=== PATIENT | female | born 1935 | race Caucasian/White ===

== ENCOUNTER 2018-01-29 16:00 | Emergency (ER) | payer OTHER ==
--- OUTSIDE RECORDS SUMMARY | 2018-01-29 16:02 | XMS REPORT | Clinical Summary ---
:1935 Author Organization [facility] Address [address] [place] [address] Phone Care Team Providers Name Role Phone Unavailable Primary Care Provider Unavailable Allergies Active Allergy Reactions Severity Noted Date Comments Ragweed 02/03/2017 Seasonal Allergies Current Medications Prescription Sig. Disp. Refills Start Date End Date Status LEVOTHYROXINE SODIUM Take 125 mcg by Active (LEVOTHYROXINE ORAL) mouth daily . losartan (COZAAR) 25 Take 25 mg by Active MG tablet mouth daily. LEVOCETIRIZINE Take 5 mg by mouth Active DIHYDROCHLORIDE daily. (LEVOCETIRIZINE ORAL) metoprolol Take 25 mg by Active (TOPROL-XL) 25 MG 24 mouth daily. hr tablet mirabegron Take by mouth. Active (MYRBETRIQ) 50 mg Tb24 gabapentin Take 300 mg by Active (NEURONTIN) 300 MG mouth 3 (three) capsule times daily. amLODIPine (NORVASC) Take 10 mg by Active 10 MG tablet mouth nightly. glucosamine-chondroit Take by mouth. Active -vit C-Mn (GLUCOSAMINE CHONDROITIN) 500-400 mg Cap coenzyme Q10 (CO Take 10 mg by Active Q-10) 10 mg capsule mouth daily. DOCOSAHEXANOIC Take by mouth. Active ACID/EPA (FISH OIL ORAL) VITS Take by mouth. Active A,C,E/LUTEIN/ZEAX/ZN/ PRABHJOT (EYE HEALTH FORMULA ORAL) phenazopyridine Take 1 tablet (100 30 tablet 0 02/12/2017 (PYRIDIUM) 100 MG mg total) by mouth 7 tablet 3 (three) times daily as needed for Pain for up to 10 days. sulfamethoxazole-trim Take 1 tablet (160 10 tablet 0 02/12/2017 ethoprim (BACTRIM DS) mg of trimethoprim 7 800-160 mg per tablet total) by mouth 2 (two) times daily for 5 days. Active Problems Problem Noted Date Stress incontinence 02/12/2017 Encounters Date Type Specialty Care Team Description 02/12/2017 Hospital Encounter Shon Swann MD 02/12/2017 Surgery Shon Swann CYSTOSCOPY,TANNER Dill MD TION OF DRUGS 02/03/2017 Hospital Encounter Pre-Admission Shon Swann MD 02/03/2017 Anesthesia Event ManoloutLinda MD after 01/28/2017 Social History Tobacco Use Types Packs/Day Years Used Date Never Smoker Sex Assigned at Date Recorded Not on file Last Filed Vital Signs Vital Sign Reading Time Taken Blood Pressure 164/71 02/12/2017 4:35 PM CDT Pulse 54 02/12/2017 4:35 PM CDT Temperature 36.6 C (97.8 F) 02/12/2017 4:35 PM CDT Respiratory Rate 16 02/12/2017 4:35 PM CDT Oxygen Saturation 99% 02/12/2017 4:35 PM CDT Inhaled Oxygen Concentration - - Weight 62.9 kg (138 lb 9.6 oz) 02/12/2017 8:19 AM CDT Height 154.9 cm (5' 1") 02/12/2017 8:19 AM CDT Body Mass Index 26.19 02/12/2017 8:19 AM CDT Plan of Treatment Not on file Implants Implanted Type Area Extracorporeal Circulation Specialist Device Expiration Model / Identifier Date Serial / Lot Ndl Inj Bulk Coaptite 1ml 890-300 - [id number] Cement/ N/A: LONOKE 2018 890-300 / Implanted: Qty: 1 on 02/12/2017 by Shon Swann MD Filler/ Urethra SCI:UROLOGY/POPCORN VENDOR / [employer] [id number] e Ndl Inj Bulk Coaptite 1ml 890-300 - [id number] Cement/ N/A: LONOKE 2018 890-300 / Implanted: Qty: 1 on 02/12/2017 by Shon Swann MD Filler/ Urethra SCI:UROLOGY/POPCORN VENDOR / [employer] [id number] e Ndl Inj Bulk Coaptite 1ml 890-300 - [id number] Cement/ N/A: LONOKE 2018 890-300 / Implanted: Qty: 1 on 02/12/2017 by Shon Swann MD Filler/ Urethra SCI:UROLOGY/POPCORN VENDOR / [employer] [id number] e Ndl Inj Bulk Coaptite 1ml 890-300 - [id number] Cement/ N/A: LONOKE 2018 890-300 / Implanted: Qty: 1 on 02/12/2017 by Shon Swann MD Filler/ Urethra SCI:UROLOGY/POPCORN VENDOR / [employer] [id number] e Procedures Procedure Name Priority Date/Time Associated Diagnosis Comments CYSTOSCOPY,INSTILLATION 02/12/2017 10:30 AM CDT Stress incontinence OF DRUGS Special Needs (COAPITE) after 01/28/2017 Results RHYTHM STRIP - SCAN (02/13/2017 10:55 AM)Hemoglobin and hematocrit (02/03/2017 10:46 AM) Component Value Ref Range Hemoglobin 13.5 12.0 - 15.0 GM/DL Hematocrit 39.6 36.0 - 45.0 % Specimen Performing Laboratory Blood [address] [address] Urinalysis w/ Microscopic (02/03/2017 10:46 AM) Component Value Ref Range Color, UA Yellow Clarity, UA Clear Specific [place], UA 1.014 1.001 - 1.035 pH, UA 5.5 5.0 - 8.0 Protein, UA Negative Negative Glucose, UA Negative Negative Ketones, UA Negative Negative Bilirubin, UA Negative Negative Blood, UA Small (A) Negative Nitrite, UA Negative Negative Leukocytes, UA Large (A) Negative Urobilinogen, UA 0.2 0.2 - 1.0 mg/dL RBC, UA 1 /HPF WBC, UA 12 /HPF Bacteria, UA Occasional Mucus Rare Squam Epithel, UA 4 /HPF Specimen Source Specimen Performing Laboratory Urine [address] [address] Urine culture (02/03/2017 10:46 AM) Component Value Ref Range Result See comment Specimen Performing Laboratory Urine - Urine, Unspecified Source [address] [address] Narrative >100,000 col/mL skin merry <10,000 col/mL Gram Negative Issa BUN and Creatinine (02/03/2017 10:45 AM) Component Value Ref Range BUN 24 (H) 7 - 21 mg/dL Creatinine 1.31 (H) 0.57 - 1.25 mg/dL EGFR 39Comment: ESTIMATED GFR IS NOT ACCURATE mL/min/1.73 sq m CREATININE CLEARANCE IN PREDICTING GLOMERULAR FILTRATION RATE. ESTIMATED GFR IS NOT APPLICABLE FOR DIALYSIS PATIENTS. Specimen Performing Laboratory Blood [address] [address] Glucose (02/03/2017 10:45 AM) Component Value Ref Range Glucose 97 70 - 105 mg/dL Specimen Performing Laboratory Blood [address] [address] Narrative Effective 09/06/2014: Reference Range Change-Adult only New: 70-105 Previous: 70-110 Electrolytes (02/03/2017 10:45 AM) Component Value Ref Range Sodium 139 136 - 145 meq/L Potassium 4.8 3.5 - 5.1 meq/L Chloride 105 98 - 107 meq/L CO2 21 (L) 22 - 29 meq/L Specimen Performing Laboratory Blood [address] [address] after 01/28/2017
--- OUTSIDE RECORDS SUMMARY | 2018-01-29 16:03 | XMS REPORT ---
:1935 Author Organization [facility] Address [address] [place] [address] Care Team Providers Name Role Phone NINI NICOLE Unavailable Unavailable Problems This patient has no known problems. Allergies, Adverse Reactions, Alerts This patient has no known allergies or adverse reactions. Medications This patient has no known medications. Results Test Description Test Time Test Comments Text Results Atomic Results Result Comments URINE CULTURE 2017-02-05 13:44:00 Test Item Value Reference Range Comments CULTURE (BEAKER) (test juit=3786) See comment >100,000 col/mL skin merry<10,000 col/mL Gram Negative [id number] 11:53:00 Test Item Value Reference Range Comments SODIUM (BEAKER) (test kgfd=934) 139 meq/L 136-145 POTASSIUM (BEAKER) (test uevg=951) 4.8 meq/L 3.5-5.1 CHLORIDE (BEAKER) (test xdwt=984) 105 meq/L 98-107 CO2 (BEAKER) (test lgdm=739) 21 meq/L 22-29 [id number] 11:53:00 Test Item Value Reference Range Comments GLUCOSE RANDOM (BEAKER) (test hhaz=649) 97 mg/dL 70-105 Effective 09/06/2014: Reference Range Change-Adult onlyNew: 70-105 Previous : 70-110BUN AND [id number] 11:53:00 Test Item Value Reference Range Comments BLOOD UREA NITROGEN 24 mg/dL 7-21 (BEAKER) (test zwdw=942) CREATININE (BEAKER) (test 1.31 mg/dL 0.57-1.25 vmtl=818) EGFR (BEAKER) (test 39 mL/min/1.73 sq m ESTIMATED GFR IS NOT wher=9303) ACCURATE CREATININE CLEARANCE IN PREDICTING GLOMERULAR FILTRATION RATE. ESTIMATED GFR IS NOT APPLICABLE FOR DIALYSIS PATIENTS. URINALYSIS W/ [id number] 11:34:00 Test Item Value Reference Range Comments COLOR (BEAKER) (test hylb=808) Yellow CLARITY (BEAKER) (test wjwd=920) Clear SPECIFIC GRAVITY UA (BEAKER) (test abzh=479) 1.014 1.001-1.035 PH UA (BEAKER) (test urwm=285) 5.5 5.0-8.0 PROTEIN UA (BEAKER) (test vkec=188) Negative Negative GLUCOSE UA (BEAKER) (test nrta=219) Negative Negative KETONES UA (BEAKER) (test yfmc=000) Negative Negative BILIRUBIN UA (BEAKER) (test yjkp=303) Negative Negative BLOOD UA (BEAKER) (test xkyb=543) Small Negative NITRITE UA (BEAKER) (test hauj=674) Negative Negative LEUKOCYTE ESTERASE UA (BEAKER) (test xdzd=525) Large Negative UROBILINOGEN UA (BEAKER) (test kxdj=624) 0.2 mg/dL 0.2-1.0 RBC UA (BEAKER) (test ortr=653) 1 /HPF WBC UA (BEAKER) (test zkpa=421) 12 /HPF BACTERIA (BEAKER) (test rznb=484) Occasional MUCUS (BEAKER) (test yqgt=2902) Rare SQUAMOUS EPITHELIAL (BEAKER) (test wijp=437) 4 /HPF SOURCE(BEAKER) (test cepq=8404) HEMOGLOBIN AND [id number] 11:30:00 Test Item Value Reference Range Comments HEMOGLOBIN (BEAKER) (test ttxw=768) 13.5 GM/DL 12.0-15.0 HEMATOCRIT (BEAKER) (test xmns=397) 39.6 % 36.0-45.0
[2018-01-29 17:26] LABS: Absolute Lymphocytes (CBC) 0.3 K/uL (0.7-4.9); Absolute Monocytes 0.2 K/uL (0.1-1.3); Basophils % 0.3 % (0-1.3); Eosinophils % 0.3 % (0-4.4); Hematocrit 34.5 % (36.0-45.0); Lymphocytes % 3.5 % (15.3-44.8); MCH 32.1 pg (27.0-35.0); MCV 96.5 fL (80-100); MPV 7.6 fL (7.6-11.3); Monocytes % 3.1 % (3.3-12.3); RBC Red Blood Cell Count 3.57 M/uL (3.86-4.86)
[2018-01-29] MEDS ORDERED: ONDANSETRON 4 MG/2 ML VIAL ONE (17:51)
[2018-01-29] MEDS ORDERED: CEFTRIAXONE/SWI 1gm 1 GM/10 ML SYR ONE (17:51)
[2018-01-29] MEDS ORDERED: NA CHLORIDE 0.9% 1,000 ML ONE (17:51)
[2018-01-29] MEDS ORDERED: CYANOCOBALAMIN 1000MCG/ML INJ IM ONE (18:00)
[2018-01-29 18:24] LABS: Potassium 4.2 mEq/L (3.6-5.0)
[2018-01-29 18:33] LABS: Blood Morphology Comment NOT SEEN (NOT SEEN); Platelet Estimate ADEQ; Urine White Blood Cell Casts OK
--- NOTE | 2018-01-29 18:36 | EDPHYS ---
Physician Documentation [facility] Name: Kathleen Lerner Age: 82 yrs Sex: Female : 1935 Arrival Date: 01/29/2018 Time: 16:03 Bed 7 Private MD: ED Physician Se Alcocer HPI: 01/29 17:09 This 82 yrs old Female presents to ER via Ambulatory with complaints of snw Vomiting. 17:09 The patient presents to the emergency department with nausea, vomiting, diarrhea. snw Onset: The symptoms/episode began/occurred suddenly, last night. Possible causes: antibiotics, penicillin, Augmentin. Associated signs and symptoms: The patient has no apparent associated signs or symptoms. Severity of symptoms: At their worst the symptoms were moderate severe. The patient has not experienced similar symptoms in the past. The patient has been recently seen by a physician: the patient's primary care provider, with similar presenting complaints, and apparently given a diagnosis of UTI, given Augmentin. Historical: - Allergies: 16:19 No Known Allergies; aj - Home Meds: 16:19 levothyroxine 88 mcg tab 1 tab once daily [Active]; gabapentin 300 mg oral cap nightly aj [Active]; furosemide 20 mg Oral tab 1 tab once daily [Active]; oxybutynin chloride 10 mg Oral tr24 1 tab once daily [Active]; amoxicillin-pot clavulanate 500-125 mg Oral tab 1 tab every 8 hours [Active]; metoprolol tartrate 25 mg Oral tab 1 tab once daily [Active]; losartan 50 mg oral tab 1 tab once daily [Active]; amlodipine 10 mg tab 1 tab once daily [Active]; Myrbetriq 50 mg oral Tb24 1 tab once daily [Active]; omeprazole 40 mg Oral cpDR 1 cap once daily [Active]; ferrous gluconate 324 mg (38 mg iron) Oral tab [Active]; - PMHx: 16:19 Hypertension; Diabetes - NIDDM; aj - PSHx: 16:19 carotid stents; open back surgery; cardiac stents; Hysterectomy; cataract surgery; aj - Immunization history:: Adult Immunizations up to date. - Social history:: Smoking status: Patient/guardian denies using tobacco. ROS: 17:08 Constitutional: Negative for fever, chills, and weight loss, Eyes: Negative for injury, snw pain, redness, and discharge, ENT: Negative for injury, pain, and discharge, Neck: Negative for injury, pain, and swelling, Cardiovascular: Negative for chest pain, palpitations, and edema, Respiratory: Negative for shortness of breath, cough, wheezing, and pleuritic chest pain, Back: Negative for injury and pain, : Negative for injury, bleeding, discharge, and swelling, MS/Extremity: Negative for injury and deformity, Skin: Negative for injury, rash, and discoloration, Neuro: Negative for headache, weakness, numbness, tingling, and seizure. 17:08 Abdomen/GI: Positive for nausea, vomiting, and diarrhea, unable to tolerate Augmentin. Exam: 17:07 Constitutional: This is a well developed, well nourished patient who is awake, alert, snw and in no acute distress. Head/Face: Normocephalic, atraumatic. Eyes: Pupils equal round and reactive to light, extra-ocular motions intact. Lids and lashes normal. Conjunctiva and sclera are non-icteric and not injected. Cornea within normal limits. Periorbital areas with no swelling, redness, or edema. ENT: Nares patent. No nasal discharge, no septal abnormalities noted. Tympanic membranes are normal and external auditory canals are clear. Oropharynx with no redness, swelling, or masses, exudates, or evidence of obstruction, uvula midline. Mucous membranes moist. Neck: Trachea midline, no thyromegaly or masses palpated, and no cervical lymphadenopathy. Supple, full range of motion without nuchal rigidity, or vertebral point tenderness. No Meningismus. Chest/axilla: Normal chest wall appearance and motion. Nontender with no deformity. No lesions are appreciated. Cardiovascular: Regular rate and rhythm with a normal S1 and S2. No gallops, murmurs, or rubs. Normal PMI, no JVD. No pulse deficits. Respiratory: Lungs have equal breath sounds bilaterally, clear to auscultation and percussion. No rales, rhonchi or wheezes noted. No increased work of breathing, no retractions or nasal flaring. Back: No spinal tenderness. No costovertebral tenderness. Full range of motion. Skin: Warm, dry with normal turgor. Normal color with no rashes, no lesions, and no evidence of cellulitis. MS/ Extremity: Pulses equal, no cyanosis. Neurovascular intact. Full, normal range of motion. Neuro: Awake and alert, GCS 15, oriented to person, place, time, and situation. Cranial nerves II-XII grossly intact. Motor strength 5/5 in all extremities. Sensory grossly intact. Cerebellar exam normal. Normal gait. 17:07 Abdomen/GI: Inspection: abdomen appears normal, Bowel sounds: normal, Palpation: abdomen is soft and non-tender. Vital Signs: 16:19 BP 165 / 65; Pulse 86; Resp 17; Temp 98.6; Pulse Ox 99% on R/A; Weight 63.5 kg; Height aj 5 ft. 1 in. (154.94 cm); Pain 0/10; 17:30 BP 159 / 72; Pulse 81; Resp 18; Pulse Ox 99% on R/A; ph 18:36 BP 154 / 53; Pulse 81; Resp 18; Pulse Ox 99% on R/A; ph 16:19 Body Mass Index 26.45 (63.50 kg, 154.94 cm) aj MDM: 16:23 Patient medically screened. snw 18:51 Data reviewed: vital signs, nurses notes. Data interpreted: Pulse oximetry: on room air snw is 99 %. Interpretation: normal. Counseling: I had a detailed discussion with the patient and/or guardian regarding: the historical points, exam findings, and any diagnostic results supporting the discharge/admit diagnosis, the presence of at least one elevated blood pressure reading (>120/80) during this emergency department visit, lab results, the need for outpatient follow up, to return to the emergency department if symptoms worsen or persist or if there are any questions or concerns that arise at home. Special discussion: Based on the patient's Hx, exam, and Dx evaluation, there is no indication for emergent surgery or inpatient Tx. It is understood by the patient/guardian that if the Sx's persist or worsen they need to return immediately for re-evaluation. I have referred the patient to see his PCP for further evaluation of high blood pressure. Based on the history and exam findings, there is no indication for further emergent testing or inpatient evaluation. I discussed with the patient/guardian the need to see the primary care provider for further evaluation of the symptoms. 01/29 16:56 Order name: CBC with Diff; Complete Time: 18:35 snw 01/29 16:56 Order name: Chem 7; Complete Time: 18:30 snw 01/29 16:56 Order name: Blood Culture* sn 01/29 18:33 Order name: CBC Smear Scan; Complete Time: 18:35 EDMS 01/29 16:24 Order name: FSBS; Complete Time: 18:20 snw Administered Medications: 17:44 Drug: Zofran 4 mg Route: PO; hb 18:46 Follow up: Response: No adverse reaction; Nausea is decreased hb 17:44 Drug: Rocephin 1 grams Route: IV; Rate: calculated rate; Site: right antecubital; hb 19:26 Follow up: Response: No adverse reaction; IV Status: Completed infusion ph 17:44 Drug: NS 0.9% 500 ml Route: IV; Rate: bolus; Site: right antecubital; hb 19:26 Follow up: Response: No adverse reaction; IV Status: Completed infusion ph 18:05 Drug: Cyanocobalamin 1000 mcg Route: IM; Site: right deltoid; hb 18:38 Follow up: Response: No adverse reaction ph 18:25 Drug: NS 0.9% 1000 ml Route: IV; Rate: 125 ml/hr; Site: right antecubital; hb 19:25 Follow up: Response: No adverse reaction; IV Status: Completed infusion ph Point of Care Testing: Blood Glucose: 17:23 Blood Glucose: 111 mg/dL; bm6 Ranges: Critical Glucose Levels:Adult <50 mg/dl or >400 mg/dl <40 mg/dl or >180 mg/dl Disposition: 01/30 15:36 Co-signature as Attending Physician, Se Alcocer MD I agree with the assessment and wa plan of care. Chart complete. Disposition: 01/29/18 18:36 Discharged to Home. Impression: Urinary tract infection, site not specified, Vomiting, unspecified, Diarrhea, unspecified. - Condition is Stable. - Discharge Instructions: Food Choices to Help Relieve Diarrhea, Adult, Diarrhea, Nausea and Vomiting, Urinary Tract Infection, Rehydration, Elderly. - Prescriptions for Zofran 4 mg Oral Tablet - take 1 tablet by ORAL route every 12 hours As needed; 6 tablet. Macrobid 100 mg Oral Capsule - take 1 capsule by ORAL route every 12 hours for 10 days; 20 capsule. - Medication Reconciliation Form, Thank You Letter, Antibiotic Education, Prescription Opioid Use form. - Follow up: Private Physician; When: 1 - 2 days; Reason: Recheck today's complaints, Continuance of care, Re-evaluation by your physician. Follow up: Emergency Department; When: As needed; Reason: Worsening of condition. Signatures: Dispatcher [employer] Mallory Romero RN RN aj Therrien, Shelly, FINANCIAL PLANNER-C FINANCIAL PLANNER-Margueritew Parul Shepherd RN RN ph Baxter, Heather, RN RN [facility] MD MD tx
--- NOTE | 2018-01-29 18:36 | ER ---
Nurse's Notes [facility] Name: Kathleen Lerner Age: 82 yrs Sex: Female : 1935 Arrival Date: 01/29/2018 Time: 16:03 Bed 7 Private MD: Diagnosis: Urinary tract infection, site not specified;Vomiting, unspecified;Diarrhea, unspecified Presentation: 01/29 16:14 Presenting complaint: Patient states: Vomiting that started last night after starting aj Augmentin for UTI. Transition of care: patient was not received from another setting of care. Onset of symptoms was January 28, 2018. Care prior to arrival: None. 16:14 Method Of Arrival: Ambulatory 16:14 Acuity: VERONICA 3 aj Triage Assessment: 16:19 General: Appears in no apparent distress. uncomfortable, Behavior is calm, cooperative, aj appropriate for age. Pain: Denies pain. Neuro: Level of Consciousness is awake, alert, obeys commands, Oriented to person, place, time, situation. Respiratory: Airway is patent Respiratory effort is even, unlabored, Respiratory pattern is regular, symmetrical. GI: Reports diarrhea, nausea, vomiting. Derm: Skin is intact, is healthy with good turgor, Skin is pink, warm \T\ dry. normal. Historical: - Allergies: 16:19 No Known Allergies; aj - Home Meds: 16:19 levothyroxine 88 mcg tab 1 tab once daily [Active]; gabapentin 300 mg oral cap nightly aj [Active]; furosemide 20 mg Oral tab 1 tab once daily [Active]; oxybutynin chloride 10 mg Oral tr24 1 tab once daily [Active]; amoxicillin-pot clavulanate 500-125 mg Oral tab 1 tab every 8 hours [Active]; metoprolol tartrate 25 mg Oral tab 1 tab once daily [Active]; losartan 50 mg oral tab 1 tab once daily [Active]; amlodipine 10 mg tab 1 tab once daily [Active]; Myrbetriq 50 mg oral Tb24 1 tab once daily [Active]; omeprazole 40 mg Oral cpDR 1 cap once daily [Active]; ferrous gluconate 324 mg (38 mg iron) Oral tab [Active]; - PMHx: 16:19 Hypertension; Diabetes - NIDDM; aj - PSHx: 16:19 carotid stents; open back surgery; cardiac stents; Hysterectomy; cataract surgery; aj - Immunization history:: Adult Immunizations up to date. - Social history:: Smoking status: Patient/guardian denies using tobacco. Screenin:20 Abuse screen: Denies threats or abuse. Denies injuries from another. Nutritional ph screening: No deficits noted. Tuberculosis screening: No symptoms or risk factors identified. Fall Risk None identified. Assessment: 16:30 General: Appears in no apparent distress. comfortable, well groomed, Behavior is calm, ph cooperative, appropriate for age. 16:30 Neuro: Level of Consciousness is awake, alert, obeys commands, Oriented to person, ph place, time, situation. Cardiovascular: Capillary refill < 3 seconds Patient's skin is warm and dry. Respiratory: Airway is patent Respiratory effort is even, unlabored. GI: Abdomen is round non-distended, Bowel sounds present X 4 quads. Reports diarrhea, nausea, vomiting. Derm: Skin is intact, Skin is pink, warm \T\ dry. Musculoskeletal: Circulation, motion, and sensation intact. Range of motion: intact in all extremities. 17:30 Pain: Denies pain. ph 17:30 Reassessment: Patient appears in no apparent distress at this time. Patient and/or ph family updated on plan of care and expected duration. Pain level reassessed. Patient is alert, oriented x 3, equal unlabored respirations, skin warm/dry/pink. 18:45 Reassessment: Patient appears in no apparent distress at this time. Patient and/or ph family updated on plan of care and expected duration. Pain level reassessed. Patient is alert, oriented x 3, equal unlabored respirations, skin warm/dry/pink. Pt reports that nausea has improved, awaiting discharge. Vital Signs: 16:19 BP 165 / 65; Pulse 86; Resp 17; Temp 98.6; Pulse Ox 99% on R/A; Weight 63.5 kg; Height aj 5 ft. 1 in. (154.94 cm); Pain 0/10; 17:30 BP 159 / 72; Pulse 81; Resp 18; Pulse Ox 99% on R/A; ph 18:36 BP 154 / 53; Pulse 81; Resp 18; Pulse Ox 99% on R/A; ph 16:19 Body Mass Index 26.45 (63.50 kg, 154.94 cm) ED Course: 16:03 Patient arrived in ED. as 16:16 Triage completed. aj 16:19 Arm band placed on right wrist. Patient placed in an exam room. aj 16:22 Reny Ramos FNP-C [facility]. snw 16:22 Se Alcocer MD is Attending Physician. snw 17:22 Inserted saline lock: 22 gauge in right antecubital area, using aseptic technique. bm6 Blood collected. 17:40 Parul Shepherd RN is Primary Nurse. ph 18:20 Patient has correct armband on for positive identification. Bed in low position. Call ph light in reach. Side rails up X 1. Pulse ox on. NIBP on. Warm blanket given. 19:24 No provider procedures requiring assistance completed. IV discontinued, intact, ph bleeding controlled, No redness/swelling at site. Pressure dressing applied. Administered Medications: 17:44 Drug: Zofran 4 mg Route: PO; hb 18:46 Follow up: Response: No adverse reaction; Nausea is decreased hb 17:44 Drug: Rocephin 1 grams Route: IV; Rate: calculated rate; Site: right antecubital; hb 19:26 Follow up: Response: No adverse reaction; IV Status: Completed infusion ph 17:44 Drug: NS 0.9% 500 ml Route: IV; Rate: bolus; Site: right antecubital; hb 19:26 Follow up: Response: No adverse reaction; IV Status: Completed infusion ph 18:05 Drug: Cyanocobalamin 1000 mcg Route: IM; Site: right deltoid; hb 18:38 Follow up: Response: No adverse reaction ph 18:25 Drug: NS 0.9% 1000 ml Route: IV; Rate: 125 ml/hr; Site: right antecubital; hb 19:25 Follow up: Response: No adverse reaction; IV Status: Completed infusion ph Point of Care Testing: Blood Glucose: 17:23 Blood Glucose: 111 mg/dL; bm6 Ranges: Outcome: 18:36 Discharge ordered by . snw 19:25 Discharged to home via wheelchair, with significant other. ph 19:25 Condition: good 19:25 Discharge instructions given to patient, significant other, Instructed on discharge instructions, follow up and referral plans. medication usage, Demonstrated understanding of instructions, follow-up care, medications, Prescriptions given X 2. 19:26 Patient left the ED. ph Signatures: Mallory Mcpherson RN RN aj Reny Ramos, [employer]CHO[employer] MATH TEACHER-C [employer] MATH TEACHER-[employer] Marcela Maldonado Patricia, RN RN Tamia Rubi RN RN Christopher Carrasco bm6 Corrections: (The following items were deleted from the chart) 18:06 17:44 NS 0.9% 1000 ml IV at 125 ml/hr in right antecubital hb hb 18:32 16:30 General: Appears in no apparent distress. ph ph 19:24 18:29 Pain: Denies pain. ph ph
== END 2018-01-29 19:26 | disposition home or self-care (01) ==
LOC: ER 16:00
DX: N39.0 Urinary tract infection, site not specified (principal); R19.7 Diarrhea, unspecified; I10 Essential (primary) hypertension; E11.9 Type 2 diabetes mellitus without complications; Z95.818 Presence of other cardiac implants and grafts
CPT/HCPCS: 36415; 80048; 82962; 85025; 87040 ×2; 87205; 96365; 96366; 96372; 99284; J0696; J2405; J3420; J7030

== ENCOUNTER 2022-12-07 15:24 | Inpatient (IN) | payer OTHER ==
--- OUTSIDE RECORDS SUMMARY | 2022-12-07 15:30 | XMS REPORT | Continuity of Care Document ---
:[address] [facility] t Address [address] [place] [address] Support Name Relationship Address Phone NONE, PER PT Relative [address] [place] [address] Pati Melendez Spouse [address] [place] [address] MD [facility] Emergency Provider [address] [place] [address] [place] [address] PHYSICIAN, NO Primary Care Physician Unavailable Unavailab estuardo PATI MELENDEZ Family Member [address] [place] [address] Kathleen Lerner Unavailable [phone] [address] [place] [address] Kathleen Lerner Unavailable [address] [place] [address] PATI MELENDEZ OT [address] [phone] [place] [phone] DONALDO CHEN CR [address] [phone] [place] [address] PATI MELENDEZ OT [address] [place] [address] DONALDO CHEN CR [address] [phone] [place] [address] Care Team Providers Name Role Phone Sharpless Primary Care Physician Lena Garcia Attending Clinician Unavailable YADIRA TAVAREZ Attending Clinician Unavailable SARAH BARRIENTOS Attending Clinician Unavailable Dank Garzon Attending Clinician Unavailable GABRIELLE MOISE Attending Clinician Unavailable ZEV, ANGELA Attending Clinician Unavailable EMBER Attending Clinician Unavailable JASE NICOLE Attending Clinician Unavailable Dank Garzon Admitting Clinician Unavailable GABRIELLE MOISE Admitting Clinician Unavailable EMBER Admitting Clinician Unavailable Payers Payer Name Policy Type Policy Number Effective Date Expiration Date Dustin oden AETNA MEDICARE [id number] 2020 PPO 00:00:00 AETNA MEDICARE 53 [id number] Common PPO Spirit - [facility] AETNA (MEDICARE [id number] 2014 REPLACEMENT PPO) 00:00:00 MEDICARE B-[place]: [id number] 1998 [employer] 00:00:00 Problems Condition Condition Condition Status Onset Resolution Last Treating Co mments Source Name Details Category Date Date Treatment Clinician Date Gait Gait Disease Active [facility] instabilit instabilit 10-22 He alth y y 00:00: 00 Hypertensi Hypertensi Problem Active M atagor ve ve 6-27 da disorder Disorder 00:00: Episco p 00 al Health Outreac h Program Stress Stress Disease Active [facility] incontin[facility] incontinen 4-26 Selena kes ce ce 00:00: Medical 00 Center Mixed Mixed Problem Active Common incontinen stress and Sp shira ce urge - [facility] [id number] Diabetic Problem Active 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 Medical [place] [id number] Encounter Problem Active Com mon for Spirit general - CHI adult [facility] examinatio Medica l n with Center abnormal findings [id number] Hypothyroi Problem Active Com mon dism, Spirit unspecifie - CHI d [facility] [id number] Seasonal Problem Active Comm on allergies Spirit - [facility] [id number] Essential Problem Active Comm on (primary) Spirit hypertensi - CHI on [facility] [id number] Kidney Problem Active Common disease [facility] [id number] CKD Problem Active Common (chronic Spirit kidney - CHI disease) stage 4, [facility] GFR 15-29 Medical ml/min [place] [id number] Closed Problem Active Common nondisplac [facility] ed [facility] [employer] [facility] intertroch anteric [facility] fracture Medical of left Center femur, initial encounter [id number] Pain of Problem Active Comm on left hip [facility] joint - [facility] [id number] Lumbar Problem Active Common pain [facility] Allergies, Adverse Reactions, Alerts Allergy Allergy Status Severity Reaction(s) Onset Inactive Treating Comm ents Source Name Type Date Date Clinician amoxicil DA Active U UNKNOWN 2021-10 [facility] sienna 2 Clear 00:00: Reyes 00 [facility] Ragweed Propensi Active Seasonal CHI S t ty to 4-[address] [facility] adverse 00:00: Medical reaction 00 Center s No Known DA Active U [facility] Allergie 07-07 Clear s 00:00: Reyes 00 [facility] Social History Social Habit Start Date Stop Date Quantity Comments Source History of Tobacco Common [facility] - Use [facility] Exposure to Not sure [facility] [facility] SARS-CoV-2 (event) Sex Assigned At [address] [facility] 00:00:00 00:00:00 Medical Center Smoking Status Start Date Stop Date Source Tobacco smoking consumption [facility] Never Smoker [facility] Medications Ordered Filled Start Stop Current Ordering Indication Dosage Frequency Signature Comments Components Source Medication Medication Date Date Medication? Clinician (SIG) Name Name gabapentin Yes 300mg [id number] Take [address] (NEURONTIN) 4-26 [id number] mg by L ukes 300 MG 17:45: 3D mouth 3 Medical capsule 58 (three) Center times daily. amLODIPine Yes 10mg QD Take [address] (NORVASC) 4-26 by mouth [facility]ukes 10 MG 17:45: nightly. Medical tablet 58 Center glucosamine Yes Take by [facility] -[place]- 4-26 mouth. [facility]ukes vit C-Mn 17:45: Medical (GLUCOSAMIN 58 Center E CHONDROITIN ) 500-400 mg Cap coenzyme 2017-0 Yes 10mg QD Take [address] Q10 (CO - by mouth Lukes Q-10) 10 mg 17:45: daily. [facility]inez capsule 58 Center DOCOSAHEXAN 2016-0 Yes Take by [facility] OIC 4-26 mouth. Lukes ACID/EPA 17:45: Medical (FISH OIL 58 Center ORAL) VITS 2017-0 Yes Take by [facility] A,C,E/LUTEI -26 mouth. Lukes N/ZEAX/ZN/C 17:45: Medica l OPP (EYE 58 Center HEALTH FORMULA ORAL) LEVOTHYROXI 2016-0 Yes 125ug QD Take [address] SODIUM 4-26 mcg by Lukes (LEVOTHYROX 17:45: mouth Medic al INE ORAL) 58 daily . Burns losartan 2017-0 Yes 25mg QD Take [address] (COZAAR) 25 4-26 by mouth Luke s MG tablet 17:45: daily. Medica l [address] [place] [address] LEVOCETIRIZ 2017-0 Yes 5mg QD Take [address] INE 4-26 by mouth Lukes DIHYDROCHLO 17:45: daily. [facility] RIDE [address] [place] [address] (LEVOCETIRI ZINE ORAL) metoprolol 2016-0 Yes 25mg QD Take [address] (TOPROL-XL) 4-26 by mouth Luke s 25 MG 24 hr 17:45: daily. [facility] tablet [address] [place] [address] mirabegron 2017- Yes Take by [facility] (MYRBETRIQ) 4-26 mouth. Lukes 50 mg Tb24 17:45: [address] mirabegron 2017-0 Yes Take by [facility] (MYRBETRIQ) 4-26 mouth. Lukes 50 mg Tb24 17:45: [address] gabapentin 2017-0 Yes 300mg Q.[id number] Take [address] (NEURONTIN) 4-26 [id number] mg by L ukes 300 MG 17:45: 3D mouth 3 Medical capsule 58 (three) Center times daily. amLODIPine 2017- Yes 10mg QD Take [address] (NORVASC) 4-26 by mouth Lukes 10 MG 17:45: nightly. Medical tablet Center glucosamine 20170 Yes Take by [facility] -[place]- 02-12 mouth. Lukes vit C-Mn 17:45: Medical (GLUCOSAMIN 58 Center E CHONDROITIN ) 500-400 mg Cap coenzyme Yes 10mg QD Take [address] Q10 (CO - by mouth Lukes Q-10) 10 mg 17:45: daily. [facility]inez capsule 58 Center DOCOSAHEXAN Yes Take by [facility] OIC - mouth. Lukes ACID/EPA 17:45: Medical (FISH OIL 58 Center ORAL) VITS Yes Take by [facility] A,C,E/LUTEI 02-12 mouth. Lukes N/ZEAX/ZN/C 17:45: Medica l OPP (EYE 58 Center HEALTH FORMULA ORAL) LEVOTHYROXI Yes 125ug QD Take [address] SODIUM - mcg by Lukes (LEVOTHYROX 17:45: mouth Medic al INE ORAL) 58 daily . Center losartan Yes 25mg QD Take [address] (COZAAR) 25 - by mouth Luke s MG tablet 17:45: daily. Medica l 58 Center LEVOCETIRIZ Yes 5mg QD Take [address] INE -26 by mouth Lukes DIHYDROCHLO 17:45: daily. [facility] RIDE 58 Center (LEVOCETIRI ZINE ORAL) metoprolol Yes 25mg QD Take [address] (TOPROL-XL) -26 by mouth Luke s 25 MG 24 hr 17:45: daily. [facility] tablet 58 Center Myrbetriq Myrbetriq Yes Lena 1 tablet Common [place] [facility] Glucosamine Glucosamine Yes Lena 1 capsule Common Chondr Chondr [place] with a Spirit Complex Complex meal - [facility] Losartan Losartan Yes Lena 1 tablet C ommon Potassium Potassium [place] Spir it - [facility] Xyzal Xyzal Yes Lena 1 tablet Common [place] in the Spirit evening [facility] Oxybutynin Oxybutynin Yes Lena as C ommon Chloride Chloride [place] directed Sp shira [facility] Multivitami Multivitami Yes Lena as Common n Women 50+ n Women 50+ [place] directed Spirit [facility] CoQ-10 CoQ-10 Yes Lena 1 capsule Comm on [place] with a Spirit meal [facility] Amlodipine Amlodipine Yes Lena 1 tablet Common Besylate Besylate [facility] Gabapentin Gabapentin Yes Lena 1 capsule Common [facility] Spirit [facility] Levothyroxi Levothyroxi Yes Lena 1 tablet Common ne Sodium ne Sodium [place] on an Spi rit empty - CHI stomach in [facility] Lasix Lasix Yes Lena 1 tablet Common [facility] Spirit [facility] Fish Oil Fish Oil Yes Lena 1 capsule Common [facility] CoQ-10 30 CoQ-10 30 No 1{capsu QD CoQ-10 30 MG MG le_with MG _a_meal } Fish Oil Fish Oil No 1{capsu QD Fish Oil 1000 MG 1000 MG le} 1000 MG CoQ-10 30 CoQ-10 30 No 1{capsu QD CoQ-10 30 MG MG le_with MG _a_meal } Levothyroxi Levothyroxi No QD Levothyrox ne Sodium ne Sodium ine Sodium 88 MCG 88 MCG 88 MCG Losartan Losartan No 1{table QD Losartan Potassium Potassium t} Potassium 50 MG 50 MG 50 MG amLODIPine amLODIPine No 1{table QD amLODIPine Besylate 10 Besylate 10 t} Besylate 10 Xyzal 5 MG Xyzal 5 MG No 1{table QD Xyzal 5 MG t_in_th e_eveni ng} Glucosamine Glucosamine No 1{capsu QD Glucosamin Chondr Chondr le_with e Chondr Complex Complex _a_meal Complex 500-400 MG 500-400 MG } 500-400 MG Lasix 20 MG Lasix 20 MG No 1{table QD Lasix 20 t} MG Multivitami Multivitami No Multivitam n Women 50+ n Women 50+ in Women - - 50+ - Oxybutynin Oxybutynin No Oxybutynin Chloride 10 Chloride 10 Chloride MG MG 10 MG Gabapentin Gabapentin No 1{capsu QD Gabapentin 300 MG 300 MG le} 300 MG Fish Oil Fish Oil No 1{capsu QD Fish Oil 1000 MG 1000 MG le} 1000 MG CoQ-10 30 CoQ-10 30 No 1{capsu QD CoQ-10 30 MG MG le_with MG _a_meal } Levothyroxi Levothyroxi No QD Levothyrox ne Sodium ne Sodium ine Sodium 88 MCG 88 MCG 88 MCG Losartan Losartan No 1{table QD Losartan Potassium Potassium t} Potassium 50 MG 50 MG 50 MG amLODIPine amLODIPine No 1{table QD amLODIPine Besylate 10 Besylate 10 t} Besylate 10 Xyzal 5 MG Xyzal 5 MG No 1{table QD Xyzal 5 MG t_in_th e_eveni ng} Glucosamine Glucosamine No 1{capsu QD Glucosamin Chondr Chondr le_with e Chondr Complex Complex _a_meal Complex 500-400 MG 500-400 MG } 500-400 MG Lasix 20 MG Lasix 20 MG No 1{table QD Lasix 20 t} MG Multivitami Multivitami No Multivitam n Women 50+ n Women 50+ in Women - - 50+ - Oxybutynin Oxybutynin No Oxybutynin Chloride 10 Chloride 10 Chloride MG MG 10 MG Gabapentin Gabapentin No 1{capsu QD Gabapentin 300 MG 300 MG le} 300 MG Fish Oil Fish Oil No 1{capsu QD Fish Oil 1000 MG 1000 MG le} 1000 MG CoQ-10 30 CoQ-10 30 No 1{capsu QD CoQ-10 30 MG MG le_with MG _a_meal } Levothyroxi Levothyroxi No QD Levothyrox ne Sodium ne Sodium ine Sodium 88 MCG 88 MCG 88 MCG Losartan Losartan No 1{table QD Losartan Potassium Potassium t} Potassium 50 MG 50 MG 50 MG amLODIPine amLODIPine No 1{table QD amLODIPine Besylate 10 Besylate 10 t} Besylate 10 Xyzal 5 MG Xyzal 5 MG No 1{table QD Xyzal 5 MG t_in_th e_eveni ng} Glucosamine Glucosamine No 1{capsu QD Glucosamin Chondr Chondr le_with e Chondr Complex Complex _a_meal Complex 500-400 MG 500-400 MG } 500-400 MG Lasix 20 MG Lasix 20 MG No 1{table QD Lasix 20 t} MG Multivitami Multivitami No Multivitam n Women 50+ n Women 50+ in Women - - 50+ - Oxybutynin Oxybutynin No Oxybutynin Chloride 10 Chloride 10 Chloride MG MG 10 MG Gabapentin Gabapentin No 1{capsu QD Gabapentin 300 MG 300 MG le} 300 MG Lasix 20 MG Lasix 20 MG No 1{table QD Lasix 20 t} MG Glucosamine Glucosamine No 1{capsu QD Glucosamin Chondr Chondr le_with e Chondr Complex Complex _a_meal Complex 500-400 MG 500-400 MG } 500-400 MG Toviaz Toviaz No Toviaz Tolterodine Tolterodine No Tolterodin Tartrate Tartrate e Tartrate amLODIPine amLODIPine No 1{table QD amLODIPine Besylate 10 Besylate 10 t} Besylate 10 CoQ-10 30 CoQ-10 30 No 1{capsu QD CoQ-10 30 MG MG le_with MG _a_meal } Gabapentin Gabapentin No 1{capsu QD Gabapentin 300 MG 300 MG le} 300 MG Tylenol Tylenol No Tylenol Levothyroxi Levothyroxi No QD Levothyrox ne Sodium ne Sodium ine Sodium 88 MCG 88 MCG 88 MCG Xyzal 5 MG Xyzal 5 MG No 1{table QD Xyzal 5 MG t_in_ e_eveni ng} Fish Oil Fish Oil No 1{capsu QD Fish Oil 1000 MG 1000 MG le} 1000 MG Losartan Losartan No 1{table QD Losartan Potassium Potassium t} Potassium 50 MG 50 MG 50 MG Multivitami Multivitami No Multivitam n Women 50+ n Women 50+ in Women - - 50+ - Montelukast Montelukast No Montelukas Sodium Sodium t Sodium Oxybutynin Oxybutynin No Oxybutynin Chloride 10 Chloride 10 Chloride MG MG 10 MG Losartan Losartan No 1{table QD Losartan Potassium Potassium t} Potassium 50 MG 50 MG 50 MG Toviaz Toviaz No Toaz Lasix 20 MG Lasix 20 MG No 1{table QD Lasix 20 t} MG Levothyroxi Levothyroxi No QD Levothyrox ne Sodium ne Sodium ine Sodium 88 MCG 88 MCG 88 MCG Montelukast Montelukast No Montelukas Sodium Sodium t Sodium amLODIPine amLODIPine No 1{table QD amLODIPine Besylate 10 Besylate 10 t} Besylate 10 Glucosamine Glucosamine No 1{capsu QD Glucosamin Chondr Chondr le_with e Chondr Complex Complex _a_meal Complex 500-400 MG 500-400 MG } 500-400 MG Oxybutynin Oxybutynin No Oxybutynin Chloride 10 Chloride 10 Chloride MG MG 10 MG Fish Oil Fish Oil No 1{capsu QD Fish Oil 1000 MG 1000 MG le} 1000 MG Multivitami Multivitami No Multivitam n Women 50+ n Women 50+ in Women - - 50+ - Xyzal 5 MG Xyzal 5 MG No 1{table QD Xyzal 5 MG t_in_th e_eveni ng} Gabapentin Gabapentin No 1{capsu QD Gabapentin 300 MG 300 MG le} 300 MG Tylenol Tylenol No Tylenol Tolterodine Tolterodine No Tolterodin Tartrate Tartrate e Tartrate albuterol albuterol No albuterol [place] HFA sulfate HFA sulfate da 90 90 HFA 90 [facility]isc[facility] mcg/actuati mcg/actuati mcg/actuat al on aerosol on aerosol ion Hea lth inhaler inhaler aerosol Outrea c inhaler h Program amlodipine amlodipine No amlodipine [place] 10 mg 10 mg 10 mg da tablet TK 1 tablet TK 1 tablet TK Episc[facility] T PO QD T PO QD 1 T PO QD al Health Outreac h Program furosemide furosemide No furosemide [place] 40 mg 40 mg 40 mg da tablet TK 1 tablet TK 1 tablet TK Episcop T PO QD PRF T PO QD PRF 1 T PO QD al SWELLING SWELLING PRF Health SWELLING Outreac h Program gabapentin gabapentin No gabapentin [place] 300 mg 300 mg 300 mg da capsule TK capsule TK capsule TK Episc[facility] ONE C PO D ONE C PO D ONE C PO D al Health Outreac h Program levothyroxi levothyroxi No levothyrox [place] ne 88 mcg ne 88 mcg ine 88 mcg da tablet TK 1 tablet TK 1 tablet TK Episc[facility] T PO QAM T PO QAM 1 T PO QAM a l Health Outreac h Program losartan 50 losartan 50 No losartan [place] mg tablet mg tablet 50 mg da TK 1 T PO TK 1 T PO tablet TK Episcop QD QD 1 T PO QD al Health Outreac h Program mupirocin 2 mupirocin 2 No mupirocin [place] % topical % topical 2 % da ointment ointment topical Epis gyroscope technician ointment al Health Outreac h Program Myrbetriq Myrbetriq No Myrbetriq [place] 50 mg 50 mg 50 mg da tablet,exte tablet,exte tablet,ext [facility]isc[facility] nded nded ended al release TK release TK release TK Health 1 T PO D 1 T PO D 1 T PO D Out reac h Program olopatadine olopatadine No olopatadin [place] 0.1 % eye 0.1 % eye e 0.1 % da drops INT 1 drops INT 1 eye drops Episc[facility] GTT IN OU GTT IN OU INT 1 GTT al BID PRF BID PRF IN OU BID Heal th ITCHING ITCHING PRF Outreac ITCHING h Program Restasis Restasis No Restasis [place] 0.05 % eye 0.05 % eye 0.05 % eye da drops in a drops in a drops in a [facility]isc[facility] dropperette dropperette dropperett al e Health Outreac h Program Shingrix Shingrix No Shingrix [place] (PF) 50 (PF) 50 (PF) 50 da mcg/0.5 mL mcg/0.5 mL mcg/0.5 mL Episc[facility] intramuscul intramuscul intramuscu al ar ar lar Health suspension, suspension, suspension Outreac kit ADM kit ADM , kit ADM h 0.5ML IM 0.5ML IM 0.5ML IM Pro gram UTD UTD UTD Toviaz 4 mg Toviaz 4 mg No Toviaz 4 [place] tablet,exte tablet,exte mg d a nded nded tablet,ext Episcop release TK release TK ended al 1 T PO D 1 T PO D release TK H ealth 1 T PO D Outreac h Program triamcinolo triamcinolo No triamcinol [place] ne ne one da acetonide acetonide acetonide Episc[facility] 0.1 % 0.1 % 0.1 % al topical topical topical Health cream cream cream Outreac h Program Immunizations Ordered Immunization Filled Immunization Date Status Commen ts Source Name Name zoster recombinant zoster recombinant 2019-08-30 Completed [facility] 00:00:00 [facility] influenza, influenza, 2019-07-01 Completed [facility] injectable, injectable, 00:00:00 [facility] quadrivalent quadrivalent Outreach P rogram Vital Signs Vital Name Observation Time Observation Value Comments Source height 2022-03-11 14:00:00 63 [in_i] Common S [facility]irit [facility] weight 2022-03-11 14:00:00 130 [lb_av] Common S pirit - [facility] bmi 2022-03-11 14:00:00 23.03 kg/m2 Common [facility] blood pressure 2022-03-11 14:00:00 138 mm[Hg] Common [facility] blood pressure 2022-03-11 14:00:00 82 mm[Hg] Common [facility] - [facility] diastolic [facility] BP Diastolic 2020-04-15 00:00:00 76 mm[Hg] [facility] Height 2020-04-15 00:00:00 61 [in_i] [place] [facility] BMI (Body Mass 2020-04-15 00:00:00 24.5 kg/m2 [facility] auto parker [facility] Index) Health Outreach Program BP Systolic 2020-04-15 00:00:00 180 mm[Hg] [facility] Body Weight 2020-04-15 00:00:00 2075.2 [oz_av] [facility] Procedures Procedure Date / Time Performing Clinician Source Performed Total Hysterectomy 1970-10-20 00:00:00 [place] [facility] Insertion of Stent into [facility] Encounters Start End Encounter Admission Attending Care Care Encounter Source Date/Time Date/Time Type Type Clinicians Facility Department ID 2022-08-09 Outpatient [facility] [place] [id number] [place] 02:59:42 [id number] [facility] 2022-08-08 Outpatient [facility] ER [id number] [place] 12:10:41 [id number] [facility] 2022-08-05 Outpatient [facility] ER [id number] [place] 15:59:29 [id number] [facility] 2022-03-12 Outpatient [facility] [id number] Common 08:30:00 [facility] 2022-03-11 Outpatient [facility] [id number] Common 14:32:06 [facility] 2022-03-01 Outpatient TAMIKO Garcia ST[facility] [id number] Common 08:45:01 Lena [facility] 2022-02-25 Outpatient Jose [facility] STLMLC [id number] Common 08:45:02 Lena [facility] 2022-02-20 Outpatient Jose, [facility] STLMLC [id number] Common 11:10:00 Lena [facility] 2021-12-10 Outpatient CORBY, [facility] ER [id number] [place] 01:03:49 [facility] 2021-11-14 Outpatient Mitchel, [facility]C STLMLC [id number] Common 10:59:23 Lena [address]253 [facility] 2021-10-15 Outpatient [facility] ER [id number] [place] 15:36:41 [facility] 2021-09-17 Outpatient BARRIENTOS, [facility] ER [id number] [place] 12:59:16 [facility] 2022-09-28 2022-10-18 Inpatient EM Ryann, [facility] MEDI.01 [id number] [facility] 19:05:00 17:39:[address] 2022-08-04 2022-08-15 Inpatient E ALEEVIPIN, [facility] MED [id number] [facility] 04:14:00 23:00:00 GABRIELLE 2022-08-05 2022-08-05 Outpatient ZEV, [facility] ER [id number] [place] 12:30:00 12:30:00 [facility] 2022-03-12 2022-03-12 (TEL) STLMLC STLMLC [id number] Co mmon 00:00:00 00:00:00 [facility] 2022-03-11 2022-03-11 OFFICE STLMLC STLMLC [id number] Co mmon 00:00:00 00:00:00 VISIT NEW Spir it PT LEVEL 3 - [facility] 2022-02-26 2022-02-26 (TEL) STLMLC STLMLC [id number] Co mmon 00:00:00 00:00:00 [facility] 2022-02-26 2022-02-26 (TEL) STLMLC STLMLC [id number] Co mmon 00:00:00 00:00:00 [facility] 2022-02-25 2022-02-25 (TEL) STLMLC STLC [id number] Co mmon 00:00:00 00:00:00 [facility] 2021-10-22 2021-10-22 Office NAIMA Barrientos [id number] [place] 13:30:00 14:18:39 Visit Sarah MCNEAL [id number] Health [id number] 2021-10-01 2021-10-01 Office NAIMA Barrientos [id number] [place] 12:45:00 12:54:18 Visit Sarah MCNEAL [id number] Health [id number] 2020-04-24 2020-04-24 Outpatient [facility] [id number] [place] 01:02:00 01:02:[place] [id number] [place] [facility] 2020-04-17 2020-04-17 Outpatient [facility] [id number] [place] 08:17:00 08:17:[place] [id number] [place] [facility] 2020-04-15 2020-04-15 Outpatient [facility] [id number] [place] 12:03:00 12:03:[place] [id number] [place] [facility] 2020-04-15 2020-04-15 Chika BERKOWITZ [place] - [id number] M at[place]or 00:00:00 00:00:00 Aiden Gunter da Zackery, [facility] SHIFT BOSS: 1700 [facility][note 3] [id number] Kg ulloa , Ph. 2019-10-28 2019-10-28 Outpatient Bryon Loaiza [id number] Common 13:20:00 13:20:00 t [facility] [address] [facility] 2019-08-16 2019-08-16 Outpatient Bryon Loaiza [id number] Common 11:01:00 11:01:[address] [facility] 2019-08-10 2019-08-10 [facility] [id number] Common 10:00:00 10:00:[address] [facility] 2019-08-02 2019-08-02 Out[facility] [id number] Common 09:50:00 09:50:[address] [facility] 2019-07-27 2019-07-27 Out[facility] [id number] Common 11:30:00 11:30:[address] [facility] 2019-07-19 2019-07-19 Outpatient [facility] [id number] Common 07:59:00 07:59:[address] [facility] 2019-06-23 2019-06-23 Outpatient [facility] [id number] Common 08:55:00 08:55:[address] [facility] 2019-05-28 2019-05-28 Outpatient [facility] [id number] Common 09:50:00 09:50:[address] [facility] 2019-01-25 2019-01-25 Outpatient [facility] [id number] Common 13:00:00 13:00:[address] [facility] 2019-01-20 2019-01-20 Outpatient [facility] [id number] Common 09:14:00 09:14:00 t Reyes Reyes [address] [facility] 2019-01-05 2019-01-05 [facility] [id number] Common 11:23:00 11:23:[address] [facility] 2018-11-26 2018-11-26 [facility] [id number] Common 10:03:00 10:03:[address] [facility] 2018-08-11 2018-08-11 Outpatient Broyn [facility] [id number] Common 14:59:00 14:59:00 [facility] [address] [facility] 2018-07-27 2018-07-27 Outpatient Bryon Slatert 15 [id number] Common 13:15:00 13:15:00 t [facility] [address] [facility] 2018-06-15 2018-06-15 Outpatient Bryon Slatert 15 [id number] Common 14:00:00 14:00:00 [facility] [address] [facility] Results Test Description Test Time Test Comments Results Result Comments Source BASIC METABOLIC PANEL 2022-10-10 08:01:00 Test Item Value Reference Range Interpretation Comme nts SODIUM (test code = NA) 133 mEq/L 134-147 L POTASSIUM (test code = K) 4.8 mEq/L 3.4-5.0 N CHLORIDE (test code = CL) 102 mEq/L 100-108 N CARBON DIOXIDE (test code = 23 mEq/l 21-33 N CO2) ANION GAP (test code = GAP) 13 0-20 N GLUCOSE (test code = GLU) 108 mg/dL 70-110 N BLOOD UREA NITROGEN (test code 30 mg/dL 7-18 H = BUN) GLOMERULAR FILTRATION RATE 43.3 70-80 L T he Glomerular Filtration Rate is (test code = GFR) a calculat ed parameterbased on serum Creatinin e, patient age and sex. GFR values less than 60 mL/min/1.73 squ are meters are indicative ofCh ronic Kidney Disease. Values less than 15 mL/min/1.73squa re meters indicate Kidney failure. The calculation forGFR is based on the CKD-EPI (2020) calculat ion. This formulais race indifferent and is the recommended formula for GFRby the National Ki dney Foundation for Adults.The GFR will not calculate if th e sex is unknown or if thepatien t's age is <18 years. CREATININE (test code = CREAT) 1.2 mg/dL 0.6-1.3 N CALCIUM (test code = CA) 11.2 mg/dL 8.0-10.5 H CBC W/AUTO [id number] 07:34:00 Test Item Value Reference Range Interpretation Comments WHITE BLOOD CELL (test code = 5.9 x10 3/uL 4.5-11.0 N WBC) RED BLOOD CELL (test code = 2.85 x10 6/uL 3.54-5.02 L RBC) HEMOGLOBIN (test code = HGB) 9.5 g/dL 11.0-15.0 L HEMATOCRIT (test code = HCT) 28.9 % 33.0-45.0 L MEAN CELL VOLUME (test code = 101.4 fL 81.0-99.0 H MCV) MEAN CELL HGB (test code = MCH) 33.3 pg 27.0-33.0 H MEAN CELL HGB CONCETRATION 32.9 g/dL 33.0-37.0 L (test code = MCHC) RED CELL DISTRIBUTION WIDTH CV 13.2 % 11.5-14.5 N (test code = RDW) RED CELL DISTRIBUTION WIDTH SD 49.9 fL 37.0-54.0 N (test code = RDW-SD) PLATELET COUNT (test code = 455 x10 3/uL 150-400 H PLT) MEAN PLATELET VOLUME (test code 9.5 fL 7.0-9.0 H = MPV) NEUTROPHIL % (test code = NT%) 47.0 % 56.0-77.0 L IMMATURE GRANULOCYTE % (test 0.3 % 0.0-2.0 N code = IG%) LYMPHOCYTE % (test code = LY%) 34.1 % 14.0-32.0 H MONOCYTE % (test code = MO%) 15.4 % 4.8-9.0 H EOSINOPHIL % (test code = EO%) 2.9 % 0.3-3.7 N BASOPHIL % (test code = BA%) 0.3 % 0.0-2.0 N NUCLEATED RBC % (test code = 0.0 % 0-0 N NRBC%) NEUTROPHIL # (test code = NT#) 2.78 x10 3/uL 2.0-7.6 N IMMATURE GRANULOCYTE # (test 0.02 x10 3/uL 0.00-0.03 N code = IG#) LYMPHOCYTE # (test code = LY#) 2.02 x10 3/uL 1.0-3.8 N MONOCYTE # (test code = MO#) 0.91 x10 3/uL 0.1-0.8 H EOSINOPHIL # (test code = EO#) 0.17 x10 3/uL 0.0-0.2 N BASOPHIL # (test code = BA#) 0.02 x10 3/uL 0.0-0.2 N NUCLEATED RBC # (test code = 0.00 x10 3/uL 0.0-0.1 N NRBC#) MANUAL DIFF REQUIRED (test code NO = MDIFF) BASIC METABOLIC [id number] 08:25:00 Test Item Value Reference Range Interpretation Comments SODIUM (test code = 135 mEq/L 134-147 N NA) POTASSIUM (test code 5.0 mEq/L 3.4-5.0 N = K) CHLORIDE (test code 103 mEq/L 100-108 N = CL) CARBON DIOXIDE (test 24 mEq/l 21-33 N code = CO2) ANION GAP (test code 13 0-20 N = GAP) GLUCOSE (test code = 108 mg/dL 70-110 N GLU) BLOOD UREA NITROGEN 27 mg/dL 7-18 H (test code = BUN) GLOMERULAR 39.3 70-80 L The Glomerular FILTRATION RATE Filtration R ate is a (test code = GFR) calculated parameterbased on serum Creatinine, pat ient age and sex. GFR va luesless than 60 mL/min/ 1.73 square meters a re indicative ofCh ronic Kidney Disease. Values less than 15 mL/min/1.73squa re meters indicate Kidney failure. The calculation for GFR is based on the CK D-EPI (2020) calculat ion. This formulais race indifferent and is the recommended for linda for GFRby the Located within [facility] on for Adults.The GFR will not calculate if th e sex is unknown or if thepatient's ag e is <18 years. CREATININE (test 1.3 mg/dL 0.6-1.3 N code = CREAT) CALCIUM (test code = 10.5 mg/dL 8.0-10.5 N CA) CBC W/AUTO [id number] 07:15:00 Test Item Value Reference Range Interpretation Comments WHITE BLOOD CELL (test code = 7.5 x10 3/uL 4.5-11.0 N WBC) RED BLOOD CELL (test code = 2.96 x10 6/uL 3.54-5.02 L RBC) HEMOGLOBIN (test code = HGB) 9.9 g/dL 11.0-15.0 L HEMATOCRIT (test code = HCT) 29.9 % 33.0-45.0 L MEAN CELL VOLUME (test code = 101.0 fL 81.0-99.0 H MCV) MEAN CELL HGB (test code = MCH) 33.4 pg 27.0-33.0 H MEAN CELL HGB CONCETRATION 33.1 g/dL 33.0-37.0 N (test code = MCHC) RED CELL DISTRIBUTION WIDTH CV 13.9 % 11.5-14.5 N (test code = RDW) RED CELL DISTRIBUTION WIDTH SD 51.1 fL 37.0-54.0 N (test code = RDW-SD) PLATELET COUNT (test code = 384 x10 3/uL 150-400 N PLT) MEAN PLATELET VOLUME (test code 10.0 fL 7.0-9.0 H = MPV) NEUTROPHIL % (test code = NT%) 59.1 % 56.0-77.0 N IMMATURE GRANULOCYTE % (test 0.3 % 0.0-2.0 N code = IG%) LYMPHOCYTE % (test code = LY%) 22.3 % 14.0-32.0 N MONOCYTE % (test code = MO%) 15.1 % 4.8-9.0 H EOSINOPHIL % (test code = EO%) 2.9 % 0.3-3.7 N BASOPHIL % (test code = BA%) 0.3 % 0.0-2.0 N NUCLEATED RBC % (test code = 0.0 % 0-0 N NRBC%) NEUTROPHIL # (test code = NT#) 4.43 x10 3/uL 2.0-7.6 N IMMATURE GRANULOCYTE # (test 0.02 x10 3/uL 0.00-0.03 N code = IG#) LYMPHOCYTE # (test code = LY#) 1.67 x10 3/uL 1.0-3.8 N MONOCYTE # (test code = MO#) 1.13 x10 3/uL 0.1-0.8 H EOSINOPHIL # (test code = EO#) 0.22 x10 3/uL 0.0-0.2 H BASOPHIL # (test code = BA#) 0.02 x10 3/uL 0.0-0.2 N NUCLEATED RBC # (test code = 0.00 x10 3/uL 0.0-0.1 N NRBC#) MANUAL DIFF REQUIRED (test code NO = MDIFF) BASIC METABOLIC [id number] 08:01:00 Test Item Value Reference Range Interpretation Comments SODIUM (test code = 137 mEq/L 134-147 N NA) POTASSIUM (test code 4.5 mEq/L 3.4-5.0 N = K) CHLORIDE (test code 103 mEq/L 100-108 N = CL) CARBON DIOXIDE (test 25 mEq/l 21-33 N code = CO2) ANION GAP (test code 14 0-20 N = GAP) GLUCOSE (test code = 99 mg/dL 70-110 N GLU) BLOOD UREA NITROGEN 26 mg/dL 7-18 H (test code = BUN) GLOMERULAR 39.3 70-80 L The Glomerular FILTRATION RATE Filtration R ate is a (test code = GFR) calculated parameterbased on serum Creatinine, pat ient age and sex. GFR va luesless than 60 mL/min/ 1.73 square meters a re indicative ofCh ronic Kidney Disease. Values less than 15 mL/min/1.73squa re meters indicate Kidney failure. The calculation for GFR is based on the CK D-EPI (2020) calculat ion. This formulais race indifferent and is the recommended for linda for GFRby the Located within [facility] on for Adults.The GFR will not calculate if th e sex is unknown or if thepatient's ag e is <18 years. CREATININE (test 1.3 mg/dL 0.6-1.3 N code = CREAT) CALCIUM (test code = 10.7 mg/dL 8.0-10.5 H CA) CBC W/AUTO [id number] 07:57:00 Test Item Value Reference Range Interpretation Comments WHITE BLOOD CELL (test code = 6.8 x10 3/uL 4.5-11.0 N WBC) RED BLOOD CELL (test code = 3.44 x10 6/uL 3.54-5.02 L RBC) HEMOGLOBIN (test code = HGB) 11.4 g/dL 11.0-15.0 N HEMATOCRIT (test code = HCT) 35.2 % 33.0-45.0 N MEAN CELL VOLUME (test code = 102.3 fL 81.0-99.0 H MCV) MEAN CELL HGB (test code = MCH) 33.1 pg 27.0-33.0 H MEAN CELL HGB CONCETRATION 32.4 g/dL 33.0-37.0 L (test code = MCHC) RED CELL DISTRIBUTION WIDTH CV 13.9 % 11.5-14.5 N (test code = RDW) RED CELL DISTRIBUTION WIDTH SD 52.5 fL 37.0-54.0 N (test code = RDW-SD) PLATELET COUNT (test code = 422 x10 3/uL 150-400 H PLT) MEAN PLATELET VOLUME (test code 10.1 fL 7.0-9.0 H = MPV) NEUTROPHIL % (test code = NT%) 51.4 % 56.0-77.0 L IMMATURE GRANULOCYTE % (test 0.1 % 0.0-2.0 N code = IG%) LYMPHOCYTE % (test code = LY%) 30.9 % 14.0-32.0 N MONOCYTE % (test code = MO%) 14.8 % 4.8-9.0 H EOSINOPHIL % (test code = EO%) 2.5 % 0.3-3.7 N BASOPHIL % (test code = BA%) 0.3 % 0.0-2.0 N NUCLEATED RBC % (test code = 0.0 % 0-0 N NRBC%) NEUTROPHIL # (test code = NT#) 3.50 x10 3/uL 2.0-7.6 N IMMATURE GRANULOCYTE # (test 0.01 x10 3/uL 0.00-0.03 N code = IG#) LYMPHOCYTE # (test code = LY#) 2.11 x10 3/uL 1.0-3.8 N MONOCYTE # (test code = MO#) 1.01 x10 3/uL 0.1-0.8 H EOSINOPHIL # (test code = EO#) 0.17 x10 3/uL 0.0-0.2 N BASOPHIL # (test code = BA#) 0.02 x10 3/uL 0.0-0.2 N NUCLEATED RBC # (test code = 0.00 x10 3/uL 0.0-0.1 N NRBC#) MANUAL DIFF REQUIRED (test code NO = MDIFF) BASIC METABOLIC [id number] 08:06:00 Test Item Value Reference Range Interpretation Comments SODIUM (test code = 137 mEq/L 134-147 N NA) POTASSIUM (test code 4.2 mEq/L 3.4-5.0 N = K) CHLORIDE (test code 103 mEq/L 100-108 N = CL) CARBON DIOXIDE (test 26 mEq/l 21-33 N code = CO2) ANION GAP (test code 12 0-20 N = GAP) GLUCOSE (test code = 107 mg/dL 70-110 N GLU) BLOOD UREA NITROGEN 21 mg/dL 7-18 H (test code = BUN) GLOMERULAR 48.0 70-80 L The Glomerular FILTRATION RATE Filtration R ate is a (test code = GFR) calculated parameterbased on serum Creatinine, pat ient age and sex. GFR va luesless than 60 mL/min/ 1.73 square meters a re indicative ofCh ronic Kidney Disease. Values less than 15 mL/min/1.73squa re meters indicate Kidney failure. The calculation for GFR is based on the CK D-EPI (2020) calculat ion. This formulais race indifferent and is the recommended for linda for GFRby the [facility] n[facility] on for Adults.The GFR will not calculate if th e sex is unknown or if thepatient's ag e is <18 years. CREATININE (test 1.1 mg/dL 0.6-1.3 N code = CREAT) CALCIUM (test code = 10.4 mg/dL 8.0-10.5 N CA) CBC W/AUTO [id number] 07:30:00 Test Item Value Reference Range Interpretation Comments WHITE BLOOD CELL (test code = 6.6 x10 3/uL 4.5-11.0 N WBC) RED BLOOD CELL (test code = 3.03 x10 6/uL 3.54-5.02 L RBC) HEMOGLOBIN (test code = HGB) 10.1 g/dL 11.0-15.0 L HEMATOCRIT (test code = HCT) 29.8 % 33.0-45.0 L MEAN CELL VOLUME (test code = 98.3 fL 81.0-99.0 N MCV) MEAN CELL HGB (test code = MCH) 33.3 pg 27.0-33.0 H MEAN CELL HGB CONCETRATION 33.9 g/dL 33.0-37.0 N (test code = MCHC) RED CELL DISTRIBUTION WIDTH CV 13.9 % 11.5-14.5 N (test code = RDW) RED CELL DISTRIBUTION WIDTH SD 50.4 fL 37.0-54.0 N (test code = RDW-SD) PLATELET COUNT (test code = 361 x10 3/uL 150-400 N PLT) MEAN PLATELET VOLUME (test code 9.9 fL 7.0-9.0 H = MPV) NEUTROPHIL % (test code = NT%) 53.5 % 56.0-77.0 L IMMATURE GRANULOCYTE % (test 0.2 % 0.0-2.0 N code = IG%) LYMPHOCYTE % (test code = LY%) 29.9 % 14.0-32.0 N MONOCYTE % (test code = MO%) 14.0 % 4.8-9.0 H EOSINOPHIL % (test code = EO%) 2.1 % 0.3-3.7 N BASOPHIL % (test code = BA%) 0.3 % 0.0-2.0 N NUCLEATED RBC % (test code = 0.0 % 0-0 N NRBC%) NEUTROPHIL # (test code = NT#) 3.54 x10 3/uL 2.0-7.6 N IMMATURE GRANULOCYTE # (test 0.01 x10 3/uL 0.00-0.03 N code = IG#) LYMPHOCYTE # (test code = LY#) 1.98 x10 3/uL 1.0-3.8 N MONOCYTE # (test code = MO#) 0.93 x10 3/uL 0.1-0.8 H EOSINOPHIL # (test code = EO#) 0.14 x10 3/uL 0.0-0.2 N BASOPHIL # (test code = BA#) 0.02 x10 3/uL 0.0-0.2 N NUCLEATED RBC # (test code = 0.00 x10 3/uL 0.0-0.1 N NRBC#) MANUAL DIFF REQUIRED (test code NO = MDIFF) [id number] 12:09:00 Test Item Value Reference Range Interpretation Comments PHENOBARBITAL (test code 7 ug/mL 15-40 A De tection Limit = = PHENO) 3Performed At: [facility] [address] [place], [place] [id number] ra Alicia DENNIS Ph:[phone] PRIMIDONE (test code = 7.1 ug/mL 5.0-12.0 Dete ction Limit = PRIM) 0.3 <0.3 indica kirsty None Detected [id number] 12:09:00 Test Item Value Reference Range Interpretation Comments PHENOBARBITAL (test code 7.0 ug/mL 15-40 L D etection Limit = = PHENOB) 3Performed At: [facility] [address] [id number] Kyle L MD Ph:[phone] CBC W/AUTO [id number] 08:01:00 Test Item Value Reference Range Interpretation Comments WHITE BLOOD CELL (test code = 7.1 x10 3/uL 4.5-11.0 N WBC) RED BLOOD CELL (test code = 3.18 x10 6/uL 3.54-5.02 L RBC) HEMOGLOBIN (test code = HGB) 10.5 g/dL 11.0-15.0 L HEMATOCRIT (test code = HCT) 30.9 % 33.0-45.0 L MEAN CELL VOLUME (test code = 97.2 fL 81.0-99.0 N MCV) MEAN CELL HGB (test code = MCH) 33.0 pg 27.0-33.0 N MEAN CELL HGB CONCETRATION 34.0 g/dL 33.0-37.0 N (test code = MCHC) RED CELL DISTRIBUTION WIDTH CV 13.6 % 11.5-14.5 N (test code = RDW) RED CELL DISTRIBUTION WIDTH SD 48.9 fL 37.0-54.0 N (test code = RDW-SD) PLATELET COUNT (test code = 369 x10 3/uL 150-400 N PLT) MEAN PLATELET VOLUME (test code 9.8 fL 7.0-9.0 H = MPV) NEUTROPHIL % (test code = NT%) 51.0 % 56.0-77.0 L IMMATURE GRANULOCYTE % (test 0.3 % 0.0-2.0 N code = IG%) LYMPHOCYTE % (test code = LY%) 30.8 % 14.0-32.0 N MONOCYTE % (test code = MO%) 15.1 % 4.8-9.0 H EOSINOPHIL % (test code = EO%) 2.4 % 0.3-3.7 N BASOPHIL % (test code = BA%) 0.4 % 0.0-2.0 N NUCLEATED RBC % (test code = 0.0 % 0-0 N NRBC%) NEUTROPHIL # (test code = NT#) 3.61 x10 3/uL 2.0-7.6 N IMMATURE GRANULOCYTE # (test 0.02 x10 3/uL 0.00-0.03 N code = IG#) LYMPHOCYTE # (test code = LY#) 2.18 x10 3/uL 1.0-3.8 N MONOCYTE # (test code = MO#) 1.07 x10 3/uL 0.1-0.8 H EOSINOPHIL # (test code = EO#) 0.17 x10 3/uL 0.0-0.2 N BASOPHIL # (test code = BA#) 0.03 x10 3/uL 0.0-0.2 N NUCLEATED RBC # (test code = 0.00 x10 3/uL 0.0-0.1 N NRBC#) MANUAL DIFF REQUIRED (test code NO = MDIFF) BASIC METABOLIC [id number] 07:54:00 Test Item Value Reference Range Interpretation Comments SODIUM (test code = 139 mEq/L 134-147 N NA) POTASSIUM (test code 4.2 mEq/L 3.4-5.0 = K) CHLORIDE (test code 106 mEq/L 100-108 N = CL) CARBON DIOXIDE (test 23 mEq/l 21-33 N code = CO2) ANION GAP (test code 14 0-20 N = GAP) GLUCOSE (test code = 96 mg/dL 70-110 N GLU) BLOOD UREA NITROGEN 14 mg/dL 7-18 N (test code = BUN) GLOMERULAR 43.3 70-80 L The Glomerular FILTRATION RATE Filtration R ate is a (test code = GFR) calculated parameterbased on serum Creatinine, pat ient age and sex. GFR va luesless than 60 mL/min/ 1.73 square meters a re indicative ofCh ronic Kidney Disease. Values less than 15 mL/min/1.73squa re meters indicate Kidney failure. The calculation forGFR is based on the CKD-EPI (2020) calculat ion. This formulais race indifferent and is the recommended for linda for GFRby the [facility] on for Adults.The GFR will not calculate if th e sex is unknown or if thepatient's ag e is <18 years. CREATININE (test 1.2 mg/dL 0.6-1.3 N code = CREAT) CALCIUM (test code = 9.9 mg/dL 8.0-10.5 N CA) CBC W/AUTO [id number] 07:29:00 Test Item Value Reference Range Interpretation Comments WHITE BLOOD CELL (test code = 7.1 x10 3/uL 4.5-11.0 N WBC) RED BLOOD CELL (test code = 3.28 x10 6/uL 3.54-5.02 L RBC) HEMOGLOBIN (test code = HGB) 10.8 g/dL 11.0-15.0 L HEMATOCRIT (test code = HCT) 32.5 % 33.0-45.0 L MEAN CELL VOLUME (test code = 99.1 fL 81.0-99.0 H MCV) MEAN CELL HGB (test code = MCH) 32.9 pg 27.0-33.0 N MEAN CELL HGB CONCETRATION 33.2 g/dL 33.0-37.0 N (test code = MCHC) RED CELL DISTRIBUTION WIDTH CV 14.0 % 11.5-14.5 N (test code = RDW) RED CELL DISTRIBUTION WIDTH SD 50.8 fL 37.0-54.0 N (test code = RDW-SD) PLATELET COUNT (test code = 340 x10 3/uL 150-400 N PLT) MEAN PLATELET VOLUME (test code 9.9 fL 7.0-9.0 H = MPV) NEUTROPHIL % (test code = NT%) 58.1 % 56.0-77.0 N IMMATURE GRANULOCYTE % (test 0.3 % 0.0-2.0 N code = IG%) LYMPHOCYTE % (test code = LY%) 24.6 % 14.0-32.0 N MONOCYTE % (test code = MO%) 14.7 % 4.8-9.0 H EOSINOPHIL % (test code = EO%) 2.0 % 0.3-3.7 N BASOPHIL % (test code = BA%) 0.3 % 0.0-2.0 N NUCLEATED RBC % (test code = 0.0 % 0-0 N NRBC%) NEUTROPHIL # (test code = NT#) 4.11 x10 3/uL 2.0-7.6 N IMMATURE GRANULOCYTE # (test 0.02 x10 3/uL 0.00-0.03 N code = IG#) LYMPHOCYTE # (test code = LY#) 1.74 x10 3/uL 1.0-3.8 N MONOCYTE # (test code = MO#) 1.04 x10 3/uL 0.1-0.8 H EOSINOPHIL # (test code = EO#) 0.14 x10 3/uL 0.0-0.2 N BASOPHIL # (test code = BA#) 0.02 x10 3/uL 0.0-0.2 N NUCLEATED RBC # (test code = 0.00 x10 3/uL 0.0-0.1 N NRBC#) MANUAL DIFF REQUIRED (test code NO = MDIFF) BASIC METABOLIC [id number] 07:28:00 Test Item Value Reference Range Interpretation Comments SODIUM (test code = 138 mEq/L 134-147 N NA) POTASSIUM (test code 3.2 mEq/L 3.4-5.0 L = K) CHLORIDE (test code 102 mEq/L 100-108 N = CL) CARBON DIOXIDE (test 26 mEq/l 21-33 N code = CO2) ANION GAP (test code 14 0-20 N = GAP) GLUCOSE (test code = 102 mg/dL 70-110 N GLU) BLOOD UREA NITROGEN 18 mg/dL 7-18 N (test code = BUN) GLOMERULAR 30.6 70-80 L The Glomerular FILTRATION RATE Filtration R ate is a (test code = GFR) calculated parameterbased on serum Creatinine, pat ient age and sex. GFR va luesless than 60 mL/min/ 1.73 square meters a re indicative ofCh ronic Kidney Disease. Values less than 15 mL/min/1.73squa re meters indicate Kidney failure. The calculation forGFR is based on the CKD-EPI (2020) calculat ion. This formulais race indifferent and is the recommended for linda for GFRby the Located within [facility] Found[facility] on for Adults.The GFR will not calculate if th e sex is unknown or if thepatient's ag e is <18 years. CREATININE (test 1.6 mg/dL 0.6-1.3 H code = CREAT) CALCIUM (test code = 9.7 mg/dL 8.0-10.5 N CA) CBC W/AUTO [id number] 11:48:00 Test Item Value Reference Range Interpretation Comments WHITE BLOOD CELL (test code = 7.0 x10 3/uL 4.5-11.0 N WBC) RED BLOOD CELL (test code = 3.13 x10 6/uL 3.54-5.02 L RBC) HEMOGLOBIN (test code = HGB) 11.2 g/dL 11.0-15.0 N HEMATOCRIT (test code = HCT) 33.7 % 33.0-45.0 N MEAN CELL VOLUME (test code = 107.7 fL 81.0-99.0 H MCV) MEAN CELL HGB (test code = MCH) 35.8 pg 27.0-33.0 H MEAN CELL HGB CONCETRATION 33.2 g/dL 33.0-37.0 N (test code = MCHC) RED CELL DISTRIBUTION WIDTH CV 22.1 % 11.5-14.5 H (test code = RDW) RED CELL DISTRIBUTION WIDTH SD 66.0 fL 37.0-54.0 H (test code = RDW-SD) PLATELET COUNT (test code = 526 x10 3/uL 150-400 H PLT) MEAN PLATELET VOLUME (test code 12.3 fL 7.0-9.0 H = MPV) NEUTROPHIL % (test code = NT%) 53.5 % 56.0-77.0 L IMMATURE GRANULOCYTE % (test 0.4 % 0.0-2.0 N code = IG%) LYMPHOCYTE % (test code = LY%) 29.9 % 14.0-32.0 N MONOCYTE % (test code = MO%) 14.9 % 4.8-9.0 H EOSINOPHIL % (test code = EO%) 1.0 % 0.3-3.7 N BASOPHIL % (test code = BA%) 0.3 % 0.0-2.0 N NUCLEATED RBC % (test code = 0.0 % 0-0 N NRBC%) NEUTROPHIL # (test code = NT#) 3.72 x10 3/uL 2.0-7.6 N IMMATURE GRANULOCYTE # (test 0.03 x10 3/uL 0.00-0.03 N code = IG#) LYMPHOCYTE # (test code = LY#) 2.08 x10 3/uL 1.0-3.8 N MONOCYTE # (test code = MO#) 1.04 x10 3/uL 0.1-0.8 H EOSINOPHIL # (test code = EO#) 0.07 x10 3/uL 0.0-0.2 N BASOPHIL # (test code = BA#) 0.02 x10 3/uL 0.0-0.2 N NUCLEATED RBC # (test code = 0.00 x10 3/uL 0.0-0.1 N NRBC#) MANUAL DIFF REQUIRED (test code NO = MDIFF) RBC [id number] 11:48:00 Test Item Value Reference Range Interpretation Comments ANISOCYTOSIS (test code = ANISO) 2+ MACROCYTOSIS (test code = MACR) 2+ BASIC METABOLIC [id number] 09:42:00 Test Item Value Reference Range Interpretation Comments SODIUM (test code = 138 mEq/L 134-147 N NA) POTASSIUM (test code 3.4 mEq/L 3.4-5.0 = K) CHLORIDE (test code 102 mEq/L 100-108 N = CL) CARBON DIOXIDE (test 25 mEq/l 21-33 N code = CO2) ANION GAP (test code 14 0-20 N = GAP) GLUCOSE (test code = 95 mg/dL 70-110 N GLU) BLOOD UREA NITROGEN 15 mg/dL 7-18 (test code = BUN) GLOMERULAR 39.3 70-80 L The Glomerular FILTRATION RATE Filtration R ate is a (test code = GFR) calculated parameterbased on serum Creatinine, pat ient age and sex. GFR va luesless than 60 mL/min/ 1.73 square meters a re indicative ofCh ronic Kidney Disease. Values less than 15 mL/min/1.73squa re meters indicate Kidney failure. The calculation for GFR is based on the CK D-EPI (2020) calculat ion. This formulais race indifferent and is the recommended for linda for GFRby the [facility] for Ad[facility].The GFR will not calculate if th e sex is unknown or if thepatient's ag e is <18 years. CREATININE (test 1.3 mg/dL 0.6-1.3 N code = CREAT) CALCIUM (test code = 10.0 mg/dL 8.0-10.5 N CA) [id number] 10:14:00 Test Item Value Reference Range Interpretation Comments HGBA1C% (test code = HGBA1C%) 4.7 %A1C 4.8-6.0 L VITAMIN [id number] 07:47:00 Test Item Value Reference Range Interpretation Comments VITAMIN B12 (test code = VITB12) 167 pg/mL 193-986 L Indication for Test: Malabsorption/MalnutritioFOLIC [id number] 07:47:00 Test Item Value Reference Range Interpretation Comments FOLIC ACID (test code = FOL) 17.7 ng/mL 3.1-17.5 H Indication for Test: Malabsorption/MalnutritioVITAMIN D [id number] 07:47:00 Test Item Value Reference Range Interpretation Comments VITAMIN D 25-HYDROXY 12.1 ng/mL 30-100 L SPECIME N SLIGHTLY (test code = VITD25) HEMOLYZ ED.Results known to be adversely affected by hem olysis are: Potassium Magnesium LDH Phosphorus Indication for Test: Malabsorption/MalnutritioHEPATIC FUNCTION [id number] 16:53:00 Test Item Value Reference Range Interpretation Comments TOTAL PROTEIN (test code = PROT) 7.3 g/dL 6.4-8.2 N ALBUMIN (test code = ALB) 3.70 g/dL 3.4-5.0 N BILIRUBIN TOTAL (test code = 0.40 mg/dL 0.0-1.0 N BILT) BILIRUBIN DIRECT (test code = 0.10 MG/DL 0.0-0.30 N BILD) BILIRUBIN INDIRECT (test code = 0.30 MG/DL BILIND) SGOT/AST (test code = AST) 26 IUnit/L 15-37 N SGPT/ALT (test code = ALT) 11 IUnit/L 30-65 L ALKALINE PHOSPHATASE TOTAL (test 101 IUnit/L 20-125 N code = ALKP) CREATINE KINASE (CK)2022-09-27 16:53:00 Test Item Value Reference Range Interpretation Comments CREATINE KINASE (CK) (test code = 28 Units/L 34-145 L CK) TSH REFLEX TO [id number] 16:53:00 Test Item Value Reference Range Interpretation Comments TSH REFLEX TO FT4 (test code = 1.00 IU/mL 0.42-5.47 N TSHREFLEX) TROP-I HIGH [id number] 16:53:00 Test Item Value Reference Range Interpretation Comments TROP-I HIGH 4 ng/L 0-34 N CAUTION: Units of the SENSITIVITY (test current te st methodology code = TROPIHS) (ng/L) diffe rfrom the prior test methodolog y (ng/mL) by a factor of 1000. 99th Percentile Upper Reference Limit (URL): Females: 34 ng/LMales: 54 n g/L In order to distinguish acute elevations of h igh sensitivitytrop onin from other clinical conditions, the FourthUnive rsal Definition of M yocardial Infarction stre ssesclinical assessment and the demonstration o f a rise and/orfall in s erial troponin result s above the URL. These resu lts were obtained using Siemens [employer] IM TnI Hreagent. Results from di fferent methodologies s hould not becompared to o ne another as quantitative results and URLs mayvary by method. BASIC METABOLIC [id number] 16:53:00 Test Item Value Reference Range Interpretation Comments SODIUM (test code = 135 mEq/L 134-147 N NA) POTASSIUM (test code 4.6 mEq/L 3.4-5.0 N = K) CHLORIDE (test code 100 mEq/L 100-108 N = CL) CARBON DIOXIDE (test 30 mEq/l 21-33 N code = CO2) ANION GAP (test code 10 0-20 N = GAP) GLUCOSE (test code = 107 mg/dL 70-110 N GLU) BLOOD UREA NITROGEN 10 mg/dL 7-18 N (test code = BUN) GLOMERULAR 48.0 70-80 L The Glomerular FILTRATION RATE Filtration R ate is a (test code = GFR) calculated parameterbased on serum Creatinine, pat ient age and sex. GFR va luesless than 60 mL/min/ 1.73 square meters a re indicative ofCh ronic Kidney Disease. Values less than 15 mL/min/1.73squa re meters indicate Kidney failure. The calculation for GFR is based on the CK D-EPI (2020) calculat ion. This formulais race indifferent and is the recommended for linda for GFRby the [facility] for Adults.The GFR will not calculate if th e sex is unknown or if thepatient's ag e is <18 years. CREATININE (test 1.1 mg/dL 0.6-1.3 N code = CREAT) CALCIUM (test code = 10.5 mg/dL 8.0-10.5 N CA) [id number] 16:34:00 Test Item Value Reference Range Interpretation Comments AMMONIA (test code = AMM) 26 umol/L 11-35 N LACTIC [id number] 16:28:00 Test Item Value Reference Range Interpretation Comments LACTIC ACID (test code = LACT) 0.9 mmol/L 0.4-1.9 N UA RFLX MICR CULT IF [id number] 16:16:00 Test Item Value Reference Range Interpretation Comments UA COLOR (test code = COLU) YELLOW YEL/STRAW UA APPEARANCE (test code = CLEAR CLEAR APPU) UA GLUCOSE DIPSTICK (test code NEGATIVE NEGATIVE = DGLUU) UA BILIRUBIN DIPSTICK (test NEGATIVE NEGATIVE code = BILU) UA KETONE DIPSTICK (test code NEGATIVE NEGATIVE = KETU) UA SPECIFIC GRAVITY (test code 1.005 1.005-1.030 N = SGU) UA BLOOD DIPSTICK (test code = NEGATIVE NEGATIVE KONG) UA PH DIPSTICK (test code = 7.0 5.0-7.0 N SHARRI) UA PROTEIN DIPSTICK (test code NEGATIVE NEGATIVE = PROU) UA UROBILINIOGEN DIPSTICK 0.2 mg/dL 0.2-1.0 (test code = URO) UA NITRITE DIPSTICK (test code POSITIVE NEGATIVE A = TC) UA LEUKOCYTE ESTERASE DIPSTICK TRACE NEGATIVE A (test code = LEUU) UA WBC (test code = WBCU) 21-50 WBC/HPF 0-3 A UA RBC (test code = RBCU) 0-3 RBC/HPF 0-3 UA WBC NO REFLEX (test code = 21-50 WBC/HPF 0-3 A WBCUCL) UA BACTERIA (test code = BACU) 1+ /HPF NONE SEEN A UA SQUAMOUS CELLS (test code = NONE SEEN /HPF NONE SEEN SQU) UA HYALINE CAST (test code = 3-5 /LPF NONE SEEN HYALU) UA MUCUS (test code = MUCU) TRACE /LPF NONE SEEN Indication for culture: RiskForSepsis-no oth srcSpecimen Description: CLEAN CATCHCBC W/AUTO [id number] 15:47:00 Test Item Value Reference Range Interpretation Comments WHITE BLOOD CELL (test code = 9.0 x10 3/uL 4.5-11.0 N WBC) RED BLOOD CELL (test code = 3.52 x10 6/uL 3.54-5.02 L RBC) HEMOGLOBIN (test code = HGB) 11.9 g/dL 11.0-15.0 N HEMATOCRIT (test code = HCT) 35.2 % 33.0-45.0 N MEAN CELL VOLUME (test code = 100.0 fL 81.0-99.0 H MCV) MEAN CELL HGB (test code = MCH) 33.8 pg 27.0-33.0 H MEAN CELL HGB CONCETRATION 33.8 g/dL 33.0-37.0 N (test code = MCHC) RED CELL DISTRIBUTION WIDTH CV 14.4 % 11.5-14.5 N (test code = RDW) RED CELL DISTRIBUTION WIDTH SD 51.6 fL 37.0-54.0 N (test code = RDW-SD) PLATELET COUNT (test code = 391 x10 3/uL 150-400 N PLT) MEAN PLATELET VOLUME (test code 10.0 fL 7.0-9.0 H = MPV) NEUTROPHIL % (test code = NT%) 66.2 % 56.0-77.0 N IMMATURE GRANULOCYTE % (test 0.2 % 0.0-2.0 N code = IG%) LYMPHOCYTE % (test code = LY%) 20.4 % 14.0-32.0 N MONOCYTE % (test code = MO%) 12.0 % 4.8-9.0 H EOSINOPHIL % (test code = EO%) 1.0 % 0.3-3.7 N BASOPHIL % (test code = BA%) 0.2 % 0.0-2.0 N NUCLEATED RBC % (test code = 0.0 % 0-0 N NRBC%) NEUTROPHIL # (test code = NT#) 5.98 x10 3/uL 2.0-7.6 N IMMATURE GRANULOCYTE # (test 0.02 x10 3/uL 0.00-0.03 N code = IG#) LYMPHOCYTE # (test code = LY#) 1.84 x10 3/uL 1.0-3.8 N MONOCYTE # (test code = MO#) 1.08 x10 3/uL 0.1-0.8 H EOSINOPHIL # (test code = EO#) 0.09 x10 3/uL 0.0-0.2 N BASOPHIL # (test code = BA#) 0.02 x10 3/uL 0.0-0.2 N NUCLEATED RBC # (test code = 0.00 x10 3/uL 0.0-0.1 N NRBC#) MANUAL DIFF REQUIRED (test code NO = MDIFF) - XR CHEST 1 [id number] 00:00:00 [facility] 1935 Sex: F FAX: Roger Wasserman Morton: St: REG Name: KATHLEEN LERNER [facility] : 1935 Age/S: 87/F [address] [place] [address] Blvd Unit #: [id number] Loc: [place] [address] Phys: Roger Zee MD Acct: [id number] Dis Date: Status: REG ER PHONE #: [phone] Exam Date: 09/27/2022 1612 FAX #: [phone] Reason:Altered Mental Status EXAMS: CPT CODE: [id number] XR CHEST 1 V 53959 PROCEDURE INFORMATION: Exam: XR Chest Exam date and time: 09/27/2022 4:01 PM Age: 87 years old Clinical indication: Other: Altered mental status TECHNIQUE: Imaging protocol: Radiologic exam of the chest. Views: 1 view. COMPARISON: No relevant prior studies available. FINDINGS: Lungs: No focal consolidation. Pleural spaces: Unremarkable. No pleural effusion. No pneumothorax. Heart/Mediastinum: Cardiomegaly. Vasculature: Atherosclerotic calcifications of the aorta. Bones/joints: No acute fracture. IMPRESSION: 1. Cardiomegaly. 2. No focal consolidation. at 9255 Reported and signed by: Vikas Hernandez M.D. CC: Roger Zee MD Technologist: RT Kemar(R) Trnscrd Date/Time/By: 09/27/2022 (1656) : By: [email or web address] Orig Print D/T: S: 09/27/2022 (1656) PAGE 1 Signed Report- CT HEAD/BRAIN W/O [id number] 00:00:00 [facility] : 1935 Sex: F Name:KATHLEEN LERNER [facility] : 1935 Age/S: 87 / F [address] [place] [address] Unit #: [id number] Loc: [place] [address] Phys: Roger Zee MD Acct: [id number] Dis Date: Status: REG ER PHONE #: [phone] Exam Date: 09/27/2022 1621 FAX #: [phone] Reason: Altered Mental Status EXAMS: CPT CODE: [id number] CT HEAD/BRAIN W/O CONT [id number] PROCEDURE INFORMATION: Exam: CT Head Without Contrast Exam date and time: 09/27/2022 4:18 PM Age: 87 years old Clinical indication: Altered mental status/memory loss TECHNIQUE: Imaging protocol: Computed tomography of the head without contrast. Radiation optimization: All CT scans at this facility use at least one of these dose optimization techniques: automated exposure control; mA and/or kV adjustment per patient size (includes targeted exams where dose is matched to clinical indication); or iterative reconstruction. COMPARISON: No relevant priorstudies available. FINDINGS: Brain: No acute intracranial hemorrhage or mass effect. The geller-white matter differentiation is preserved. 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 Cerebral ventricles: The ventricles and extra-axial spaces are prominent, suggesting diffuse parenchymal volume loss. Paranasal sinuses: Visualized sinuses are unremarkable. No fluid levels. Mastoid air cells: Visualized mastoid air cells are well aerated. Orbital cavities: Bilateral intraocular lens replacements. Bones/joints: Unremarkable. No acute fracture. Soft tissues: Unremarkable. Vasculature: Atherosclerotic calcification of the carotid siphons. IMPRESSION: 1. No acute intracranial abnormality. 2. Mild chronic microangiopathic changes. at 1755 Reported and signed by: Lalito Ramírez M.D. CC: Roger Zee MD Technologist:Gregoria Jones. RT(R)(CT) CTDI: DLP: Trnscb Date/Time: 09/27/2022 (1754) [email or web address] Orig Print D/T: S: 09/27/2022 (1754) PAGE 1 Signed Report- XR HIP ELYSIA W/PELVIS 2-3 [id number] 00:00:00 [facility] : 1935 Sex: F FAX: Roger Wasserman Morton: St: REG Name: KATHLEEN LERNER [facility] : 1935 Age/S: 87/F [address] [place] [address] Unit #: [id number] Loc: [place] [address] Phys: Roger Zee MD Acct: [id number] Date: Status: [facility] ER PHONE #: [phone] Exam Date: 09/27/2022 1645 FAX #: [phone] Reason: fall, prior hip fxs s/p ORIF EXAMS: CPT CODE: [id number] XR HIP ELYSIA W/PELVIS 2-3 VIEWS 25321 PROCEDURE INFORMATION: Exam: XR Bilateral Hips Exam date and time: 09/27/2022 5:22 PM Age: 87 years old Clinical indication: Fall, bilateral hip injury., prior hip fxs S/P orif TECHNIQUE: Imaging protocol: Radiologic exam of the bilateral hips. Views: 3 or 4 views of hips with pelvis when performed. COMPARISON: No relevant prior studies available. FINDINGS: Tubes, catheters and devices: Right bipolar hip prosthesis in good position without evidence of component fracture or loosening or prosthetic dislocation. Bones/joints: No acute fracture is seen involving either hip or pelvis. There is no periprostheticfracture. The pelvic ring is intact. Postoperative change involving the left hip. There is a dynamichip screw and short intramedullary ranjeet. The hardware appears to be in good position. Osteopenia. Postoperative change involving the lower lumbosacral spine at L4-L5. Soft tissues: Unremarkable. Notes:In elderly osteoporotic patients, fractures can be very subtle or occult and therefore if there is a clinical suspicion of a fracture, CT scanning is suggested. IMPRESSION: 1. No acute fracture seen involving the pelvis or either hip. 2. Right bipolar hip prosthesis in good position without evidence of component fracture or loosening or prosthetic dislocation. 3. Postoperative change involving the lefthip. There is a dynamic hip screw and short intramedullary ranjeet. The hardware appears to be in good position. 4. Osteopenia. 5. Postoperative change involving the lower lumbosacral spine at L4- L5. at 1815 Reported and signed by: Neto Benavidez M.D. PAGE 1 Signed Report (CONTINUED) FAX: Roger Zee Morton: St: REG---- Name: KATHLEEN LERNER [facility] : 1935 Age/S: 87/F [address] [place] [address] Unit #: [id number] Loc: [place] [address] Phys: Roger Zee MD Acct: [id number] Dis Date: Status: REG ER PHONE #: [phone] Exam Date: 09/27/2022 1645 FAX #: [phone] Reason: fall, prior hip fxs s/p ORIF EXAMS: CPT CODE: [id number] XR HIP ELYSIA W/PELVIS 2-3 VIEWS 21205 (Continued) CC: Roger Zee MD Technologist: LONA ReinosoR) Trnscrd Date/Time/By: 09/27/2022 (1814) : By: [email or web address] Orig Print D/T: S: 09/27/2022 (1815) PAGE 2 Signed ReportCENTRAST[facility] [id number] 13:44:00 Test Item Value Reference Range Interpretation Comments CULTURE (BEAKER) (test code = See comment 1095) >100,000 col/mL skin merry<10,000 col/mL Gram Negative RodELECTROLYTES 2017-02-03 11:53:00 Test Item Value Reference Range Interpretation Comments SODIUM (BEAKER) (test code = 381) 139 meq/L 136-145 POTASSIUM (BEAKER) (test code = 4.8 meq/L 3.5-5.1 379) CHLORIDE (BEAKER) (test code = 382) 105 meq/L 98-107 CO2 (BEAKER) (test code = 355) 21 meq/L 22-29 L [id number] 11:53:00 Test Item Value Reference Range Interpretation Comments GLUCOSE RANDOM (BEAKER) (test code = 97 mg/dL 70-105 652) Effective 09/06/2014: Reference Range Change-Adult onlyNew: 70-105 Previous: 70-110BUN AND [id number] 11:53:00 Test Item Value Reference Range Interpretation Comments BLOOD UREA NITROGEN 24 mg/dL 7-21 H (BEAKER) (test code = 354) CREATININE (BEAKER) 1.31 mg/dL 0.57-1.25 H (test code = 358) EGFR (BEAKER) (test 39 mL/min/1.73 ESTIMA LAUREN GFR IS code = 1092) sq m NOT ACCURATE CREATININE CLEARANCE IN PREDICTING GLOMERULAR FILTRATION RATE . ESTIMATED GFR I S NOT APPLICABLE FOR DIALYSIS PATIEN TS. URINALYSIS W/ [id number] 11:34:00 Test Item Value Reference Range Interpretation Comments COLOR (BEAKER) (test code = 470) Yellow CLARITY (BEAKER) (test code = 469) Clear SPECIFIC GRAVITY UA (BEAKER) (test 1.014 1.001-1.035 code = 468) PH UA (BEAKER) (test code = 467) 5.5 5.0-8.0 PROTEIN UA (BEAKER) (test code = Negative Negative 464) GLUCOSE UA (BEAKER) (test code = Negative Negative 365) KETONES UA (BEAKER) (test code = Negative Negative 371) BILIRUBIN UA (BEAKER) (test code = Negative Negative 462) BLOOD UA (BEAKER) (test code = Small Negative A 461) NITRITE UA (BEAKER) (test code = Negative Negative 465) LEUKOCYTE ESTERASE UA (BEAKER) Large Negative A (test code = 466) UROBILINOGEN UA (BEAKER) (test 0.2 mg/dL 0.2-1.0 code = 463) RBC UA (BEAKER) (test code = 519) 1 /HPF WBC UA (BEAKER) (test code = 520) 12 /HPF BACTERIA (BEAKER) (test code = Occasional 517) MUCUS (BEAKER) (test code = 1574) Rare SQUAMOUS EPITHELIAL (BEAKER) (test 4 /HPF code = 516) SOURCE(BEAKER) (test code = 2795) HEMOGLOBIN AND [id number] 11:30:00 Test Item Value Reference Range Interpretation Comments HEMOGLOBIN (BEAKER) (test code = 13.5 GM/DL 12.0-15.0 410) HEMATOCRIT (BEAKER) (test code = 39.6 % 36.0-45.0 411)
[2022-12-07 16:32] LABS: Urine Blood Negative (Negative); Urine Glucose Negative (Negative); Urine Protein Negative (Negative); Urine Specific Gravity 1.015 (1.005-1.030)
[2022-12-07 16:33] LABS: Absolute Lymphocytes (CBC) 1.5 K/uL (0.7-4.9); Hematocrit 30.6 % (36.0-45.0); Lymphocytes % 17.8 % (15.3-44.8); MCV 95.7 fL (80-100); MPV 7.8 fL (7.6-11.3)
[2022-12-07 16:57] LABS: Albumin 3.4 g/dL (3.4-5.0); Bilirubin Total 0.3 mg/dL (0.2-1.0); Protein, Total 7.5 g/dL (6.4-8.2)
[2022-12-07 16:58] LABS: Potassium 5.5 mmol/L (3.5-5.1)
[2022-12-07 17:05] LABS: SARS-COV-2 RT PCR NEGATIVE (NEGATIVE)
[2022-12-07] MEDS ORDERED: NA CHLORIDE 0.9% 500 ML ONE (17:45)
[2022-12-07] MEDS ORDERED: NA CHLORIDE 0.9% 50 ML ONE (17:45)
[2022-12-07] MEDS ORDERED: CEFTRIAXONE 1000 MG/VIAL ONE (17:45)
[2022-12-07 18:08] LABS: Urine Bacteria None Seen /HPF (<20); Urine RBC None Seen /HPF (None Seen); Urine WBC Clump Rare /HPF (None Seen)
--- NOTE | 2022-12-07 18:21 | EDPHYS ---
Physician Documentation [facility] Name: Kathleen Lerner Age: 87 yrs Sex: Female : 1935 Arrival Date: 12/07/2022 Time: 15:27 Bed 7 Private MD: Omari Tapia ED Physician Shawn Roldan HPI: 12/07 15:30 This 87 yrs old Female presents to ER via Wheelchair with complaints of Weakness, jmm Decreased Appetite. 15:30 The patient presents to the emergency department with weakness of the. Onset: The jmm symptoms/episode began/occurred gradually. This is an 87/f with a history of dm, htn, hypothyroidism, tremors that presents to the ED with complaints of generalized weakness, difficulty walking. Currently has increased frequency, urinary pain. Denies fever, abdominal pain, vomiting. . Historical: - Allergies: 15:37 No Known Allergies; aa5 - Home Meds: 15:38 valsartan 320mg daily [Active]; primidone 50mg take 2 tabs at bedtime [Active]; aa5 amlodipine besylate 10mg daily [Active]; gabapentin 300mg daily [Active]; Plavix Oral 75 mg daily [Active]; myrbetriq er 25mg daily [Active]; levothyroxine oral 125 mcg daily [Active]; furosemide 40mg daily [Active]; montelukast 10mg daily [Active]; propranolol 30mg twice a day [Active]; - PMHx: 15:37 Diabetes - NIDDM; Hypertension; aa5 15:38 Hypothyroidism; aa5 - PSHx: 15:37 carotid stent; back sx; hysterectomy; cataracts; cardiac stent; aa5 - Immunization history:: Client reports receiving the 2nd dose of the Covid vaccine. - Social history:: Smoking status: Patient denies any tobacco usage or history of. ROS: 15:30 Cardiovascular: Negative for chest pain, palpitations, and edema, Respiratory: Negative jmm for shortness of breath, cough, wheezing, and pleuritic chest pain. 15:30 Constitutional: Positive for fatigue. 15:30 : Positive for urinary symptoms. 15:30 All other systems are negative. Exam: 15:30 Constitutional: This is a well developed, well nourished patient who is awake, alert, jmm and in no acute distress. Head/Face: atraumatic. Eyes: EOMI, no conjunctival erythema appreciated ENT: Moist Mucus Membranes Neck: Trachea midline, Supple Chest/axilla: Normal chest wall appearance and motion. Cardiovascular: Regular rate and rhythm. No edema appreciated Respiratory: Normal respirations, no respiratory distress appreciated Abdomen/GI: Non distended Back: Normal ROM Skin: General appearance color normal MS/ Extremity: Moves all extremities, no obvious deformities appreciated, no edema noted to the lower extremities 15:30 Neuro: resting tremor noted. 15:30 Psych: Behavior/mood is pleasant, cooperative. Vital Signs: 15:27 BP 189 / 53; Pulse 62; Resp 16 S; Temp 97.8(TE); Pulse Ox 99% on R/A; aa5 16:17 BP 169 / 48; Pulse 57; Pulse Ox 100% on R/A; ll1 16:41 BP 147 / 49; Pulse 57; Resp 17; Pulse Ox 99% on R/A; ll1 18:31 BP 132 / 41; Pulse 58; Resp 18; Pulse Ox 100% on R/A; ll1 19:40 BP 132 / 44; Pulse 63; Resp 16; Pulse Ox 98% on R/A; Pain 0/10; mb9 21:40 BP 148 / 45; Pulse 68; Resp 16; Pulse Ox 97% on R/A; Pain 0/10; mb9 MDM: 15:30 Patient medically screened. [facility] 18:19 Data reviewed: vital signs, nurses notes, lab test result(s). Management of patient was [facility] discussed with the following: Hospitalist: Dr. Tapia. I considered the following discharge prescriptions or medication management in the emergency department Medications were administered in the Emergency Department. See MAR. Test considered but Not performed:. Counseling: I had a detailed discussion with the patient and/or guardian regarding: the historical points, exam findings, and any diagnostic results supporting the discharge/admit diagnosis, lab results, the need for further work-up and treatment in the hospital. 12/07 15:36 Order name: CBC with Diff [facility] 12/07 15:36 Order name: CMP [facility] 12/07 15:36 Order name: Lactate w/ 2H reflex if indic. [facility] 12/07 15:36 Order name: Blood Culture Adult (2) [facility] 12/07 15:36 Order name: Urine Culture [facility] 12/07 15:36 Order name: COVID-19/FLU A+B [facility] 12/07 16:32 Order name: Urine Dipstick-Ancillary; Complete Time: 16:34 EDIA 12/07 16:56 Order name: CBC with Automated Diff; Complete Time: 16:57 EDIA 12/07 16:58 Order name: Lactate w/ 2H reflex if indic.; Complete Time: 16:58 EDMS 12/07 16:58 Order name: Comprehensive Metabolic Panel; Complete Time: 17:07 EDIA 12/07 17:06 Order name: COVID-19/FLU A+B; Complete Time: 17:07 EDIA 12/07 17:54 Order name: Urine Microscopic Only [facility] 12/07 18:38 Order name: Urine Microscopic Only; Complete Time: 19:05 [facility] 12/07 15:36 Order name: Saline Lock; Complete Time: 15:50 [facility] 12/07 15:36 Order name: Urine Dipstick-Ancillary (obtain specimen); Complete Time: 16:23 [facility] Administered Medications: 17:57 Drug: NS 0.9% 500 ml Route: IV; Rate: bolus; Site: right hand; vg1 19:13 Follow up: Response: No adverse reaction; IV Status: Completed infusion; IV Intake: ll1 500ml 17:58 Drug: Rocephin (cefTRIAXone) 1 grams Route: IV; Rate: calculated rate; Site: right hand;vg1 19:13 Follow up: Response: No adverse reaction; IV Status: Completed infusion; IV Intake: [id number] Disposition: 18:40 Co-signature as Attending Physician, Shawn Roldan MD I reviewed the patient's care rt provided by the Advanced Practice Provider and agree with the diagnosis and treatment plan. Disposition Summary: 12/07/22 18:21 Hospitalization Ordered Hospitalization Status: Observation [facility] Provider: Omari Tapia Location: Telemetry/MedSurg (observation) jmm Condition: Stable jmm Problem: an acute exacerbation jmm Symptoms: are unchanged m Bed/Room Type: Standard [facility] Room Assignment: 232(12/07/22 21:20) Diagnosis - UTI/ Urinary tract infection, site not specified jmm - Dehydration jmm - Weakness jmm Forms: - Medication Reconciliation Form jmm - SBAR form jmm Signatures: Dispatcher [employer] Bao Vizcarra PA PA jmm Calderon, Audri, RN RN aa5 Adeline Zamudio RN RN Chrissy Pa RN RN vg1 Shanice Swan RN RN ll1 Shawn Roldan MD MD rt Corrections: (The following items were deleted from the chart) 21:20 18:21 patsy
--- NOTE | 2022-12-07 18:21 | ER ---
Nurse's Notes [facility] Name: Kathleen Lerner Age: 87 yrs Sex: Female : 1935 Arrival Date: 12/07/2022 Time: 15:27 Bed 7 Private MD: Omari Tapia Diagnosis: UTI/ Urinary tract infection, site not specified;Dehydration;Weakness Presentation: 12/07 15:27 Chief complaint: Pt's family states "she's been so weak and without energy". Pt reports aa5 recent UTI. 15:27 Coronavirus screen: fatigue. Ebola Screen: Patient denies travel to an Ebola-affected [facility] area in the 21 days before illness onset. Initial Sepsis Screen: Does the patient meet any 2 criteria? No. Patient's initial sepsis screen is negative. Does the patient have a suspected source of infection? No. Patient's initial sepsis screen is negative. Risk Assessment: Do you want to hurt yourself or someone else? Patient reports no desire to harm self or others. Onset of symptoms was 2022. 15:27 Acuity: VERONICA 3 aa5 15:27 Method Of Arrival: Wheelchair aa5 Historical: - Allergies: 15:37 No Known Allergies; aa5 - Home Meds: 15:38 valsartan 320mg daily [Active]; primidone 50mg take 2 tabs at bedtime [Active]; aa5 amlodipine besylate 10mg daily [Active]; gabapentin 300mg daily [Active]; Plavix Oral 75 mg daily [Active]; myrbetriq er 25mg daily [Active]; levothyroxine oral 125 mcg daily [Active]; furosemide 40mg daily [Active]; montelukast 10mg daily [Active]; propranolol 30mg twice a day [Active]; - PMHx: 15:37 Diabetes - NIDDM; Hypertension; aa5 15:38 Hypothyroidism; aa5 - PSHx: 15:37 carotid stent; back sx; hysterectomy; cataracts; cardiac stent; aa5 - Immunization history:: Client reports receiving the 2nd dose of the Covid vaccine. - Social history:: Smoking status: Patient denies any tobacco usage or history of. Screenin:41 [facility] ED Fall Risk Assessment (Adult) History of falling in the last 3 months, ll1 including since admission Yes- physiologic fall (2 pts) Confusion or Disorientation Yes (5 pts) Impaired Gait Yes (1 pt) Mobility Assist Device Used Yes (1 pt) Score/Fall Risk Level 3 or more points = High Risk Oriented to surroundings, Maintained a safe environment, Educated pt \\T\\ family on fall prevention, incl call for assistance when getting out of bed, Hourly rounding (assess needs \\T\\ fall precautionary measures) done, Apply high fall risk patient identification: yellow non skid footwear/ fall signage, Offered frequent toileting (1:1 observation), Utilized family, sitter, or virtual shipping lead as indicated. Abuse screen: Denies threats or abuse. Nutritional screening: No deficits noted. Tuberculosis screening: No symptoms or risk factors identified. Assessment: 16:05 General: Appears ill, Behavior is calm, cooperative, appropriate for age. Pain: Denies ll1 pain. Neuro: Reports weakness. : Parent/caregiver report the patient having possible UTI. Musculoskeletal: Reports weakness in generalized. 16:18 Reassessment: No changes from previously documented assessment. Patient and/or family ll1 updated on plan of care and expected duration. Pain level reassessed. Patient is alert, oriented x 3, equal unlabored respirations, skin warm/dry/pink. 16:30 Reassessment: No changes from previously documented assessment. Patient and/or family ll1 updated on plan of care and expected duration. Pain level reassessed. Patient is alert, oriented x 3, equal unlabored respirations, skin warm/dry/pink. 17:30 Reassessment: No changes from previously documented assessment. Patient and/or family ll1 updated on plan of care and expected duration. Pain level reassessed. Patient is alert, oriented x 3, equal unlabored respirations, skin warm/dry/pink. 18:31 Reassessment: No changes from previously documented assessment. Patient and/or family ll1 updated on plan of care and expected duration. Pain level reassessed. Patient is alert, oriented x 3, equal unlabored respirations, skin warm/dry/pink. 19:00 Reassessment: received report from MATILDA garrett. mb9 19:38 General: Appears ill, Behavior is calm, cooperative, appropriate for age. Pain: Denies mb9 pain. Neuro: Level of Consciousness is awake, alert, obeys commands, Reports weakness. Cardiovascular: Capillary refill < 3 seconds is brisk Patient's skin is warm and dry. Respiratory: Airway is patent Respiratory effort is even, unlabored, Respiratory pattern is regular, symmetrical. : Denies burning with urination, vaginal itching. Derm: Skin is pink, warm \\T\\ dry. Musculoskeletal: Reports weakness in right arm, left arm, right leg and left leg. 20:45 Reassessment: No changes from previously documented assessment. Patient and/or family mb9 updated on plan of care and expected duration. Pain level reassessed. Patient is alert, oriented x 3, equal unlabored respirations, skin warm/dry/pink. 21:39 Reassessment: Attempted to call report to admitting nurse. mb9 Vital Signs: 15:27 BP 189 / 53; Pulse 62; Resp 16 S; Temp 97.8(TE); Pulse Ox 99% on R/A; aa5 16:17 BP 169 / 48; Pulse 57; Pulse Ox 100% on R/A; ll1 16:41 BP 147 / 49; Pulse 57; Resp 17; Pulse Ox 99% on R/A; ll1 18:31 BP 132 / 41; Pulse 58; Resp 18; Pulse Ox 100% on R/A; ll1 19:40 BP 132 / 44; Pulse 63; Resp 16; Pulse Ox 98% on R/A; Pain 0/10; mb9 21:40 BP 148 / 45; Pulse 68; Resp 16; Pulse Ox 97% on R/A; Pain 0/10; mb9 ED Course: 15:27 Patient arrived in ED. as 15:27 Omari Tapia MD is Private Physician. as 15:28 [facility]reiber [facility] 15:28 Shawn Roldan MD is Attending Physician. [facility] 15:34 Shanice Swan, MATILDA is Primary Nurse. ll1 15:34 Arm band placed on Patient placed in an exam room, on a stretcher. ll1 15:37 Triage completed. aa5 16:10 Inserted saline lock: 22 gauge in right hand, using aseptic technique. Blood collected. ll1 16:17 COVID-19/FLU A+B Sent. ll1 16:43 Patient has correct armband on for positive identification. Bed in low position. Call ll1 light in reach. Side rails up X2. Client placed on continuous cardiac and pulse oximetry monitoring. NIBP monitoring applied. 18:20 Omari Tapia MD is Hospitalizing Provider. patsy 18:28 Urine Microscopic Only Sent. ll1 21:40 No provider procedures requiring assistance completed. Patient admitted, IV remains in mb9 place. Administered Medications: 17:57 Drug: NS 0.9% 500 ml Route: IV; Rate: bolus; Site: right hand; vg1 19:13 Follow up: Response: No adverse reaction; IV Status: Completed infusion; IV Intake: ll1 500ml 17:58 Drug: Rocephin (cefTRIAXone) 1 grams Route: IV; Rate: calculated rate; Site: right hand;vg1 19:13 Follow up: Response: No adverse reaction; IV Status: Completed infusion; IV Intake: [id number] Medication: 16:42 VIS not applicable for this client. ll1 Intake: 19:13 IV: 500ml; Total: 500ml. ll1 19:13 IV: 50ml; Total: 550ml. ll1 Outcome: 18:21 Decision to Hospitalize by Provider. patsy 22:11 Admitted to Med/surg accompanied by tech, via stretcher, room 232, with chart, Report mb9 called to MATILDA Sheldon 22:11 Condition: stable 22:11 Instructed on the need for admit. 22:14 Patient left the ED. 9 Signatures: Bao Schreiber PA PA jmm Martinez, Amelia as Calderon, Audri, RN RN aa5 Chrissy Zamudio RN RN vg1 Shanice Swan RN RN ll1 Irma Varner, RN RN mb9
[2022-12-07] MEDS ORDERED: ONDANSETRON 4 MG/2 ML VIAL IV PRN (19:21)
[2022-12-07] MEDS ORDERED: SUCRALFATE 1 GM TABLET PO PRN (20:04)
--- NOTE | 2022-12-07 20:16 | P.HP ---
Certification for Inpatient Patient admitted to: Inpatient With expected LOS: >2 Midnights Patient will require the following post-hospital care: Home Health Services Practitioner: I am a practitioner with admitting privileges, knowledge of patient current condition, hospital course, and medical plan of care. Services: Services provided to patient in accordance with Admission requirements found in Title 42 Section 412.3 of the Code of Federal Regulations Patient History Date of Service: 12/07/22 Primary Care Provider: Regina Reason for admission: acute renal failure, uti. History of Present Illness: Patient of mine who has been struggling with essential tremors for the past few months. She has been having difficulty sleeping. Has been affecting her quality of life greatly. The patient has been to Dr. Hu. had a negative mri of the brain. She has been having more difficulty. This morning she was not able to get out of bed. As stated she has been declining. She came to the ER Was found to have a uti and some elevated creatine. She will be admitted for these reasons. Allergies No Known Drug Allergies Allergy (Verified 07/11/15 14:28) Unknown No Known Allergies Allergy (Uncoded 01/29/18 19:31) Unknown Home Medications: Amlodipine Besylate [Norvasc] 10 mg PO DAILY AFTER SUPPER 07/11/15 Diphenhydramine [Benadryl Tab/Cap] 25 mg PO Q6HP PRN 07/11/15 Fluticasone/Salmeterol [Advair 100/50 Diskus*] 1 puff IH BID 07/11/15 Furosemide [Lasix] 20 mg PO DAILY 07/11/15 Levothyroxine [Synthroid] 100 mcg PO [id number] 07/11/15 Losartan Potassium [Cozaar] 100 mg PO DAILY 07/11/15 Metoprolol Succinate [Toprol Xl] 25 mg PO DAILY WITH BREAKFAST 07/11/15 Sucralfate [Carafate -Tab] 1 gm PO QIDP PRN 07/11/15 Tiotropium [place] [Spiriva] 1 spray IH DAILY 07/11/15 Review of Systems 10-point ROS is otherwise unremarkable General: Weakness Neurological: Other (tremors of the head and hands) Physical Examination - Physical Exam General: Alert, In no apparent distress HEENT: Atraumatic, PERRLA, Mucous membr. moist/pink, EOMI, Sclerae nonicteric Neck: Supple, 2+ carotid pulse no bruit, No LAD, Without JVD or thyroid abnormality Respiratory: Clear to auscultation bilaterally, Normal air movement Cardiovascular: Regular rate/rhythm, Normal S1 S2 Gastrointestinal: Normal bowel sounds, No tenderness Musculoskeletal: No tenderness Integumentary: No rashes Neurological: Other (Patient was sleeping comfortable. When awoken the tremors started ), Abnormal speech Lymphatics: No axilla or inguinal lymphadenopathy - Studies Laboratory Data (last 24 hrs) 12/07/22 16:10: Sodium 131 L, Potassium 5.5 H, BUN 38 H, Creatinine 1.52 H, Glucose 99, Total Bilirubin 0.3, AST 20, ALT 15, Alkaline Phosphatase 150 H 12/07/22 16:10: WBC 8.50, Hgb 10.5 L, Hct 30.6 L, Plt Count 481 H Assessment and Plan - Problems (Diagnosis) (1) Essential tremor Current Visit: Yes Status: Chronic Plan: will increase the primidone She was on 100mg qam and 150 qpm. Will increase to 350qpm just once a day. Will consult Dr. Hu who she sees as an outpatient (2) HTN (hypertension) Current Visit: Yes Status: Chronic Plan: Will hold the amlodipine for now. revaluate in the morning Qualifiers: Hypertension type: primary hypertension Qualified Code(s): I10 - Essential (primary) hypertension (3) UTI (urinary tract infection) Current Visit: Yes Status: Acute Plan: continue ceftriaxone Qualifiers: Urinary tract infection type: acute cystitis (4) Acute renal failure Current Visit: Yes Status: Acute Plan: Baseline creatine is 1.1. Will give gentle hydration for 12 hours and recheck the creatine in the morning Qualifiers: Acute renal failure type: unspecified Qualified Code(s): N17.9 - Acute kidney failure, unspecified Discharge Plan: Home Plan to discharge in: 24 Hours - Advance Directives Does patient have a Living Will: No Does patient have a Durable POA for Healthcare: No - Code Status/Comfort Care Code Status Assessed: No Critical Care: No Time Spent Managing Pts Care (In Minutes): 45
[2022-12-07] MEDS: DISK DISK IH SCH (21:00)
[2022-12-07] MEDS: FLUTICASONE IH SCH (21:00)
[2022-12-07] MEDS: SALMETEROL IH SCH (21:00)
[2022-12-07] MEDS: PRIMIDONE 250 MG TAB PO SCH (21:00)
[2022-12-07] MEDS: NA CHLORIDE 0.9% 1,000 ML IV SCH (23:00)
[2022-12-07] MEDS: clonazePAM 1 MG TAB PO PRN (23:57)
[2022-12-08] MEDS: ACETAMINOPHEN 500 MG TAB PO PRN ×2 (05:07→20:45)
[2022-12-08 05:43] LABS: Absolute Lymphocytes (CBC) 1.7 K/uL (0.7-4.9); Hematocrit 25.7 % (36.0-45.0); Lymphocytes % 29.5 % (15.3-44.8); MCV 96.6 fL (80-100); MPV 7.8 fL (7.6-11.3); RBC Red Blood Cell Count 2.66 M/uL (3.86-4.86)
[2022-12-08 05:49] LABS: Potassium 4.3 mmol/L (3.5-5.1)
[2022-12-08] MEDS: SALMETEROL IH SCH ×2 (09:00→21:00)
[2022-12-08] MEDS: FLUTICASONE IH SCH ×2 (09:00→21:00)
[2022-12-08] MEDS: TIOTROPIUM BROMIDE 18 MCG IH SCH (09:00)
[2022-12-08] MEDS: DISK DISK IH SCH ×2 (09:00→21:00)
[2022-12-08] MEDS: PRIMIDONE 250 MG TAB PO SCH ×2 (10:16→21:37)
[2022-12-08] MEDS: CEFTRIAXONE 1,000 MG in NA CHLORIDE 0.9% 50 ML IVPB SCH ×2 (10:19→20:44)
--- NOTE | 2022-12-08 13:12 | P.PN ---
Subjective Date of Service: 12/08/22 Primary Care Provider: Regina Chief Complaint: acute renal failure, uti. Subjective: Improving Review of Systems 10-point ROS is otherwise unremarkable General: Weakness Neurological: Other (essential tremors) Physical Examination - Vital Signs Temperature: 97.3 F Blood Pressure: 112/52 Pulse: 52 Respirations: 14 Pulse Ox (%): 95 - Physical Exam General: Alert, In no apparent distress HEENT: Atraumatic, PERRLA, EOMI Neck: Supple, JVD not distended Respiratory: Clear to auscultation bilaterally, Normal air movement Cardiovascular: Regular rate/rhythm, Normal S1 S2 Gastrointestinal: Normal bowel sounds, No tenderness Musculoskeletal: No tenderness Integumentary: No rashes Neurological: Normal speech, Normal tone, Normal affect Lymphatics: No axilla or inguinal lymphadenopathy - Studies Laboratory Data (last 24 hrs) 12/07/22 16:10: Sodium 131 L, Potassium 5.5 H, BUN 38 H, Creatinine 1.52 H, Glucose 99, Total Bilirubin 0.3, AST 20, ALT 15, Alkaline Phosphatase 150 H 12/07/22 16:10: WBC 8.50, Hgb 10.5 L, Hct 30.6 L, Plt Count 481 H Assessment And Plan - Current Problems (Diagnosis) (1) Essential tremor Current Visit: Yes Status: Chronic Plan: will increase the primidone She was on 100mg qam and 150 qpm. Will increase to 350qpm just once a day. Will consult Dr. Hu who she sees as an outpatient 12/08 will increase her to 300mg po bid (2) HTN (hypertension) Current Visit: Yes Status: Chronic Plan: Will hold the amlodipine for now. revaluate in the morning 12/08 Will hold the amlodipine today she is doing well. Qualifiers: Hypertension type: primary hypertension Qualified Code(s): I10 - Essential (primary) hypertension (3) UTI (urinary tract infection) Current Visit: Yes Status: Acute Plan: continue ceftriaxone Qualifiers: Urinary tract infection type: acute cystitis (4) Acute renal failure Current Visit: Yes Status: Acute Plan: Baseline creatine is 1.1. Will give gentle hydration for 12 hours and recheck the creatine in the morning Qualifiers: Acute renal failure type: unspecified Qualified Code(s): N17.9 - Acute kidney failure, unspecified (5) Severe protein-energy malnutrition Current Visit: Yes Status: Acute Plan: discussed with spouse. she has been getting weaker much than when she was last seen in the office. Only able to take a few steps. Needs assistance to get out of chair. Sometime even requiring an assist belt per her . This is most likely due to essential tremors. Will work on this with Dr. Hu. Discharge Plan: Home Plan to discharge in: 48 Hours - Code Status/Comfort Care Code Status Assessed: No Critical Care: No Time Spent Managing PTS Care (In Minutes): 30
[2022-12-08] MEDS: NA CHLORIDE 0.9% 1,000 ML IV SCH ×2 (13:15→21:40)
[2022-12-08] MEDS: ENOXAPARIN 30 MG/0.3 ML SQ SCH (16:42)
[2022-12-08] MEDS: clonazePAM 1 MG TAB PO PRN (20:46)
[2022-12-08] MEDS ORDERED: PRIMIDONE 250 MG TAB PO SCH (21:00)
[2022-12-08] MEDS: PRIMIDONE 50 MG TAB PO SCH (21:38)
[2022-12-09 03:03] VITALS: BMI 24.7
--- NOTE | 2022-12-09 07:59 | P.PN ---
Subjective Date of Service: 12/09/22 Primary Care Provider: Regina Chief Complaint: acute renal failure, uti. Subjective: No new changes Review of Systems 10-point ROS is otherwise unremarkable Neurological: Other (tremors) Physical Examination - Vital Signs Temperature: 97.4 F Blood Pressure: 183/59 Pulse: 67 Respirations: 18 Pulse Ox (%): 96 - Physical Exam General: Alert, In no apparent distress HEENT: Atraumatic, PERRLA, EOMI Neck: Supple, JVD not distended Respiratory: Clear to auscultation bilaterally, Normal air movement Cardiovascular: Regular rate/rhythm, Normal S1 S2 Gastrointestinal: Normal bowel sounds, No tenderness Musculoskeletal: No tenderness Integumentary: No rashes Neurological: Normal speech, Normal tone, Normal affect Lymphatics: No axilla or inguinal lymphadenopathy - Studies Microbiology Data (last 24 hrs): 12/07/22 16:15 Clean Catch Urine [place] Count - Final >100,000 CFU/ML. 12/07/22 16:15 Clean Catch Urine - Final Escherichia Coli Gram Neg Issa Assessment And Plan - Current Problems (Diagnosis) (1) Essential tremor Current Visit: Yes Status: Chronic Plan: will increase the primidone She was on 100mg qam and 150 qpm. Will increase to 350qpm just once a day. Will consult Dr. Hu who she sees as an outpatient 12/08 will increase her to 300mg po bid (2) HTN (hypertension) Current Visit: Yes Status: Chronic Plan: Will hold the amlodipine for now. revaluate in the morning 12/08 Will hold the amlodipine today she is doing well. Qualifiers: Hypertension type: primary hypertension Qualified Code(s): I10 - Essential (primary) hypertension (3) UTI (urinary tract infection) Current Visit: Yes Status: Acute Plan: continue ceftriaxone 12/09 MDS e. Coli in the urine culture. Can continue ceftriaxone. Dc on macrobid Qualifiers: Urinary tract infection type: acute cystitis (4) Acute renal failure Current Visit: Yes Status: Acute Plan: Baseline creatine is 1.1. Will give gentle hydration for 12 hours and recheck the creatine in the morning Qualifiers: Acute renal failure type: unspecified Qualified Code(s): N17.9 - Acute kidney failure, unspecified (5) Severe protein-energy malnutrition Current Visit: Yes Status: Acute Plan: discussed with spouse. she has been getting weaker much than when she was last seen in the office. Only able to take a few steps. Needs assistance to get out of chair. Sometime even requiring an assist belt per her . This is most likely due to essential tremors. Will work on this with Dr. Hu. Discharge Plan: Home Plan to discharge in: 24 Hours - Code Status/Comfort Care Code Status Assessed: No Physician Review: Patient Assessed, Agree with Above Assessment and Plan Critical Care: No Time Spent Managing PTS Care (In Minutes): 20
[2022-12-09] MEDS: PRIMIDONE 50 MG TAB PO SCH ×2 (08:48→21:35)
[2022-12-09] MEDS: PRIMIDONE 250 MG TAB PO SCH ×2 (08:48→21:34)
[2022-12-09] MEDS: AMLODIPINE 10 MG TAB PO SCH (08:49)
[2022-12-09] MEDS: CEFTRIAXONE 1,000 MG in NA CHLORIDE 0.9% 50 ML IVPB SCH ×2 (08:53→21:33)
[2022-12-09] MEDS: SALMETEROL IH SCH ×2 (08:54→21:00)
[2022-12-09] MEDS: FLUTICASONE IH SCH ×2 (08:54→21:00)
[2022-12-09] MEDS: TIOTROPIUM BROMIDE 18 MCG IH SCH (08:54)
[2022-12-09] MEDS: DISK DISK IH SCH ×2 (08:54→21:00)
[2022-12-09] MEDS: HYDRALAZINE HCL 20 MG/ML VIAL IV PRN (12:49)
[2022-12-09] MEDS ORDERED: LOPERAMIDE HCL 2 MG CAPSULE PO PRN (15:34)
[2022-12-09] MEDS: ENOXAPARIN 30 MG/0.3 ML SQ SCH (18:40)
[2022-12-09] MEDS: clonazePAM 1 MG TAB PO PRN (21:41)
--- NOTE | 2022-12-10 08:06 | P.PN ---
Subjective Date of Service: 12/10/22 Primary Care Provider: Regina Chief Complaint: acute renal failure, uti. Subjective: New changes (patient complaints that these people have her locked up.) Review of Systems is unable to be obtained Physical Examination - Vital Signs Temperature: 97.7 F Blood Pressure: 164/88 Pulse: 82 Respirations: 18 Pulse Ox (%): 96 - Physical Exam General: Delirious HEENT: Atraumatic, PERRLA, EOMI Neck: Supple, JVD not distended Respiratory: Clear to auscultation bilaterally, Normal air movement Cardiovascular: Regular rate/rhythm, Normal S1 S2 Gastrointestinal: Normal bowel sounds, No tenderness Musculoskeletal: No tenderness Integumentary: No rashes Neurological: Normal speech, Normal tone, Normal affect Lymphatics: No axilla or inguinal lymphadenopathy - Studies Microbiology Data (last 24 hrs): 12/07/22 16:15 Clean Catch Urine [place] Count - Final >100,000 CFU/ML. 12/07/22 16:15 Clean Catch Urine - Final Escherichia Coli Gram Neg Issa Assessment And Plan - Current Problems (Diagnosis) (1) Essential tremor Current Visit: Yes Status: Chronic Plan: will increase the primidone She was on 100mg qam and 150 qpm. Will increase to 350qpm just once a day. Will consult Dr. Hu who she sees as an outpatient 12/08 will increase her to 300mg po bid (2) HTN (hypertension) Current Visit: Yes Status: Chronic Plan: Will hold the amlodipine for now. revaluate in the morning 12/08 Will hold the amlodipine today she is doing well. Qualifiers: Hypertension type: primary hypertension Qualified Code(s): I10 - Essential (primary) hypertension (3) UTI (urinary tract infection) Current Visit: Yes Status: Acute Plan: continue ceftriaxone 12/09 MDS e. Coli in the urine culture. Can continue ceftriaxone. Dc on macrobid Qualifiers: Urinary tract infection type: acute cystitis (4) Acute renal failure Current Visit: Yes Status: Acute Plan: Baseline creatine is 1.1. Will give gentle hydration for 12 hours and recheck the creatine in the morning Qualifiers: Acute renal failure type: unspecified Qualified Code(s): N17.9 - Acute kidney failure, unspecified (5) Severe protein-energy malnutrition Current Visit: Yes Status: Acute Plan: discussed with spouse. she has been getting weaker much than when she was last seen in the office. Only able to take a few steps. Needs assistance to get out of chair. Sometime even requiring an assist belt per her . This is most likely due to essential tremors. Will work on this with Dr. Hu. (6) Delirium Current Visit: Yes Status: Acute Plan: stop clonazepam. Start geodan on the patient. Will discuss with her Discharge Plan: Home Plan to discharge in: Greater than 2 days - Code Status/Comfort Care Code Status Assessed: No Physician Review: Patient Assessed, Agree with Above Assessment and Plan Critical Care: No Time Spent Managing PTS Care (In Minutes): 20
[2022-12-10] MEDS: CEFTRIAXONE 1,000 MG in NA CHLORIDE 0.9% 50 ML IVPB SCH ×2 (08:23→21:10)
[2022-12-10] MEDS: DISK DISK IH SCH ×2 (08:24→21:00)
[2022-12-10] MEDS: PRIMIDONE 50 MG TAB PO SCH ×2 (08:24→21:11)
[2022-12-10] MEDS: PRIMIDONE 250 MG TAB PO SCH ×2 (08:24→21:11)
[2022-12-10] MEDS: FLUTICASONE IH SCH ×2 (08:24→21:00)
[2022-12-10] MEDS: ZIPRASIDONE 20 MG CAP PO SCH ×2 (08:24→21:11)
[2022-12-10] MEDS: SALMETEROL IH SCH ×2 (08:24→21:00)
[2022-12-10] MEDS: TIOTROPIUM BROMIDE 18 MCG IH SCH (08:24)
[2022-12-10] MEDS: AMLODIPINE 10 MG TAB PO SCH (08:24)
[2022-12-10] MEDS: HYDRALAZINE HCL 20 MG/ML VIAL IV PRN (08:25)
[2022-12-10] MEDS ORDERED: MORPHINE 2 MG/ML SYR IV ONE (09:15)
[2022-12-10] MEDS: MORPHINE 4 MG/ML SYR IV PRN (13:07)
--- NOTE | 2022-12-10 16:17 | EKG ---
Test Date: 2022-12-10 Test Time: 12:46:20 Content Publisher: CHARANJIT MEASUREMENT RESULTS: Intervals: Rate: 94 NC: 226 QRSD: 86 QT: 352 QTc: 440 [place]: P: 71 NC: 226 QRS: 35 T: 116 INTERPRETIVE STATEMENTS: Sinus rhythm with 1st degree AV block ST & T wave abnormality, consider lateral ischemia Abnormal ECG Compared to ECG 07/11/2015 14:49:37 First degree AV block now present ST (T wave) deviation now present Possible ischemia now present Electronically Signed On 12-10-22 16:16:28 [employer] by Brett Youngblood
[2022-12-10] MEDS: ENOXAPARIN 30 MG/0.3 ML SQ SCH (17:31)
--- NOTE | 2022-12-10 18:53 | CON ---
Reason For Consultation: Consultation called because of essential tremor. History Of Present Illness: Ms. Lerner is an 87-year-old right-handed patient with benign e ssential tremor, not seen in clinic, who was started on primidone with doses recently increased by Dr Alem Tapia, her primary care physician, who comes to [facility] with acute renal failure and ur inary tract infection. She has not been able to ambulate and get out of bed and is straightly declin ing with significant debility after being more immobilized. At [facility], her imaging stud y which was recently done actually did not show any acute ischemic or hemorrhagic changes and that di d include a brain MRI which was done for workup of a possible stroke. She had also had, back in 2018 , an MRI of her cervical spine, which was ordered by Dr. Hsieh and that study did show significant c ervical spinal stenosis at the C3-C4 and C4-C5 level with the canal narrowed down to 7 mm at both are as. She has not had the decompression surgery. It is not clear what her followup was with Dr. Ferdinand Hsieh, the neurosurgeon, with this study. While at [facility], she was found to have hyponatremia. Sodium down to 131 with elevated p otassium of 5.5 and elevated creatinine 1.52 and hypercalcemia at 10.4 with elevated alkaline phospha tase. She did receive hydration and has had improvement in her sodium and potassium, and slight impr ovement of her creatinine to 1.30. However, she does remain diffusely weak. Her tremors have subsid ed slightly with the increased dosage of primidone which is now 300 mg twice daily. Past Medical History: Wgx-yqnbitt-jcinxioxa diabetes mellitus, hypertension, hypothyroidism, carotid stenosis status post stent. Past Surgical History: Hysterectomy, cataract surgery, cardiac stents and carotid stents. Allergies: NO KNOWN DRUG ALLERGIES. Medications: At home, valsartan 320 mg daily, primidone 100 mg at bedtime, gabapentin 300 mg daily, Plavix 75 mg daily, Myrbetriq 25 mg daily, levothyroxine 125 mcg daily, furosemide 40 mg daily, monte lukast 10 mg daily, propranolol 30 mg twice daily. Review of Systems: Diffuse weakness, some mild confusion, slow speech, and slow interaction. Physical Examination: Vital Signs: Blood pressure 118/58, pulse 76, respiratory rate is 16 to 18, temperature 98.4, oxygen saturation 98-100%. General: Ms. Lerner is resting comfortably. She is in no significant distress. HEENT: Normocephali c, atraumatic. Sclerae anicteric. Oropharynx pink and moist. Neck: Supple. Chest: Clear. Heart: Regular. Extremities: Show no significant edema or cyanosis. Neurological: She has some intention tremor over the lower jaw and arms more than legs. Cranial ner ves show no focal deficits. She has mild diffuse weakness upper and lower extremities around 4/5 pro ximally and distally. Coordination: There is a flexion-extension tremor with arm extension and wors ened also when coming close to the face. Otherwise, symmetric reflexes. In terms of gait, she actua lly did refuse to try to work with physical therapy and reporting that she felt some discomfort in he r chest, and she needed to burp, and attempt will be made to ambulate her again when the therapist se es her later in the morning. Laboratory Studies: Complete blood count with differential shows a hemoglobin that is low at 8.5, wh ite blood cell count normal at 5.7, platelets 387. Sodium 134, creatinine 1.3, calcium 9.6. Electro cardiogram shows sinus rhythm, first-degree block, ST and T-wave abnormality, consider lateral ischem ia. Abnormal ECG. Assessment: Ms. Lerner is an 87-year-old patient with benign essential tremor, dehydration, diffuse w eakness, electrolyte abnormalities, anemia, in addition to urinary tract infection for which she has received Rocephin, hypertension. Plan: 1.Continue primidone now 300 mg twice daily. 2.Continue with treatment of urine tract infection. 3.Continue electrolyte replacement. 4.She will benefit from physical therapy along with Speech therapy perhaps at alf as she is not likely to withstand 3.5 hours of inpatient physical therapy at this point. She may follow up after discharge at Dr. Hu's clinic and Dr. Tapia's schedule. ISIAH/BRIANA Voice ID: [id number] Report ID: [id number]
[2022-12-11] MEDS: HYDRALAZINE HCL 20 MG/ML VIAL IV PRN (06:53)
[2022-12-11] MEDS: TIOTROPIUM BROMIDE 18 MCG IH SCH (09:00)
[2022-12-11] MEDS: FLUTICASONE IH SCH ×2 (09:00→21:00)
[2022-12-11] MEDS: SALMETEROL IH SCH ×2 (09:00→21:00)
[2022-12-11] MEDS: DISK DISK IH SCH ×2 (09:00→21:00)
[2022-12-11] MEDS: CEFTRIAXONE 1,000 MG in NA CHLORIDE 0.9% 50 ML IVPB SCH ×2 (09:53→21:30)
[2022-12-11] MEDS: AMLODIPINE 10 MG TAB PO SCH (09:54)
[2022-12-11] MEDS: PRIMIDONE 250 MG TAB PO SCH ×2 (09:54→21:00)
[2022-12-11] MEDS: PRIMIDONE 50 MG TAB PO SCH ×2 (09:54→21:30)
[2022-12-11] MEDS: ZIPRASIDONE 20 MG CAP PO SCH ×2 (09:54→21:30)
--- NOTE | 2022-12-11 11:17 | P.PN ---
Subjective Date of Service: 12/11/22 Primary Care Provider: Regina Chief Complaint: acute renal failure, uti. Subjective: No new changes Review of Systems is unable to be obtained Physical Examination - Vital Signs Temperature: 98.1 F Blood Pressure: 154/69 Pulse: 98 Respirations: 18 Pulse Ox (%): 96 - Physical Exam General: Alert, In no apparent distress HEENT: Atraumatic, PERRLA, EOMI Neck: Supple, JVD not distended Respiratory: Clear to auscultation bilaterally, Normal air movement Cardiovascular: Regular rate/rhythm, Normal S1 S2 Gastrointestinal: Normal bowel sounds, No tenderness Musculoskeletal: No tenderness Integumentary: No rashes Neurological: Normal speech, Normal tone, Normal affect Lymphatics: No axilla or inguinal lymphadenopathy Assessment And Plan - Current Problems (Diagnosis) (1) Essential tremor Current Visit: Yes Status: Chronic Plan: will increase the primidone She was on 100mg qam and 150 qpm. Will increase to 350qpm just once a day. Will consult Dr. Hu who she sees as an outpatient 12/08 will increase her to 300mg po bid (2) HTN (hypertension) Current Visit: Yes Status: Chronic Plan: Will hold the amlodipine for now. revaluate in the morning 12/08 Will hold the amlodipine today she is doing well. Qualifiers: Hypertension type: primary hypertension Qualified Code(s): I10 - Essential (primary) hypertension (3) UTI (urinary tract infection) Current Visit: Yes Status: Acute Plan: continue ceftriaxone 12/09 MDS e. Coli in the urine culture. Can continue ceftriaxone. Dc on macrobid Qualifiers: Urinary tract infection type: acute cystitis (4) Acute renal failure Current Visit: Yes Status: Acute Plan: Baseline creatine is 1.1. Will give gentle hydration for 12 hours and recheck the creatine in the morning Qualifiers: Acute renal failure type: unspecified Qualified Code(s): N17.9 - Acute kidney failure, unspecified (5) Severe protein-energy malnutrition Current Visit: Yes Status: Acute Plan: discussed with spouse. she has been getting weaker much than when she was last seen in the office. Only able to take a few steps. Needs assistance to get out of chair. Sometime even requiring an assist belt per her . This is most likely due to essential tremors. Will work on this with Dr. Hu. (6) Delirium Current Visit: Yes Status: Acute Plan: stop clonazepam. Start geodan on the patient. Will discuss with her (7) Chest pain Current Visit: Yes Status: Acute Plan: Patient is having chest pain yesterday. Troponins are trending up. EKG changes. Will start her on heparin and aspirin. Will discuss with Dr. Youngblood Qualifiers: Ischemic chest pain type: unstable angina pectoris Discharge Plan: Home Plan to discharge in: 24 Hours - Code Status/Comfort Care Code Status Assessed: No Physician Review: Patient Assessed, Agree with Above Assessment and Plan Critical Care: No Time Spent Managing PTS Care (In Minutes): 30
[2022-12-11] MEDS: MORPHINE 4 MG/ML SYR IV PRN ×2 (11:53→21:38)
[2022-12-11] MEDS ORDERED: HEPARIN 10,000 UNIT/10 ML VIAL IV SCH (12:00)
[2022-12-11] MEDS ORDERED: HEPARIN/D5W 25,000 UNIT/500 ML BAG IV PRN (13:00)
[2022-12-11] MEDS: ACETAMINOPHEN 500 MG TAB PO PRN (15:03)
--- NOTE | 2022-12-11 22:14 | CON ---
Date of Consultation: 12/11/2022 Reason For Consultation: Elevated troponin. History Of Present Illness: This is an elderly female, who has a past medical history of dementia, h ypertension, hypothyroidism, presented with altered mental status and apparently she complained of patterson ving some chest pain. However, she is very confused. Cardiac enzymes are borderline elevated, and s o I was consulted. Past Medical History: As outlined above. Medications: Refer to reconciliation sheet for detailed list. Allergies: NO KNOWN DRUG ALLERGIES. Family History: No premature coronary artery disease or cancer. Social History: She does not smoke or drink. Does not use any drugs. Review of Systems: All systems were reviewed. They were negative except as mentioned in HPI. Physical Examination: Vital Signs: Reviewed. Head and Neck: Pupils are equal, reactive to light. Intact eye movements. No JVD. No cervical lym phadenopathy. Neck is supple. Thyroid is not enlarged. Lungs: Clear to auscultation bilaterally. No rhonchi, wheezing, or crackles. No accessory muscle u se. Heart: Regular rate and rhythm. No extra sounds. Abdomen: Soft and nontender. Bowel sounds positive. No organomegaly. No masses or hernia. No rig idity or rebound. Extremities: No edema, clubbing, or cyanosis. Intact pulses. Skin: No rash. Neurologic: Alert, awake, however, she is confused. No focal deficits appreciated. Lymph Nodes: No cervical or axillary lymphadenopathy. Investigations: Troponin peaked at 111, BUN 35, creatinine is 1.30, hemoglobin is 8.5. Assessment And Recommendations: 1.Elevated troponin. Patient is very poor historian and I was not sure if she does have any chest p ain, as she will say yes to pretty much everything. This is probably demand. However, trend further sets of troponin until it trends down. Obtain an echo and Lexiscan nuclear stress test tomorrow and based on that, we will finalize the recommendations. Baby aspirin daily and we will start heparin i f there is a substantial increase in the troponin. 2.Hypertension. Blood pressure is controlled. SR/MODL Voice ID: [id number] Report ID: [id number]
[2022-12-12] MEDS: HYDRALAZINE HCL 20 MG/ML VIAL IV PRN (00:49)
[2022-12-12] MEDS: MORPHINE 4 MG/ML SYR IV PRN ×2 (01:47→14:47)
--- NOTE | 2022-12-12 07:51 | P.PN ---
Subjective Date of Service: 12/12/22 Primary Care Provider: Regina Chief Complaint: acute renal failure, uti. Subjective: No new changes Review of Systems is unable to be obtained Physical Examination - Vital Signs Temperature: 98.1 F Blood Pressure: 103/60 Pulse: 90 Respirations: 16 Pulse Ox (%): 95 - Physical Exam General: Delirious HEENT: Atraumatic, PERRLA, EOMI Neck: Supple, JVD not distended Respiratory: Clear to auscultation bilaterally, Normal air movement Cardiovascular: Regular rate/rhythm, Normal S1 S2 Gastrointestinal: Normal bowel sounds, No tenderness Musculoskeletal: No tenderness Integumentary: No rashes Neurological: Normal speech, Normal tone, Normal affect Lymphatics: No axilla or inguinal lymphadenopathy Assessment And Plan - Current Problems (Diagnosis) (1) Chest pain Current Visit: Yes Status: Acute Plan: d/c heparin. Her troponins are trending down. The patient was not worrisome to Dr. Youngblood. Regi for a stress test this morning. Qualifiers: Ischemic chest pain type: unstable angina pectoris (2) Essential tremor Current Visit: Yes Status: Chronic Plan: will increase the primidone She was on 100mg qam and 150 qpm. Will increase to 350qpm just once a day. Will consult Dr. Hu who she sees as an outpatient 12/08 will increase her to 300mg po bid (3) HTN (hypertension) Current Visit: Yes Status: Chronic Plan: Will hold the amlodipine for now. revaluate in the morning 12/08 Will hold the amlodipine today she is doing well. Qualifiers: Hypertension type: primary hypertension Qualified Code(s): I10 - Essential (primary) hypertension (4) UTI (urinary tract infection) Current Visit: Yes Status: Acute Plan: continue ceftriaxone 12/09 MDS e. Coli in the urine culture. Can continue ceftriaxone. Dc on macrobid Qualifiers: Urinary tract infection type: acute cystitis (5) Acute renal failure Current Visit: Yes Status: Acute Plan: Baseline creatine is 1.1. Will give gentle hydration for 12 hours and recheck the creatine in the morning Qualifiers: Acute renal failure type: unspecified Qualified Code(s): N17.9 - Acute kidney failure, unspecified (6) Severe protein-energy malnutrition Current Visit: Yes Status: Acute Plan: discussed with spouse. she has been getting weaker much than when she was last seen in the office. Only able to take a few steps. Needs assistance to get out of chair. Sometime even requiring an assist belt per her . This is most likely due to essential tremors. Will work on this with Dr. Hu. (7) Delirium Current Visit: Yes Status: Acute Plan: stop clonazepam. Start geodan on the patient. Will discuss with her Discharge Plan: Other - Code Status/Comfort Care Code Status Assessed: No Physician Review: Patient Assessed, Agree with Above Assessment and Plan Critical Care: No Time Spent Managing PTS Care (In Minutes): 20
[2022-12-12] MEDS: TIOTROPIUM BROMIDE 18 MCG IH SCH (08:26)
[2022-12-12] MEDS: SALMETEROL IH SCH ×2 (08:26→21:00)
[2022-12-12] MEDS: FLUTICASONE IH SCH ×2 (08:26→21:00)
[2022-12-12] MEDS: DISK DISK IH SCH ×2 (08:26→21:00)
[2022-12-12] MEDS ORDERED: REGADENOSON 0.4 MG/5 ML SYR IV ONE (08:31)
[2022-12-12] MEDS ORDERED: THIAMINE 200 MG/2 ML INJ IVP ONE (09:30)
[2022-12-12] MEDS: PRIMIDONE 50 MG TAB PO SCH ×3 (10:53→22:06)
[2022-12-12] MEDS: AMLODIPINE 10 MG TAB PO SCH (10:53)
[2022-12-12] MEDS: CEFTRIAXONE 1,000 MG in NA CHLORIDE 0.9% 50 ML IVPB SCH ×2 (10:53→22:05)
[2022-12-12] MEDS: PRIMIDONE 250 MG TAB PO SCH ×3 (10:53→22:06)
[2022-12-12] MEDS: ZIPRASIDONE 20 MG CAP PO SCH ×2 (10:53→21:00)
--- NOTE | 2022-12-12 12:44 | RAD REPORT ---
EXAM DESCRIPTION: NM - Rest Stress Cardiac Imaging - 12/12/2022 11:46 am CLINICAL HISTORY: ELEVATED TROPONIN COMPARISON: None. TECHNIQUE: The patient was administered 10.6 mCi of Tc 99m Sestamibi prior to resting SPECT imaging of the heart. The patient was then administered 20.5 MCi of Tc 99m Sestamibi following exercise or ph armacologic stress. Multiplanar SPECT images were reviewed. FINDINGS: There is uniformity of radiotracer uptake involving the entire left ventricular myocardiu m on rest and stress images. The left ventricular ejection fraction equals 73% IMPRESSION: Negative for a myocardial perfusion defect
[2022-12-12] MEDS: ACETAMINOPHEN 500 MG TAB PO PRN (14:40)
--- NOTE | 2022-12-12 19:46 | PN ---
Date of Progress Note: 12/12/2022 Subjective: Seen by bedside. No new complaints. Still confused. Review of Systems: No chest pain, shortness of breath, orthopnea, cough, nausea, vomiting, diarrhea. All other systems reviewed and they are negative. Physical Examination: Vital Signs: Reviewed. Head and Neck: Pupils are equal, reactive to light. Intact eye movements. No JVD. No cervical lym phadenopathy. Neck is supple. Thyroid is not enlarged. Lungs: Clear to auscultation bilaterally. No rhonchi, wheezing, or crackles. No accessory muscle u se. Heart: Regular rate and rhythm. No extra sounds. Abdomen: Soft, nontender. Bowel sounds positive. No organomegaly. No masses or hernia. No rigidi ty or rebound. Extremities: No edema, clubbing, or cyanosis. Intact pulses. Skin: No rash. Neurologic: Alert, awake, oriented x3. No acute focal deficits appreciated. Investigations: Stress test was negative for ischemia and troponin trended down to 78. Assessment/recommendation: 1.Elevated troponin. The patient is a very poor historian with advanced dementia. Stress test was negative. No further cardiac workup is recommended at the present time. 2.Acute renal failure due to dehydration. This is improved. Cardiology will sign off on the case. SR/MODL Voice ID: [id number] Report ID: [id number]
[2022-12-13] MEDS: HYDRALAZINE HCL 20 MG/ML VIAL IV PRN (06:49)
[2022-12-13] MEDS: DISK DISK IH SCH ×2 (07:30→21:00)
[2022-12-13] MEDS: SALMETEROL IH SCH ×2 (07:30→21:00)
[2022-12-13] MEDS: FLUTICASONE IH SCH ×2 (07:30→21:00)
[2022-12-13] MEDS: TIOTROPIUM BROMIDE 18 MCG IH SCH (07:31)
--- NOTE | 2022-12-13 07:44 | P.PN ---
Subjective Date of Service: 12/13/22 Primary Care Provider: Regina Chief Complaint: acute renal failure, uti. Subjective: Worsening Review of Systems is unable to be obtained Physical Examination - Vital Signs Temperature: 98.6 F Blood Pressure: 231/105 Pulse: 104 Respirations: 17 Pulse Ox (%): 94 - Physical Exam General: Delirious HEENT: Atraumatic, PERRLA, EOMI Neck: Supple, JVD not distended Respiratory: Clear to auscultation bilaterally, Normal air movement Cardiovascular: Regular rate/rhythm, Normal S1 S2 Gastrointestinal: Normal bowel sounds, No tenderness Musculoskeletal: No tenderness Integumentary: No rashes Neurological: Normal speech, Normal tone, Normal affect Lymphatics: No axilla or inguinal lymphadenopathy - Studies Microbiology Data (last 24 hrs): 12/07/22 16:25 Blood - Blood Aerobic Blood Culture - Final No growth in 5 days. 12/07/22 16:25 Blood - Blood Anaerobic Blood Culture - Final No growth in 5 days. 12/07/22 16:10 Blood - Blood Aerobic Blood Culture - Final No growth in 5 days. 12/07/22 16:10 Blood - Blood Anaerobic Blood Culture - Final No growth in 5 days. Assessment And Plan - Current Problems (Diagnosis) (1) Delirium Current Visit: Yes Status: Acute Plan: stop clonazepam. Start geodan on the patient. Will discuss with her 2.24 Patient daughter states she drinks. Her SO Kuldip states she only has one drink 2-3 times a week. Left a message with the daughter. Will need to see if there is any truth to this. Will order librim and ativan for the patient. She is very agitated this morning. Kuldip states in the morning she is usually not verbal or communicative for the past few months (2) Essential tremor Current Visit: Yes Status: Chronic Plan: will increase the primidone She was on 100mg qam and 150 qpm. Will increase to 350qpm just once a day. Will consult Dr. Hu who she sees as an outpatient 12/08 will increase her to 300mg po bid (3) HTN (hypertension) Current Visit: Yes Status: Chronic Plan: Will hold the amlodipine for now. revaluate in the morning 12/08 Will hold the amlodipine today she is doing well. Qualifiers: Hypertension type: primary hypertension Qualified Code(s): I10 - Essential (primary) hypertension (4) UTI (urinary tract infection) Current Visit: Yes Status: Acute Plan: continue ceftriaxone 12/09 MDS e. Coli in the urine culture. Can continue ceftriaxone. Dc on macrobid Qualifiers: Urinary tract infection type: acute cystitis (5) Acute renal failure Current Visit: Yes Status: Acute Plan: Baseline creatine is 1.1. Will give gentle hydration for 12 hours and recheck the creatine in the morning Qualifiers: Acute renal failure type: unspecified Qualified Code(s): N17.9 - Acute kidney failure, unspecified (6) Severe protein-energy malnutrition Current Visit: Yes Status: Acute Plan: discussed with spouse. she has been getting weaker much than when she was last seen in the office. Only able to take a few steps. Needs assistance to get out of chair. Sometime even requiring an assist belt per her . This is most likely due to essential tremors. Will work on this with Dr. Hu. (7) Chest pain Current Visit: Yes Status: Acute Plan: d/c heparin. Her troponins are trending down. The patient was not worrisome to Dr. Youngblood. Plane for a stress test this morning. 2.24 negative stress test. Qualifiers: Ischemic chest pain type: unstable angina pectoris Discharge Plan: LTAC Plan to discharge in: Greater than 2 days - Code Status/Comfort Care Code Status Assessed: No Physician Review: Patient Assessed, Agree with Above Assessment and Plan Critical Care: No Time Spent Managing PTS Care (In Minutes): 30
[2022-12-13] MEDS: CEFTRIAXONE 1,000 MG in NA CHLORIDE 0.9% 50 ML IVPB SCH ×2 (07:50→21:31)
[2022-12-13] MEDS: PRIMIDONE 50 MG TAB PO SCH ×2 (07:51→21:36)
[2022-12-13] MEDS: ZIPRASIDONE 20 MG CAP PO SCH ×2 (07:51→21:35)
[2022-12-13] MEDS: AMLODIPINE 10 MG TAB PO SCH (07:51)
[2022-12-13] MEDS: chlordiazePOXIDE HCl 25 MG CAP PO SCH ×2 (07:51→21:35)
[2022-12-13] MEDS: PRIMIDONE 250 MG TAB PO SCH ×2 (07:51→21:36)
[2022-12-13] MEDS: LORazepam 2 MG/ML VIAL IV PRN (07:52)
[2022-12-13] MEDS: MULTIVITAMIN TAB PO SCH (08:09)
[2022-12-13] MEDS: THIAMINE HCL 100 MG TABLET PO SCH (08:10)
--- NOTE | 2022-12-13 09:06 | TREADPHA ---
DX: ELEVATED TROPONIN Date of Study: 12/12/2022 Ht: 5' 1 " Wt: 131 lb 0 oz Consulting Physician: CHARI MEDICATIONS: TYLENOL, NORVASC, APRESOLINE, IMODIUM, MORPHINE, ZOFRAN, MYSOLINE, CARAFATE, GEODON HISTORY: 87 YEAR OLD FEMALE, COMPLIANTS OF CHEST PAIN. NO KNOWN HISTORY, NON-SMOKER, HEAVY DRINKER PHYSICIAL EXAMINATION: RESTING B.P.: 125/77 RESTING H.R.: 94 RESTING EKG: NORMAL SINUS RHYTHM PROTOCOL: PHARMACOLOGIC EXERCISE TIME: 3:30 B.P. AT PEAK STRESS: 136/38 IMPRESSION: LEXISCAN INJECED, FOLLOWED BY CARDIOLITE PER PROTOCOL. SEE NUCLEAR MEDICINE REPORT. NO SUPRAVENTRICULAR TACHYCARDIA, VENTRICULAR TACHYCARDIA, PREMATURE ATRIAL COMPLEXES. PATIENT HAS OCCASIONAL PREMATURE VENTRICULAR COMPLEXES THROUGHOUT PROCEDURE. PATIENT UNSTABLE TO COMMUNICATE. PATIENT SHOWING NO SIGNS OR SYMPTOMS OF DISTRESS. ST DEPRESSION IN INFERIOR LEADS WITH LEXISCAN, SUGGESTIVE OF ISCHEMIA.
--- NOTE | 2022-12-13 12:32 | P.PN ---
Date of Service: 12/13/22 spoken with the daughter Dotty Soto and the niece Lauryn Gardiner ([phone]) Patient is a termite renewal inspector alcohol. Has been worsened since her snf. The patient had no symptoms in my office. However according to the family she has been alcoholic for quite some time
[2022-12-13] MEDS: ENSURE ENLIVE 237 ML CAN PO SCH (21:00)
[2022-12-14 06:50] LABS: Absolute Lymphocytes (CBC) 1.5 K/uL (0.7-4.9); Hematocrit 27.8 % (36.0-45.0); Lymphocytes % 19.6 % (15.3-44.8); MCV 97.6 fL (80-100); RBC Red Blood Cell Count 2.85 M/uL (3.86-4.86)
[2022-12-14 06:57] LABS: Albumin 2.7 g/dL (3.4-5.0); Bilirubin Total 0.3 mg/dL (0.2-1.0); Potassium 4.1 mmol/L (3.5-5.1); Protein, Total 6.4 g/dL (6.4-8.2)
[2022-12-14] MEDS: ENSURE ENLIVE 237 ML CAN PO SCH ×3 (09:00→21:00)
[2022-12-14] MEDS: AMLODIPINE 10 MG TAB PO SCH ×2 (09:00→09:48)
[2022-12-14] MEDS: PRIMIDONE 50 MG TAB PO SCH ×3 (09:00→21:00)
[2022-12-14] MEDS: MULTIVITAMIN TAB PO SCH ×2 (09:00→09:50)
[2022-12-14] MEDS: SALMETEROL IH SCH ×2 (09:00→21:00)
[2022-12-14] MEDS: THIAMINE HCL 100 MG TABLET PO SCH ×2 (09:00→09:49)
[2022-12-14] MEDS: TIOTROPIUM BROMIDE 18 MCG IH SCH (09:00)
[2022-12-14] MEDS: chlordiazePOXIDE HCl 25 MG CAP PO SCH ×2 (09:00→09:48)
[2022-12-14] MEDS: FLUTICASONE IH SCH ×2 (09:00→21:00)
[2022-12-14] MEDS: ZIPRASIDONE 20 MG CAP PO SCH ×3 (09:00→21:00)
[2022-12-14] MEDS: DISK DISK IH SCH ×2 (09:00→21:00)
[2022-12-14] MEDS: PRIMIDONE 250 MG TAB PO SCH ×3 (09:00→21:00)
[2022-12-14] MEDS: CEFTRIAXONE 1,000 MG in NA CHLORIDE 0.9% 50 ML IVPB SCH (09:49)
--- NOTE | 2022-12-14 10:34 | P.PN ---
Subjective Date of Service: 12/14/22 Primary Care Provider: Regina Chief Complaint: acute renal failure, uti. Subjective: No new changes, Worsening Review of Systems is unable to be obtained Physical Examination - Vital Signs Temperature: 99.0 F Blood Pressure: 199/82 Pulse: 85 Respirations: 20 Pulse Ox (%): 95 - Physical Exam General: Unresponsive HEENT: Atraumatic, PERRLA, EOMI Neck: Supple, JVD not distended Respiratory: Clear to auscultation bilaterally, Normal air movement Cardiovascular: Regular rate/rhythm, Normal S1 S2 Gastrointestinal: Normal bowel sounds, No tenderness Musculoskeletal: No tenderness Integumentary: No rashes Neurological: Normal speech, Normal tone, Normal affect Lymphatics: No axilla or inguinal lymphadenopathy Assessment And Plan - Current Problems (Diagnosis) (1) Essential tremor Current Visit: Yes Status: Chronic Plan: will increase the primidone She was on 100mg qam and 150 qpm. Will increase to 350qpm just once a day. Will consult Dr. Hu who she sees as an outpatient 12/08 will increase her to 300mg po bid (2) HTN (hypertension) Current Visit: Yes Status: Chronic Plan: Will hold the amlodipine for now. revaluate in the morning 12/08 Will hold the amlodipine today she is doing well. Qualifiers: Hypertension type: primary hypertension Qualified Code(s): I10 - Essential (primary) hypertension (3) UTI (urinary tract infection) Current Visit: Yes Status: Acute Plan: continue ceftriaxone 12/09 MDS e. Coli in the urine culture. Can continue ceftriaxone. Dc on macrobid Qualifiers: Urinary tract infection type: acute cystitis (4) Acute renal failure Current Visit: Yes Status: Acute Plan: Baseline creatine is 1.1. Will give gentle hydration for 12 hours and recheck the creatine in the morning Qualifiers: Acute renal failure type: unspecified Qualified Code(s): N17.9 - Acute kidney failure, unspecified (5) Chest pain Current Visit: Yes Status: Acute Plan: d/c heparin. Her troponins are trending down. The patient was not worrisome to Dr. Youngblood. Regi for a stress test this morning. 2.24 negative stress test. Qualifiers: Ischemic chest pain type: unstable angina pectoris (6) Delirium tremens Current Visit: Yes Status: Acute Plan: Her daughter, niece and Mrs Kuldip Rakel's daughter all confirmed that the patient is an alcoholic. she is non responsive on chloradipaxode. will give her thiamine and d5 1/2 N saline. Will keep on seizure precautions. Will consider a nutrition consult Discharge Plan: LTAC Plan to discharge in: Greater than 2 days - Code Status/Comfort Care Code Status Assessed: No Physician Review: Patient Assessed, Agree with Above Assessment and Plan Critical Care: No Time Spent Managing PTS Care (In Minutes): 25
[2022-12-14] MEDS: HYDRALAZINE HCL 20 MG/ML VIAL IV PRN ×2 (11:51→18:31)
[2022-12-14] MEDS: D5 0.45 NS 1,000 ML IV SCH ×2 (11:54→21:44)
[2022-12-15 07:04] LABS: Absolute Lymphocytes (CBC) 1.4 K/uL (0.7-4.9); Hematocrit 27.2 % (36.0-45.0); Lymphocytes % 20.3 % (15.3-44.8); MCV 97.5 fL (80-100); MPV 8.3 fL (7.6-11.3); RBC Red Blood Cell Count 2.79 M/uL (3.86-4.86)
[2022-12-15] MEDS: D5 0.45 NS 1,000 ML IV SCH ×2 (07:11→17:01)
[2022-12-15 07:19] LABS: Albumin 2.5 g/dL (3.4-5.0); Bilirubin Total 0.2 mg/dL (0.2-1.0); Potassium 3.8 mmol/L (3.5-5.1); Protein, Total 6.2 g/dL (6.4-8.2)
[2022-12-15] MEDS: ENSURE ENLIVE 237 ML CAN PO SCH ×2 (07:39→21:00)
[2022-12-15] MEDS: MULTIVITAMIN TAB PO SCH (07:39)
[2022-12-15] MEDS: DISK DISK IH SCH ×2 (07:40→21:00)
[2022-12-15] MEDS: SALMETEROL IH SCH ×2 (07:40→21:00)
[2022-12-15] MEDS: FLUTICASONE IH SCH ×2 (07:40→21:00)
[2022-12-15] MEDS: PRIMIDONE 50 MG TAB PO SCH ×2 (07:40→21:00)
[2022-12-15] MEDS: ZIPRASIDONE 20 MG CAP PO SCH (07:40)
[2022-12-15] MEDS: PRIMIDONE 250 MG TAB PO SCH ×2 (07:41→21:00)
[2022-12-15] MEDS: AMLODIPINE 10 MG TAB PO SCH (07:41)
[2022-12-15] MEDS: TIOTROPIUM BROMIDE 18 MCG IH SCH (07:41)
[2022-12-15] MEDS: THIAMINE 200 MG/2 ML INJ IVP SCH (08:20)
[2022-12-15] MEDS: HYDRALAZINE HCL 20 MG/ML VIAL IV PRN (08:20)
[2022-12-15] MEDS ORDERED: ZIPRASIDONE MESYLA 20 MG/VIAL IM PRN (09:09)
[2022-12-15] MEDS ORDERED: WATER FOR INJ,STERILE 10 ML IM PRN (09:09)
[2022-12-15] MEDS ORDERED: HYDRALAZINE HCL 20 MG/ML VIAL IV PRN (09:10)
[2022-12-15] MEDS ORDERED: chlordiazePOXIDE HCl 5 MG CAP PO PRN (09:11)
--- NOTE | 2022-12-15 09:15 | P.PN ---
Subjective Date of Service: 12/15/22 Primary Care Provider: Regina Chief Complaint: acute renal failure, uti. Subjective: Worsening (agitated this morning) Review of Systems is unable to be obtained Physical Examination - Vital Signs Temperature: 98.5 F Blood Pressure: 190/62 Pulse: 83 Respirations: 18 Pulse Ox (%): 97 - Physical Exam General: Alert, In no apparent distress HEENT: Atraumatic, PERRLA, EOMI Neck: Supple, JVD not distended Respiratory: Clear to auscultation bilaterally, Normal air movement Cardiovascular: Regular rate/rhythm, Normal S1 S2 Gastrointestinal: Normal bowel sounds, No tenderness Musculoskeletal: No tenderness Integumentary: No rashes Neurological: Normal speech, Normal tone, Normal affect Lymphatics: No axilla or inguinal lymphadenopathy Assessment And Plan - Current Problems (Diagnosis) (1) Delirium tremens Current Visit: Yes Status: Acute Plan: Her daughter, niece and Mrs Kuldip Ellington's daughter all confirmed that the patient is an alcoholic. she is non responsive on chloradipaxode. will give her thiamine and d5 1/2 N saline. Will keep on seizure precautions. Will consider a nutrition consult 12/15 Switch to iv/IM meds. This is not her baseline. Will continue treating for DT's Place a jenkins. We may need to place a ng tube to feed her will consult [facility]. (2) Essential tremor Current Visit: Yes Status: Chronic Plan: will increase the primidone She was on 100mg qam and 150 qpm. Will increase to 350qpm just once a day. Will consult Dr. Hu who she sees as an outpatient 12/08 will increase her to 300mg po bid (3) HTN (hypertension) Current Visit: Yes Status: Chronic Plan: Will hold the amlodipine for now. revaluate in the morning 12/08 Will hold the amlodipine today she is doing well. Qualifiers: Hypertension type: primary hypertension Qualified Code(s): I10 - Essential (primary) hypertension (4) UTI (urinary tract infection) Current Visit: Yes Status: Acute Plan: continue ceftriaxone 12/09 MDS e. Coli in the urine culture. Can continue ceftriaxone. Dc on macrobid Qualifiers: Urinary tract infection type: acute cystitis (5) Acute renal failure Current Visit: Yes Status: Acute Plan: Baseline creatine is 1.1. Will give gentle hydration for 12 hours and recheck the creatine in the morning Qualifiers: Acute renal failure type: unspecified Qualified Code(s): N17.9 - Acute kidney failure, unspecified (6) Chest pain Current Visit: Yes Status: Acute Plan: d/c heparin. Her troponins are trending down. The patient was not worrisome to Dr. Youngblood. Regi for a stress test this morning. 2.24 negative stress test. Qualifiers: Ischemic chest pain type: unstable angina pectoris Discharge Plan: Home Plan to discharge in: 24 Hours - Code Status/Comfort Care Code Status Assessed: No Physician Review: Patient Assessed, Agree with Above Assessment and Plan Critical Care: No Time Spent Managing PTS Care (In Minutes): 30
[2022-12-15] MEDS: LORazepam 2 MG/ML VIAL IV PRN (09:42)
[2022-12-15 10:18] LABS: Specific Gravity 1.016 (1.005-1.030); Urine Bacteria <20 /HPF (<20); Urine Bilirubin NEGATIVE (Negative); Urine Blood Negative (Negative); Urine Clarity Clear (Clear); Urine Color Yellow (Yellow); Urine Glucose NEGATIVE (Negative); Urine Mucus Slight /HPF (None Seen); Urine Protein 1+ (Negative); Urine RBC <5 /HPF (None Seen); Urine Urobilinogen Normal (Normal); Urine pH 5.5 (5.0-7.0)
[2022-12-15] MEDS: chlordiazePOXIDE HCl 25 MG CAP PO SCH (21:00)
[2022-12-16] MEDS: D5 0.45 NS 1,000 ML IV SCH ×2 (03:45→13:45)
[2022-12-16 06:36] LABS: Absolute Lymphocytes (CBC) 1.7 K/uL (0.7-4.9); Hematocrit 28.1 % (36.0-45.0); Lymphocytes % 19.7 % (15.3-44.8); MCV 97.2 fL (80-100); MPV 8.4 fL (7.6-11.3); RBC Red Blood Cell Count 2.89 M/uL (3.86-4.86)
[2022-12-16 06:52] LABS: Albumin 2.5 g/dL (3.4-5.0); Bilirubin Total 0.2 mg/dL (0.2-1.0); Potassium 3.6 mmol/L (3.5-5.1); Protein, Total 6.1 g/dL (6.4-8.2)
--- NOTE | 2022-12-16 07:55 | P.PN ---
Subjective Date of Service: 12/16/22 Primary Care Provider: Regina Chief Complaint: acute renal failure, uti. Subjective: No new changes Review of Systems is unable to be obtained Physical Examination - Vital Signs Temperature: 98.0 F Blood Pressure: 158/60 Pulse: 86 Respirations: 18 Pulse Ox (%): 98 - Physical Exam General: Delirious Assessment And Plan - Current Problems (Diagnosis) (1) Delirium tremens Current Visit: Yes Status: Acute Plan: Her daughter, niece and Mrs Kuldip Ellington's daughter all confirmed that the patient is an alcoholic. she is non responsive on chloradipaxode. will give her thiamine and d5 1/2 N saline. Will keep on seizure precautions. Will consider a nutrition consult 12/16 Patient is still delirious. Continue regular ativan and geodon. Will get a head CT. Will need to place an NG tube and start feeding her based on nutrition consult recommendation. Patient is not moving and is getting edematous. Nursing is repositioning her q4hrs. (2) Essential tremor Current Visit: Yes Status: Chronic Plan: will increase the primidone She was on 100mg qam and 150 qpm. Will increase to 350qpm just once a day. Will consult Dr. Hu who she sees as an outpatient 12/08 will increase her to 300mg po bid (3) HTN (hypertension) Current Visit: Yes Status: Chronic Plan: Will hold the amlodipine for now. revaluate in the morning 12/08 Will hold the amlodipine today she is doing well. Qualifiers: Hypertension type: primary hypertension Qualified Code(s): I10 - Essential (primary) hypertension (4) UTI (urinary tract infection) Current Visit: Yes Status: Acute Plan: continue ceftriaxone 12/09 MDS e. Coli in the urine culture. Can continue ceftriaxone. Dc on macrobid Qualifiers: Urinary tract infection type: acute cystitis (5) Acute renal failure Current Visit: Yes Status: Acute Plan: Baseline creatine is 1.1. Will give gentle hydration for 12 hours and recheck the creatine in the morning Qualifiers: Acute renal failure type: unspecified Qualified Code(s): N17.9 - Acute kidney failure, unspecified (6) Chest pain Current Visit: Yes Status: Acute Plan: d/c heparin. Her troponins are trending down. The patient was not worrisome to Dr. Youngblood. Plane for a stress test this morning. 2.24 negative stress test. Qualifiers: Ischemic chest pain type: unstable angina pectoris Discharge Plan: Home Plan to discharge in: Greater than 2 days - Code Status/Comfort Care Code Status Assessed: No Physician Review: Patient Assessed, Agree with Above Assessment and Plan Critical Care: No Time Spent Managing PTS Care (In Minutes): 30
[2022-12-16] MEDS: LORazepam 2 MG/ML VIAL IV PRN ×2 (08:50→13:49)
[2022-12-16] MEDS: DISK DISK IH SCH ×2 (09:00→21:00)
[2022-12-16] MEDS: THIAMINE 200 MG/2 ML INJ IVP SCH (09:00)
[2022-12-16] MEDS: PRIMIDONE 250 MG TAB PO SCH ×2 (09:00→21:36)
[2022-12-16] MEDS: PRIMIDONE 50 MG TAB PO SCH ×2 (09:00→21:36)
[2022-12-16] MEDS: MULTIVITAMIN TAB PO SCH (09:00)
[2022-12-16] MEDS: AMLODIPINE 10 MG TAB PO SCH (09:00)
[2022-12-16] MEDS: FLUTICASONE IH SCH ×2 (09:00→21:00)
[2022-12-16] MEDS: ENSURE ENLIVE 237 ML CAN PO SCH (09:00)
[2022-12-16] MEDS: TIOTROPIUM BROMIDE 18 MCG IH SCH (09:00)
[2022-12-16] MEDS: SALMETEROL IH SCH ×2 (09:00→21:00)
--- NOTE | 2022-12-16 11:04 | RAD REPORT ---
EXAM DESCRIPTION: CT - Head Brain Wo Cont - 12/16/2022 10:42 am CLINICAL HISTORY: delirium COMPARISON: HEAD BRAIN W O CONTRAST dated 09/23/2011; HEAD BRAIN W O CONTRAST dated 04/05/2008 TECHNIQUE: All CT scans are performed using dose optimization technique as appropriate and may inclu de automated exposure control or mA/KV adjustment according to patient size. FINDINGS: No intracranial hemorrhage, hydrocephalus or extra-axial fluid collection.No areas of brai n edema or evidence of midline shift. Cerebral atrophy. Mild chronic small vessel ischemic changes. The paranasal sinuses and mastoids are clear. The calvarium is intact. IMPRESSION: No acute intracranial abnormality.
--- NOTE | 2022-12-16 15:12 | P.PN ---
Date of Service: 12/16/22 Family meeting at 14:45. However patient is more awake. Nursing was not able to pass the NG tube. However the patient woke up at that time. Has taken a few bites of food. She communicated by squeezing the hands of Mr Ellington and her grandson The daughter wished to know the diagnosis and the treatment plan. (She is obviously very frustrated, from years of the disease) We are treating her for delirium tremens and alcoholism Will try to feed her and PT. transfer to a therapy center when she is stronger Family worried that she may leave before she is ready and start drinking again. This is always the difficulty with alcoholics. Will offer her treatment with antidepressants, naltroxone and referals to councillors and AA. However the patient has to want to treat her own addiction.
[2022-12-17] MEDS: D5 0.45 NS 1,000 ML IV SCH ×3 (00:19→19:54)
[2022-12-17] MEDS: ENSURE ENLIVE 237 ML CAN PO SCH ×3 (00:21→20:11)
[2022-12-17] MEDS ORDERED: ACETAMINOPHEN 500 MG TAB PO PRN (08:06)
[2022-12-17] MEDS ORDERED: LOPERAMIDE HCL 2 MG CAPSULE PO PRN (08:07)
[2022-12-17] MEDS ORDERED: ONDANSETRON 4 MG/2 ML VIAL IV PRN (08:07)
[2022-12-17] MEDS ORDERED: SUCRALFATE 1 GM TABLET PO PRN (08:07)
[2022-12-17] MEDS ORDERED: ZIPRASIDONE MESYLA 20 MG/VIAL IM PRN (08:09)
[2022-12-17] MEDS ORDERED: WATER FOR INJ,STERILE 10 ML IM PRN (08:09)
[2022-12-17] MEDS ORDERED: chlordiazePOXIDE HCl 5 MG CAP PO PRN (08:10)
[2022-12-17 08:24] LABS: Albumin 2.4 g/dL (3.4-5.0); Bilirubin Total 0.2 mg/dL (0.2-1.0); Potassium 3.7 mmol/L (3.5-5.1)
[2022-12-17] MEDS: SALMETEROL IH SCH ×2 (09:00→20:11)
[2022-12-17] MEDS ORDERED: THIAMINE 200 MG/2 ML INJ IVP SCH (09:00)
[2022-12-17] MEDS: DISK DISK IH SCH ×2 (09:00→20:11)
[2022-12-17] MEDS: TIOTROPIUM BROMIDE 18 MCG IH SCH (09:00)
[2022-12-17] MEDS: FLUTICASONE IH SCH ×2 (09:00→20:11)
[2022-12-17] MEDS: MULTIVITAMIN TAB PO SCH (09:21)
[2022-12-17] MEDS: PRIMIDONE 50 MG TAB PO SCH ×2 (09:23→20:10)
[2022-12-17] MEDS: PRIMIDONE 250 MG TAB PO SCH ×2 (09:23→20:10)
[2022-12-17] MEDS: AMLODIPINE 10 MG TAB PO SCH (09:23)
[2022-12-17] MEDS: LORazepam 2 MG/ML VIAL IV PRN (10:10)
--- NOTE | 2022-12-17 14:18 | P.PN ---
Subjective Date of Service: 12/17/22 Primary Care Provider: Regina Chief Complaint: acute renal failure, uti. Subjective: Improving (has been more responsive with nursing and family. Eaten a bit more today) Review of Systems is unable to be obtained Physical Examination - Vital Signs Temperature: 97.6 F Blood Pressure: 126/87 Pulse: 96 Respirations: 18 Pulse Ox (%): 96 - Physical Exam General: Alert, In no apparent distress HEENT: Atraumatic, PERRLA, EOMI Neck: Supple, JVD not distended Respiratory: Clear to auscultation bilaterally, Normal air movement Cardiovascular: Regular rate/rhythm, Normal S1 S2 Gastrointestinal: Normal bowel sounds, No tenderness Musculoskeletal: No tenderness Integumentary: No rashes Neurological: Normal speech, Normal tone, Normal affect Lymphatics: No axilla or inguinal lymphadenopathy Assessment And Plan - Current Problems (Diagnosis) (1) Delirium tremens Current Visit: Yes Status: Acute Plan: Her daughter, niece and Mrs Kuldip Ellington's daughter all confirmed that the patient is an alcoholic. she is non responsive on chloradipaxode. will give her thiamine and d5 1/2 N saline. Will keep on seizure precautions. Will consider a nutrition consult 12/17 Patient seems to be improving. Especially in her interactions with family. H ave spent 20min answering the families questions. (2) Essential tremor Current Visit: Yes Status: Chronic Plan: will increase the primidone She was on 100mg qam and 150 qpm. Will increase to 350qpm just once a day. Will consult Dr. Hu who she sees as an outpatient 12/08 will increase her to 300mg po bid (3) HTN (hypertension) Current Visit: Yes Status: Chronic Plan: Will hold the amlodipine for now. revaluate in the morning 12/08 Will hold the amlodipine today she is doing well. Qualifiers: Hypertension type: primary hypertension Qualified Code(s): I10 - Essential (primary) hypertension (4) UTI (urinary tract infection) Current Visit: Yes Status: Acute Plan: continue ceftriaxone 12/09 MDS e. Coli in the urine culture. Can continue ceftriaxone. Dc on macrobid Qualifiers: Urinary tract infection type: acute cystitis (5) Acute renal failure Current Visit: Yes Status: Acute Plan: Baseline creatine is 1.1. Will give gentle hydration for 12 hours and recheck the creatine in the morning Qualifiers: Acute renal failure type: unspecified Qualified Code(s): N17.9 - Acute kidney failure, unspecified (6) Chest pain Current Visit: Yes Status: Acute Plan: d/c heparin. Her troponins are trending down. The patient was not worrisome to Dr. Youngblood. Regi for a stress test this morning. 2.24 negative stress test. Qualifiers: Ischemic chest pain type: unstable angina pectoris Discharge Plan: Home Plan to discharge in: 24 Hours - Code Status/Comfort Care Code Status Assessed: No Physician Review: Patient Assessed, Agree with Above Assessment and Plan Critical Care: No Time Spent Managing PTS Care (In Minutes): 30
[2022-12-17] MEDS: HYDRALAZINE HCL 20 MG/ML VIAL IV PRN (20:10)
[2022-12-18] MEDS: D5 0.45 NS 1,000 ML IV SCH (05:02)
--- NOTE | 2022-12-18 08:00 | P.PN ---
Subjective Date of Service: 12/18/22 Primary Care Provider: Regina Chief Complaint: acute renal failure, uti. Subjective: Improving (patient is more responsive and eating with nursing and more so with family) Review of Systems is unable to be obtained Physical Examination - Vital Signs Temperature: 98.7 F Blood Pressure: 123/60 Pulse: 92 Respirations: 18 Pulse Ox (%): 95 - Physical Exam General: Alert, In no apparent distress HEENT: Atraumatic, PERRLA, EOMI Neck: Supple, JVD not distended Respiratory: Clear to auscultation bilaterally, Normal air movement Cardiovascular: Regular rate/rhythm, Normal S1 S2 Gastrointestinal: Normal bowel sounds, No tenderness Musculoskeletal: No tenderness Integumentary: No rashes Neurological: Normal speech, Normal tone, Normal affect Lymphatics: No axilla or inguinal lymphadenopathy Assessment And Plan - Current Problems (Diagnosis) (1) Delirium tremens Current Visit: Yes Status: Resolved Plan: Her daughter, niece and Mrs Kuldip Ellington's daughter all confirmed that the patient is an alcoholic. she is non responsive on chloradipaxode. will give her thiamine and d5 1/2 N saline. Will keep on seizure precautions. Will consider a nutrition consult 12/18 Patient is slowly improving. Will work towards snf placement (2) Essential tremor Current Visit: Yes Status: Chronic Plan: will increase the primidone She was on 100mg qam and 150 qpm. Will increase to 350qpm just once a day. Will consult Dr. Hu who she sees as an outpatient 12/08 will increase her to 300mg po bid (3) HTN (hypertension) Current Visit: Yes Status: Chronic Plan: Will hold the amlodipine for now. revaluate in the morning 12/08 Will hold the amlodipine today she is doing well. Qualifiers: Hypertension type: primary hypertension Qualified Code(s): I10 - Essential (primary) hypertension (4) UTI (urinary tract infection) Current Visit: Yes Status: Acute Plan: continue ceftriaxone 12/09 MDS e. Coli in the urine culture. Can continue ceftriaxone. Dc on macrobid Qualifiers: Urinary tract infection type: acute cystitis (5) Acute renal failure Current Visit: Yes Status: Acute Plan: Baseline creatine is 1.1. Will give gentle hydration for 12 hours and recheck the creatine in the morning Qualifiers: Acute renal failure type: unspecified Qualified Code(s): N17.9 - Acute kidney failure, unspecified (6) Chest pain Current Visit: Yes Status: Acute Plan: d/c heparin. Her troponins are trending down. The patient was not worrisome to Dr. Youngblood. Regi for a stress test this morning. 2.24 negative stress test. Qualifiers: Ischemic chest pain type: unstable angina pectoris Discharge Plan: Home Plan to discharge in: 24 Hours - Code Status/Comfort Care Code Status Assessed: No Physician Review: Patient Assessed, Agree with Above Assessment and Plan Critical Care: No Time Spent Managing PTS Care (In Minutes): 25
[2022-12-18] MEDS: SALMETEROL IH SCH ×2 (09:00→20:49)
[2022-12-18] MEDS: DISK DISK IH SCH ×2 (09:00→20:49)
[2022-12-18] MEDS: FLUTICASONE IH SCH ×2 (09:00→20:49)
[2022-12-18] MEDS: TIOTROPIUM BROMIDE 18 MCG IH SCH (09:00)
[2022-12-18] MEDS: AMLODIPINE 10 MG TAB PO SCH (10:00)
[2022-12-18] MEDS: ENSURE ENLIVE 237 ML CAN PO SCH ×2 (10:01→20:49)
[2022-12-18] MEDS: MULTIVITAMIN TAB PO SCH (10:01)
[2022-12-18] MEDS: PRIMIDONE 50 MG TAB PO SCH ×2 (10:02→20:48)
[2022-12-18] MEDS: PRIMIDONE 250 MG TAB PO SCH ×2 (10:02→20:49)
[2022-12-18] MEDS: HYDRALAZINE HCL 20 MG/ML VIAL IV PRN (12:07)
[2022-12-18] MEDS: MORPHINE 4 MG/ML SYR IV PRN ×2 (14:00→15:34)
[2022-12-19] MEDS: AMLODIPINE 10 MG TAB PO SCH (08:39)
[2022-12-19] MEDS: MULTIVITAMIN TAB PO SCH (08:39)
[2022-12-19] MEDS: PRIMIDONE 250 MG TAB PO SCH ×2 (08:40→21:00)
[2022-12-19] MEDS: PRIMIDONE 50 MG TAB PO SCH ×2 (08:40→21:14)
[2022-12-19] MEDS: TIOTROPIUM BROMIDE 18 MCG IH SCH (08:41)
[2022-12-19] MEDS: DISK DISK IH SCH ×2 (08:41→21:00)
[2022-12-19] MEDS: SALMETEROL IH SCH ×2 (08:41→21:00)
[2022-12-19] MEDS: FLUTICASONE IH SCH ×2 (08:41→21:00)
[2022-12-19] MEDS: ENSURE ENLIVE 237 ML CAN PO SCH ×2 (08:42→21:15)
[2022-12-19] MEDS: MORPHINE 4 MG/ML SYR IV PRN (12:14)
--- NOTE | 2022-12-19 12:53 | P.PN ---
Subjective Date of Service: 12/19/22 Primary Care Provider: eRgina Chief Complaint: acute renal failure, uti. Subjective: No new changes Review of Systems 10-point ROS is otherwise unremarkable Physical Examination - Vital Signs Temperature: 98.6 F Blood Pressure: 138/56 Pulse: 74 Respirations: 18 Pulse Ox (%): 97 - Physical Exam General: Alert, In no apparent distress HEENT: Atraumatic, PERRLA, EOMI Neck: Supple, JVD not distended Respiratory: Clear to auscultation bilaterally, Normal air movement Cardiovascular: Regular rate/rhythm, Normal S1 S2 Gastrointestinal: Normal bowel sounds, No tenderness Musculoskeletal: No tenderness Integumentary: No rashes Neurological: Normal speech, Normal tone, Normal affect Lymphatics: No axilla or inguinal lymphadenopathy Assessment And Plan - Current Problems (Diagnosis) (1) Delirium tremens Current Visit: Yes Status: Resolved Plan: Her daughter, niece and Mrs Kuldip Ellington's daughter all confirmed that the patient is an alcoholic. she is non responsive on chloradipaxode. will give her thiamine and d5 1/2 N saline. Will keep on seizure precautions. Will consider a nutrition consult 12/18 Patient is slowly improving. Will work towards snf placement (2) Essential tremor Current Visit: Yes Status: Chronic Plan: will increase the primidone She was on 100mg qam and 150 qpm. Will increase to 350qpm just once a day. Will consult Dr. Hu who she sees as an outpatient 12/08 will increase her to 300mg po bid (3) HTN (hypertension) Current Visit: Yes Status: Chronic Plan: Will hold the amlodipine for now. revaluate in the morning 12/08 Will hold the amlodipine today she is doing well. Qualifiers: Hypertension type: primary hypertension Qualified Code(s): I10 - Essential (primary) hypertension (4) Acute renal failure Current Visit: Yes Status: Acute Plan: Baseline creatine is 1.1. Will give gentle hydration for 12 hours and recheck the creatine in the morning Qualifiers: Acute renal failure type: unspecified Qualified Code(s): N17.9 - Acute kidney failure, unspecified (5) Chest pain Current Visit: Yes Status: Acute Plan: d/c heparin. Her troponins are trending down. The patient was not worrisome to Dr. Youngblood. Plane for a stress test this morning. 2.24 negative stress test. Qualifiers: Ischemic chest pain type: unstable angina pectoris Discharge Plan: Home Plan to discharge in: 24 Hours Physician Review: Patient Assessed, Agree with Above Assessment and Plan Critical Care: No Time Spent Managing PTS Care (In Minutes): 20
[2022-12-19] MEDS: ACETAMINOPHEN 160 MG/5 ML UCUP PO SCH (17:32)
[2022-12-20] MEDS: ACETAMINOPHEN 160 MG/5 ML UCUP PO SCH ×5 (00:21→23:48)
[2022-12-20] MEDS: HYDRALAZINE HCL 20 MG/ML VIAL IV PRN ×2 (00:22→21:46)
[2022-12-20] MEDS: LORazepam 2 MG/ML VIAL IV PRN (02:27)
[2022-12-20] MEDS: FLUTICASONE IH SCH ×2 (07:40→21:00)
[2022-12-20] MEDS: SALMETEROL IH SCH ×2 (07:40→21:00)
[2022-12-20] MEDS: DISK DISK IH SCH ×2 (07:40→21:00)
[2022-12-20] MEDS: TIOTROPIUM BROMIDE 18 MCG IH SCH (07:41)
[2022-12-20] MEDS: AMLODIPINE 10 MG TAB PO SCH (08:28)
[2022-12-20] MEDS: MULTIVITAMIN TAB PO SCH (08:28)
[2022-12-20] MEDS: PRIMIDONE 50 MG TAB PO SCH ×2 (08:29→21:43)
[2022-12-20] MEDS: PRIMIDONE 250 MG TAB PO SCH ×2 (08:29→21:43)
[2022-12-20] MEDS: ENSURE ENLIVE 237 ML CAN PO SCH ×2 (08:30→21:43)
--- NOTE | 2022-12-20 13:19 | P.PN ---
Subjective Date of Service: 12/20/22 Primary Care Provider: Regina Chief Complaint: acute renal failure, uti. Subjective: No new changes Review of Systems 10-point ROS is otherwise unremarkable Physical Examination - Vital Signs Temperature: 98.3 F Blood Pressure: 168/77 Pulse: 84 Respirations: 17 Pulse Ox (%): 93 - Physical Exam General: Alert, In no apparent distress HEENT: Atraumatic, PERRLA, EOMI Neck: Supple, JVD not distended Respiratory: Clear to auscultation bilaterally, Normal air movement Cardiovascular: Regular rate/rhythm, Normal S1 S2 Gastrointestinal: Normal bowel sounds, No tenderness Musculoskeletal: No tenderness Integumentary: No rashes Neurological: Normal speech, Normal tone, Normal affect Lymphatics: No axilla or inguinal lymphadenopathy Assessment And Plan - Current Problems (Diagnosis) (1) Delirium tremens Current Visit: Yes Status: Resolved Plan: Her daughter, niece and Mrs Kuldip Ellington's daughter all confirmed that the patient is an alcoholic. she is non responsive on chloradipaxode. will give her thiamine and d5 1/2 N saline. Will keep on seizure precautions. Will consider a nutrition consult 12/18 Patient is slowly improving. Will work towards snf placement (2) Essential tremor Current Visit: Yes Status: Chronic Plan: will increase the primidone She was on 100mg qam and 150 qpm. Will increase to 350qpm just once a day. Will consult Dr. Hu who she sees as an outpatient 12/08 will increase her to 300mg po bid (3) HTN (hypertension) Current Visit: Yes Status: Chronic Plan: Will hold the amlodipine for now. revaluate in the morning 12/08 Will hold the amlodipine today she is doing well. Qualifiers: Hypertension type: primary hypertension Qualified Code(s): I10 - Essential (primary) hypertension (4) Acute renal failure Current Visit: Yes Status: Acute Plan: Baseline creatine is 1.1. Will give gentle hydration for 12 hours and recheck the creatine in the morning Qualifiers: Acute renal failure type: unspecified Qualified Code(s): N17.9 - Acute kidney failure, unspecified (5) Chest pain Current Visit: Yes Status: Acute Plan: d/c heparin. Her troponins are trending down. The patient was not worrisome to Dr. Youngblood. Plane for a stress test this morning. 2.24 negative stress test. Qualifiers: Ischemic chest pain type: unstable angina pectoris Discharge Plan: Home Plan to discharge in: 24 Hours - Code Status/Comfort Care Code Status Assessed: No Code Status: Full Code Physician Review: Patient Assessed, Agree with Above Assessment and Plan Critical Care: No Time Spent Managing PTS Care (In Minutes): 20
[2022-12-21] MEDS: ACETAMINOPHEN 160 MG/5 ML UCUP PO SCH ×4 (05:08→23:55)
[2022-12-21] MEDS: FLUTICASONE IH SCH ×2 (09:00→21:00)
[2022-12-21] MEDS: TIOTROPIUM BROMIDE 18 MCG IH SCH (09:00)
[2022-12-21] MEDS: ENSURE ENLIVE 237 ML CAN PO SCH ×2 (09:00→21:00)
[2022-12-21] MEDS: SALMETEROL IH SCH ×2 (09:00→21:00)
[2022-12-21] MEDS: DISK DISK IH SCH ×2 (09:00→21:00)
[2022-12-21] MEDS: PRIMIDONE 250 MG TAB PO SCH ×2 (09:00→21:55)
[2022-12-21] MEDS: AMLODIPINE 10 MG TAB PO SCH (09:13)
[2022-12-21] MEDS: PRIMIDONE 50 MG TAB PO SCH ×2 (09:14→21:54)
[2022-12-21] MEDS: MULTIVITAMIN TAB PO SCH (09:14)
--- NOTE | 2022-12-21 15:48 | P.PN ---
Subjective Date of Service: 12/21/22 Primary Care Provider: Regina Chief Complaint: acute renal failure, uti. Subjective: No new changes Review of Systems is unable to be obtained Physical Examination - Vital Signs Temperature: 97.9 F Blood Pressure: 164/62 Pulse: 79 Respirations: 18 Pulse Ox (%): 97 - Physical Exam General: Alert, In no apparent distress HEENT: Atraumatic, PERRLA, EOMI Neck: Supple, JVD not distended Respiratory: Clear to auscultation bilaterally, Normal air movement Cardiovascular: Regular rate/rhythm, Normal S1 S2 Gastrointestinal: Normal bowel sounds, No tenderness Musculoskeletal: No tenderness Integumentary: No rashes Neurological: Normal speech, Normal tone, Normal affect Lymphatics: No axilla or inguinal lymphadenopathy Assessment And Plan - Current Problems (Diagnosis) (1) Delirium tremens Current Visit: Yes Status: Resolved Plan: Her daughter, niece and Mrs Kuldip Ellington's daughter all confirmed that the patient is an alcoholic. she is non responsive on chloradipaxode. will give her thiamine and d5 1/2 N saline. Will keep on seizure precautions. Will consider a nutrition consult 12/18 Patient is slowly improving. Will work towards snf placement (2) Essential tremor Current Visit: Yes Status: Chronic Plan: will increase the primidone She was on 100mg qam and 150 qpm. Will increase to 350qpm just once a day. Will consult Dr. Hu who she sees as an outpatient 12/08 will increase her to 300mg po bid (3) HTN (hypertension) Current Visit: Yes Status: Chronic Plan: Will hold the amlodipine for now. revaluate in the morning 12/08 Will hold the amlodipine today she is doing well. Qualifiers: Hypertension type: primary hypertension Qualified Code(s): I10 - Essential (primary) hypertension (4) Acute renal failure Current Visit: Yes Status: Acute Plan: Baseline creatine is 1.1. Will give gentle hydration for 12 hours and recheck the creatine in the morning Qualifiers: Acute renal failure type: unspecified Qualified Code(s): N17.9 - Acute kidney failure, unspecified (5) Chest pain Current Visit: Yes Status: Acute Plan: d/c heparin. Her troponins are trending down. The patient was not worrisome to Dr. Youngblood. Plane for a stress test this morning. 2.24 negative stress test. Qualifiers: Ischemic chest pain type: unstable angina pectoris Discharge Plan: Home Plan to discharge in: 24 Hours - Code Status/Comfort Care Code Status Assessed: No Physician Review: Patient Assessed, Agree with Above Assessment and Plan Critical Care: No Time Spent Managing PTS Care (In Minutes): 20
[2022-12-21] MEDS: MORPHINE 2 MG/ML SYR IV PRN (16:30)
[2022-12-21] MEDS: LORazepam 2 MG/ML VIAL IV PRN (18:22)
[2022-12-21] MEDS: HYDRALAZINE HCL 20 MG/ML VIAL IV PRN (23:52)
[2022-12-22] MEDS: MORPHINE 2 MG/ML SYR IV PRN ×2 (00:09→09:30)
[2022-12-22] MEDS: LORazepam 2 MG/ML VIAL IV PRN ×2 (01:53→14:35)
[2022-12-22] MEDS: ACETAMINOPHEN 160 MG/5 ML UCUP PO SCH ×3 (06:00→17:02)
[2022-12-22] MEDS: ENSURE ENLIVE 237 ML CAN PO SCH ×2 (09:00→20:41)
[2022-12-22] MEDS: SALMETEROL IH SCH ×2 (09:00→20:41)
[2022-12-22] MEDS: FLUTICASONE IH SCH ×2 (09:00→20:41)
[2022-12-22] MEDS: TIOTROPIUM BROMIDE 18 MCG IH SCH (09:00)
[2022-12-22] MEDS: DISK DISK IH SCH ×2 (09:00→20:41)
[2022-12-22] MEDS: PRIMIDONE 250 MG TAB PO SCH ×3 (09:00→21:00)
[2022-12-22] MEDS: PRIMIDONE 50 MG TAB PO SCH ×3 (09:31→21:00)
[2022-12-22] MEDS: MULTIVITAMIN TAB PO SCH (09:31)
[2022-12-22] MEDS: AMLODIPINE 10 MG TAB PO SCH (09:31)
--- NOTE | 2022-12-22 14:22 | P.PN ---
Subjective Date of Service: 12/22/22 Primary Care Provider: Regina Chief Complaint: acute renal failure, uti. Subjective: No new changes Review of Systems is unable to be obtained Physical Examination - Vital Signs Temperature: 97.5 F Blood Pressure: 194/79 Pulse: 82 Respirations: 14 Pulse Ox (%): 97 - Physical Exam General: Delirious HEENT: Atraumatic, PERRLA, EOMI Neck: Supple, JVD not distended Respiratory: Clear to auscultation bilaterally, Normal air movement Cardiovascular: Regular rate/rhythm, Normal S1 S2 Gastrointestinal: Normal bowel sounds, No tenderness Musculoskeletal: No tenderness Integumentary: No rashes Neurological: Normal speech, Normal tone, Normal affect Lymphatics: No axilla or inguinal lymphadenopathy Assessment And Plan - Current Problems (Diagnosis) (1) Delirium tremens Current Visit: Yes Status: Resolved Plan: Her daughter, niece and Mrs Kuldip Ellington's daughter all confirmed that the patient is an alcoholic. she is non responsive on chloradipaxode. will give her thiamine and d5 1/2 N saline. Will keep on seizure precautions. Will cons ider a nutrition consult 12/22 Patient waxes and wanes. Is only eating a few bites. Will start her on remeron to improve appetite (2) Essential tremor Current Visit: Yes Status: Chronic Plan: will increase the primidone She was on 100mg qam and 150 qpm. Will increase to 350qpm just once a day. Will consult Dr. Hu who she sees as an outpatient 12/08 will increase her to 300mg po bid (3) HTN (hypertension) Current Visit: Yes Status: Chronic Plan: Will hold the amlodipine for now. revaluate in the morning 12/08 Will hold the amlodipine today she is doing well. Qualifiers: Hypertension type: primary hypertension Qualified Code(s): I10 - Essential (primary) hypertension (4) Acute renal failure Current Visit: Yes Status: Acute Plan: Baseline creatine is 1.1. Will give gentle hydration for 12 hours and recheck the creatine in the morning Qualifiers: Acute renal failure type: unspecified Qualified Code(s): N17.9 - Acute kidney failure, unspecified (5) Chest pain Current Visit: Yes Status: Acute Plan: d/c heparin. Her troponins are trending down. The patient was not worrisome to Dr. Raslan. Deluna for a stress test this morning. 2.24 negative stress test. Qualifiers: Ischemic chest pain type: unstable angina pectoris Discharge Plan: [facility] Plan to discharge in: 24 Hours - Code Status/Comfort Care Code Status Assessed: No Physician Review: Patient Assessed, Agree with Above Assessment and Plan Critical Care: No
[2022-12-22] MEDS: HYDRALAZINE HCL 20 MG/ML VIAL IV PRN ×2 (14:35→20:42)
[2022-12-22] MEDS: MIRTAZAPINE 15 MG TAB PO SCH ×2 (20:43→21:00)
[2022-12-23] MEDS: ACETAMINOPHEN 160 MG/5 ML UCUP PO SCH ×4 (06:00→18:00)
--- NOTE | 2022-12-23 08:05 | P.PN ---
Subjective Date of Service: 12/23/22 Primary Care Provider: Regina Chief Complaint: acute renal failure, uti. Subjective: Worsening (decreased oral intake) Review of Systems is unable to be obtained Physical Examination - Vital Signs Temperature: 96.9 F Blood Pressure: 139/63 Pulse: 72 Respirations: 18 Pulse Ox (%): 96 - Physical Exam General: Delirious HEENT: Atraumatic, PERRLA, EOMI Neck: Supple, JVD not distended Respiratory: Clear to auscultation bilaterally, Normal air movement Cardiovascular: Regular rate/rhythm, Normal S1 S2 Gastrointestinal: Normal bowel sounds, No tenderness Musculoskeletal: No tenderness Integumentary: No rashes Neurological: Normal speech, Normal tone, Normal affect Lymphatics: No axilla or inguinal lymphadenopathy Assessment And Plan - Current Problems (Diagnosis) (1) Delirium tremens Current Visit: Yes Status: Resolved Plan: Her daughter, niece and Mrs Kuldip Ellington's daughter all confirmed that the patient is an alcoholic. she is non responsive on chloradipaxode. will give her thiamine and d5 1/2 N saline. Will keep on seizure precautions. Will consider a nutrition consult 12/22 Patient waxes and wanes. Is only eating a few bites. Will start her on remeron to improve appetite (2) Essential tremor Current Visit: Yes Status: Chronic Plan: will increase the primidone She was on 100mg qam and 150 qpm. Will increase to 350qpm just once a day. Will consult Dr. Hu who she sees as an outpatient 12/08 will increase her to 300mg po bid (3) HTN (hypertension) Current Visit: Yes Status: Chronic Plan: Will hold the amlodipine for now. revaluate in the morning 12/08 Will hold the amlodipine today she is doing well. Qualifiers: Hypertension type: primary hypertension Qualified Code(s): I10 - Essential (primary) hypertension (4) Chest pain Current Visit: Yes Status: Acute Plan: d/c heparin. Her troponins are trending down. The patient was not worrisome to Dr. Youngblood. Regi for a stress test this morning. 2.24 negative stress test. Qualifiers: Ischemic chest pain type: unstable angina pectoris (5) End of life care Current Visit: Yes Status: Acute Plan: will need to have a family meeting. Decide between peg tube and hospice Physician Review: Patient Assessed, Agree with Above Assessment and Plan Critical Care: No Time Spent Managing PTS Care (In Minutes): 20
[2022-12-23] MEDS: ENSURE ENLIVE 237 ML CAN PO SCH ×2 (08:08→20:41)
[2022-12-23] MEDS: MULTIVITAMIN TAB PO SCH (08:08)
[2022-12-23] MEDS: DISK DISK IH SCH ×2 (08:09→20:41)
[2022-12-23] MEDS: PRIMIDONE 50 MG TAB PO SCH ×2 (08:09→20:41)
[2022-12-23] MEDS: SALMETEROL IH SCH ×2 (08:09→20:41)
[2022-12-23] MEDS: PRIMIDONE 250 MG TAB PO SCH ×2 (08:09→20:41)
[2022-12-23] MEDS: FLUTICASONE IH SCH ×2 (08:09→20:41)
[2022-12-23] MEDS: AMLODIPINE 10 MG TAB PO SCH (08:10)
[2022-12-23] MEDS: TIOTROPIUM BROMIDE 18 MCG IH SCH (08:10)
--- NOTE | 2022-12-23 14:53 | P.PN ---
Date of Service: 12/23/22 family meeting to discuss [facility] care. They all agree no PEG tube. Decided on hospice. Would like a facility. Agreed to DNR Status
[2022-12-23] MEDS: HYDRALAZINE HCL 20 MG/ML VIAL IV PRN (16:11)
[2022-12-23] MEDS: MORPHINE 2 MG/ML SYR IV PRN ×2 (16:12→20:40)
[2022-12-23] MEDS: MIRTAZAPINE 15 MG TAB PO SCH (20:42)
[2022-12-24] MEDS: MORPHINE 2 MG/ML SYR IV PRN ×2 (00:50→05:59)
[2022-12-24 04:29] VITALS: BP 141/74; TEMP 97.6
[2022-12-24] MEDS: ACETAMINOPHEN 160 MG/5 ML UCUP PO SCH ×2 (06:00)
--- NOTE | 2022-12-24 08:15 | P.PN ---
Subjective Date of Service: 12/24/22 Primary Care Provider: Regina Chief Complaint: acute renal failure, uti. Subjective: No new changes Review of Systems is unable to be obtained Physical Examination - Vital Signs Temperature: 97.6 F Blood Pressure: 141/74 Pulse: 83 Respirations: 17 Pulse Ox (%): 97 - Physical Exam General: Delirious HEENT: Atraumatic, PERRLA, EOMI Neck: Supple, JVD not distended Respiratory: Clear to auscultation bilaterally, Normal air movement Cardiovascular: Regular rate/rhythm, Normal S1 S2 Gastrointestinal: Normal bowel sounds, No tenderness Musculoskeletal: No tenderness Integumentary: No rashes Neurological: Normal speech, Normal tone, Normal affect Lymphatics: No axilla or inguinal lymphadenopathy Assessment And Plan - Current Problems (Diagnosis) (1) End of life care Current Visit: Yes Status: Acute Plan: will need to have a family meeting. Decide between peg tube and hospice 12/24 Possible transfer to inpatient hospice with choice (2) Delirium tremens Current Visit: Yes Status: Resolved Plan: Her daughter, niece and Mrs Kuldip Ellington's daughter all confirmed that the patient is an alcoholic. she is non responsive on chloradipaxode. will give her thiamine and d5 1/2 N saline. Will keep on seizure precautions. Will consider a nutrition consult 12/22 Patient waxes and wanes. Is only eating a few bites. Will start her on remeron to improve appetite (3) Essential tremor Current Visit: Yes Status: Chronic Plan: will increase the primidone She was on 100mg qam and 150 qpm. Will increase to 350qpm just once a day. Will consult Dr. Hu who she sees as an outpatient 12/08 will increase her to 300mg po bid (4) HTN (hypertension) Current Visit: Yes Status: Chronic Plan: Will hold the amlodipine for now. revaluate in the morning 12/08 Will hold the amlodipine today she is doing well. Qualifiers: Hypertension type: primary hypertension Qualified Code(s): I10 - Essential (primary) hypertension (5) Chest pain Current Visit: Yes Status: Acute Plan: d/c heparin. Her troponins are trending down. The patient was not worrisome to Dr. Youngblood. Plane for a stress test this morning. 2.24 negative stress test. Qualifiers: Ischemic chest pain type: unstable angina pectoris Discharge Plan: Other Plan to discharge in: 24 Hours - Code Status/Comfort Care Code Status Assessed: No Physician Review: Patient Assessed, Agree with Above Assessment and Plan Critical Care: No Time Spent Managing PTS Care (In Minutes): 20
[2022-12-24] MEDS: MULTIVITAMIN TAB PO SCH (08:19)
[2022-12-24] MEDS: ENSURE ENLIVE 237 ML CAN PO SCH (08:19)
[2022-12-24] MEDS: SALMETEROL IH SCH (08:19)
[2022-12-24] MEDS: FLUTICASONE IH SCH (08:19)
[2022-12-24] MEDS: PRIMIDONE 50 MG TAB PO SCH (08:19)
[2022-12-24] MEDS: DISK DISK IH SCH (08:19)
[2022-12-24] MEDS: PRIMIDONE 250 MG TAB PO SCH (08:20)
[2022-12-24] MEDS: TIOTROPIUM BROMIDE 18 MCG IH SCH (08:22)
[2022-12-24] MEDS: AMLODIPINE 10 MG TAB PO SCH (08:22)
[2022-12-24 10:20] VITALS: O2SAT 95
== END 2022-12-24 10:50 | disposition hospice, inpatient (51) | DRG 682 ==
LOC: ER 15:24 → ERHOLD 19:20 → OBSVTOIN 19:20 → INTOOBSV 19:20 → 2ND 21:45 → OBSVTOIN 12-09 14:32
PROVIDERS: ADMIT Internal Medicine; ATTEND Internal Medicine
DX: N17.0 Acute kidney failure with tubular necrosis (principal); E43 Unspecified severe protein-calorie malnutrition; G92.8 Other toxic encephalopathy; N30.00 Acute cystitis without hematuria; E87.1 Hypo-osmolality and hyponatremia; I20.0 Unstable angina; F10.231 Alcohol dependence with withdrawal delirium; E03.9 Hypothyroidism, unspecified; E11.9 Type 2 diabetes mellitus without complications; G25.0 Essential tremor; E86.0 Dehydration; E83.51 Hypocalcemia; I10 Essential (primary) hypertension; F03.90 Unspecified dementia, unspecified severity, without behavioral disturbance, psychotic disturbance, mood disturbance, and anxiety; B96.20 Unspecified Escherichia coli [E. coli] as the cause of diseases classified elsewhere; T42.4X5A Adverse effect of benzodiazepines, initial encounter; R77.8 Other specified abnormalities of plasma proteins; R41.0 Disorientation, unspecified; Z66 Do not resuscitate; Z51.5 Encounter for palliative care; Z95.5 Presence of coronary angioplasty implant and graft; Z79.02 Long term (current) use of antithrombotics/antiplatelets; Z68.24 Body mass index [BMI] 24.0-24.9, adult; Z79.899 Other long term (current) drug therapy; Z79.890 Hormone replacement therapy; Z90.710 Acquired absence of both cervix and uterus; Z20.822 Contact with and (suspected) exposure to COVID-19
CPT/HCPCS: 0240U; 36415; 70450; 78452; 80048; 80053; 81001; 81003; 81015; 82607; 82947; 83090; 83605; 83735; 83921; 84484; 85025; 85730; 87040; 87077; 87086; 87088; 87186; 92507; 92523; 92526; 92610; 93005; 93017; 96365; 97110; 97116; 97161; 97165; 97530; 99285; A9500; G0378; J0360; J1644; J1650; J2270; J2785; J3411; J3486; J7030; J7040; J7799

== ENCOUNTER 2022-12-24 11:02 | Inpatient (IN) | payer OTHER ==
--- OUTSIDE RECORDS SUMMARY | 2022-12-24 11:07 | XMS REPORT | Continuity of Care Document ---
:1935 Author Organization [facility] t Address [address] [place] [address] 14[address] [place] [address] Support Name Relationship Address Phone NONE, PER PT OR [address] [place] [address] NONE, PER PT OR Unavailable Rakel Pati Spouse [address] [place] [address] MD [facility] Emergency Provider [address] [place] [address] L [place] [phone] PHYSICIAN, NO Primary Care Physician Unavailable Unavailab etsuardo PATI MELENDEZ Family Member [address] [place] [address] Kathleen Lenrer Unavailable [phone] [address] [place] [address] Kathleen Lerner Unavailable [phone] 67 [place] [address] PATI MELENDEZ OT [address] [phone] [place] [id number] DONALDO CHEN CR [address] [phone] [place] [id number] PATI MELENDEZ OT [address] [place] [phone] DONALDO CHEN CR [address] [phone] [place] [phone] Care Team Providers Name Role Phone Sharpless Primary Care Physician Lena Garcia Attending Clinician Unavailable YADIRA TAVAREZ Attending Clinician Unavailable SARAH BARRIENTOS Attending Clinician Unavailable Dank Garzon Attending Clinician Unavailable GABRIELLE MOISE Attending Clinician Unavailable ANGELA BROTHERS Attending Clinician Unavailable EMBER Attending Clinician Unavailable JASE NICOLE Attending Clinician Unavailable Dank Garzon Admitting Clinician Unavailable GABRIELLE MOISE Admitting Clinician Unavailable EMBER Admitting Clinician Unavailable Payers Payer Name Policy Type Policy Number Effective Date Expiration Date S akshat AETNA MEDICARE [id number] 2020 PPO 00:00:00 AETNA MEDICARE 53 [id number] Common PPO Spirit - [facility] AETNA (MEDICARE [id number] 2014 REPLACEMENT PPO) 00:00:00 MEDICARE B-[place]: [id number] 1998 [employer]OVITAS SOLUTIONS 00:00:00 Problems Condition Condition [...] Sp shira ce urge - CHI urinary [facility] [id number] Diabetic Problem Active Commo n polyneurop Spirit athy - CHI associated [facility] 2 diabetes Medica l mellitus Center [id number] 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 examinatio Medica l n with Center abnormal findings [id number] Hypothyroi Problem Active Com mon dism, Spirit unspecifie - CHI d [facility] [id number] Seasonal Problem Active Comm on allergies [facility] [id number] Essential Problem Active Comm on (primary) Spirit hypertensi - CHI on [facility] [id number] Kidney Problem Active Common disease [facility] [id number] CKD Problem Active Common (chronic Spirit kidney - CHI disease) stage 4[facility] GFR 15-29 Medical ml/min [place] [id number] Closed Problem Active Common nondisplac [facility] ed - [facility] intertroch anteric [facility] fracture Medical of left Center femur, initial encounter [id number] Pain of Problem Active Comm on left hip [facility] joint [facility] [id number] Lumbar Problem Active Common pain [facility] Allergies, Adverse Reactions, Alerts Allergy Allergy Status Severity Reaction(s) Onset Inactive Treating Comm ents Source Name Type Date Date Clinician amoxicil DA Active U UNKNOWN 2021-10 [facility] sienna 2 Clear 00:00: Reyes 00 [facility] Ragweed Propensi Active Seasonal CHI S t ty to -17 Allergies [facility] adverse 00:00: Medical reaction 00 Center s No Known DA Active U [facility] Allergie 07-07 Clear s 00:00: Reyes 00 [facility] Social History Social Habit Start Date Stop Date Quantity Comments Source History of Tobacco Common Spirit - Use [facility] Exposure to Not sure [facility] SARS-CoV-2 (event) Sex Assigned At [birth year] [facility] 00:00:00 00:00:00 Medical Center Smoking Status Start Date Stop Date Source Tobacco smoking consumption [facility] ealt unknown Never Smoker Common [facility] Medications Ordered Filled Start Stop Current Ordering Indication Dosage Frequency Signature Comments Components Source Medication Medication Date Date Medication? Clinician (SIG) Name Name mirabegron Yes Take by [facility] (MYRBETRIQ) 4-26 mouth. [facility] 50 mg Tb24 17:45: Medical 58 Center gabapentin Yes 300mg Q.[id number] Take [address] (NEURONTIN) 4-26 [id number] mg by L ukes 300 MG 17:45: 3D mouth 3 Medical capsule 58 (three) Center times daily. amLODIPine 2017-0 Yes 10mg QD Take [address] (NORVASC) 4-26 by mouth [facility] 10 MG 17:45: nightly. Medical tablet 58 Center glucosamine 2017-0 Yes Take by [facility] -chondroit- 4-26 mouth. [facility] vit C-Mn 17:45: Medical (GLUCOSAMIN 58 Center E CHONDROITIN ) 500-400 mg Cap coenzyme 2017-0 Yes 10mg QD Take [address] Q10 (CO 4-26 by mouth Lukes Q-10) 10 mg 17:45: daily. Medi martinez capsule 58 Center DOCOSAHEXAN 2017-0 Yes Take by [facility] OIC 4-26 mouth. [facility]ukes ACID/EPA 17:45: Medical (FISH OIL 58 Center ORAL) VITS 2017-0 Yes Take by [facility] A,C,E/LUTEI -26 mouth. [facility]ukes N/ZEAX/ZN/C 17:45: Medica l OPP (EYE 58 Center HEALTH FORMULA ORAL) LEVOTHYROXI 2017-0 Yes 125ug QD Take [address] SODIUM 4-26 mcg by Lukes (LEVOTHYROX 17:45: mouth Medic al INE ORAL) 58 daily . [place] losartan 2017-0 Yes 25mg QD Take [address] (COZAAR) 25 4-26 by mouth Luke s MG tablet 17:45: daily. Medica l Center LEVOCETIRIZ 2017-0 Yes 5mg QD Take [address] INE 4-26 by mouth Lukes DIHYDROCHLO 17:45: daily. [facility] RIDE 58 Center (LEVOCETIRI ZINE ORAL) metoprolol 2017-0 Yes 25mg QD Take [address] (TOPROL-XL) 4-26 by mouth Luke s 25 MG 24 hr 17:45: daily. [facility] tablet 58 Center gabapentin 2017-0 Yes 300mg Q.[id number] Take [address] (NEURONTIN) 4-26 [id number] mg by L ukes 300 MG 17:45: 3D mouth 3 Medical capsule 58 (three) Center times daily. amLODIPine 2017-0 Yes 10mg QD Take [address] (NORVASC) 4-26 by mouth [facility]ukes 10 MG 17:45: nightly. Medical tablet 58 Center glucosamine 2017-0 Yes Take by [facility] -chondroit- 4-26 mouth. [facility]ukes vit C-Mn 17:45: Medical (GLUCOSAMIN 58 Center E CHONDROITIN ) 500-400 mg Cap coenzyme 2017-0 Yes 10mg QD Take [address] Q10 (CO - by mouth Lukes Q-10) 10 mg 17:45: daily. [facility] capsule 58 Center DOCOSAHEXAN 2017-0 Yes Take by [facility] OIC - mouth. [facility]ukes ACID/EPA 17:45: Medical (FISH OIL 58 Center ORAL) VITS 2017-0 Yes Take by [facility] A,C,E/LUTEI - mouth. [facility]ukes N/ZEAX/ZN/C 17:45: Medica l OPP (EYE 58 Center HEALTH FORMULA ORAL) LEVOTHYROXI 2017-0 Yes 125ug QD Take [address] SODIUM 4-26 mcg by Lukes (LEVOTHYROX 17:45: mouth Medic al INE ORAL) 58 daily . [place] losartan 2017-0 Yes 25mg QD Take [address] (COZAAR) 25 - by mouth Luke s MG tablet 17:45: daily. Medica l [address] [place] [address] LEVOCETIRIZ 2017- Yes 5mg QD Take [address] INE -26 by mouth Lukes DIHYDROCHLO 17:45: daily. [facility] RIDE [address] [place] [address] (LEVOCETIRI ZINE ORAL) metoprolol 2017- Yes 25mg QD Take [address] (TOPROL-XL) - by mouth Luke s 25 MG 24 hr 17:45: daily. [facility] tablet [address] [place] [address] mirabegron Yes Take by [facility] (MYRBETRIQ) 4- mouth. [facility]ukes 50 mg Tb24 17:45: [address] gabapentin 2017-0 Yes 300mg Q.[id number] Take [address] (NEURONTIN) 4-26 [id number] mg by L ukes 300 MG 17:45: 3D mouth 3 Medical capsule 58 (three) Center times daily. amLODIPine 2017-0 Yes 10mg QD Take [address] (NORVASC) - by mouth Lukes 10 MG 17:45: nightly. Medical tablet [address] [place] [address] glucosamine 0 Yes Take by [facility] -chondroit- - mouth. [facility]ukes vit C-Mn 17:45: Medical (GLUCOSAMIN Center E CHONDROITIN ) 500-400 mg Cap coenzyme 2017- Yes 10mg QD Take [address] Q10 (CO 4-26 by mouth Lukes Q-10) 10 mg 17:45: daily. [facility] martinez capsule 58 Center DOCOSAHEXAN Yes Take by [facility] OIC 4-26 mouth. [facility]ukes ACID/EPA 17:45: Medical (FISH OIL 58 Center ORAL) VITS 2016- Yes Take by [facility] A,C,E/LUTEI 4-26 mouth. [facility]ukes N/ZEAX/ZN/C 17:45: Medica l OPP (EYE 58 Center HEALTH FORMULA ORAL) LEVOTHYROXI 2016- Yes 125ug QD Take [address] SODIUM 4-26 mcg by Lukes (LEVOTHYROX 17:45: mouth Medic al INE ORAL) 58 daily . Center losartan Yes 25mg QD Take [address] (COZAAR) 25 4-26 by mouth Luke s MG tablet 17:45: daily. Medica l Center LEVOCETIRIZ 2017 Yes 5mg QD Take [address] INE 4-26 by mouth Lukes DIHYDROCHLO 17:45: daily. [facility] martinez RIDE 58 Center (LEVOCETIRI ZINE ORAL) metoprolol Yes 25mg QD Take [address] (TOPROL-XL) 4-26 by mouth Luke s 25 MG 24 hr 17:45: daily. [facility] tablet 58 Center mirabegron Yes Take by [facility] (MYRBETRIQ) 4-26 mouth. [facility]ukes 50 mg Tb24 17:45: Medical [address] [place] [address] Myrbetriq Myrbetriq Yes Lena 1 tablet Common [place] [facility] Glucosamine Glucosamine Yes Lena 1 capsule Common Chondr Chondr [place] with a Spirit Complex Complex meal [facility] Losartan Losartan Yes Lena 1 tablet C ommon Potassium Potassium [place] Spir it [facility] Xyzal Xyzal Yes Lena 1 tablet Common [place] in the Spirit evening [facility] Oxybutynin Oxybutynin Yes Lena as C ommon Chloride Chloride [place] directed Sp shira [facility] Multivitami Multivitami Yes Lena as Common n Women 50+ n Women 50+ [place] directed [facility] CoQ-10 CoQ-10 Yes Lena 1 capsule Comm on [place] with a Spirit meal [facility] Amlodipine Amlodipine Yes Lena 1 tablet Common Besylate Besylate [facility] Spirit [facility] Gabapentin Gabapentin Yes Lena 1 capsule Common [place] [facility] Levothyroxi Levothyroxi Yes Lena 1 tablet Common ne Sodium ne Sodium [place] on an Spi rit empty - CHI stomach in [facility] Lasix Lasix Yes Lena 1 tablet Common [place] [facility] Fish Oil Fish Oil Yes Lena 1 capsule Common [place] [facility] CoQ-10 30 CoQ-10 30 No 1{capsu QD [...] 50 MG 50 MG Toviaz Toviaz No Toviaz Lasix 20 MG Lasix 20 MG No [...] QD Xyzal 5 MG t_in_ e_eveni ng} Gabapentin Gabapentin No 1{capsu QD [...] 2 % da ointment ointment topical Epis [employer] ointment al [facility] Myrbetriq [...] Name zoster recombinant zoster recombinant 2019-08-30 Completed [place] 00:00:00 [facility] influenza, influenza, 2019-07-01 Completed [place] injectable, injectable, 00:00:00 [facility] quadrivalent quadrivalent Outreach P rogram Vital Signs Vital Name Observation Time Observation Value Comments Source height 2022-03-11 14:00:00 63 [in_i] Common S pirit - CHI [facility] weight 2022-03-11 14:00:00 130 [lb_av] Common S pirit - [facility] bmi 2022-03-11 14:00:00 23.03 kg/m2 Common S pirit [facility] blood pressure 2022-03-11 14:00:00 138 mm[Hg] Common [facility] - [facility] systolic [facility] blood pressure 2022-03-11 14:00:00 82 mm[Hg] Common [facility] - [facility] diastolic [facility] BP Diastolic 2020-04-15 00:00:00 76 mm[Hg] [place] [facility] Height 2020-04-15 00:00:00 61 [in_i] [place] [facility] BMI (Body Mass 2020-04-15 00:00:00 24.5 kg/m2 [place] [employer] [facility] BP Systolic 2020-04-15 00:00:00 180 mm[Hg] [place] [facility] Body Weight 2020-04-15 00:00:00 2075.2 [oz_av] [employer] [employer] [facility] Procedures Procedure Date / Time Performing Clinician Source Performed Total Hysterectomy 1970-10-20 00:00:00 [place] [facility] Encounters Start End Encounter Admission Attending Care Care Encounter Source Date/Time Date/Time Type Type Clinicians Facility Department ID 2022-08-09 Outpatient [facility] [id number] [place] 02:59:42 [id number] [facility] 2022-08-08 Outpatient [facility] [id number] [place] 12:10:41 [id number] [facility] 2022-08-05 Outpatient [facility] [id number] [place] 15:59:29 [id number] [facility] 2022-03-12 Outpatient STLC STLC [id number] Common 08:30:00 [facility] 2022-03-11 Outpatient STLMLC STLC [id number] Common 14:32:06 [facility] 2022-03-01 Outpatient Jose, STRUBIOLC STLC [id number] Common 08:45:01 Lena [facility] 2022-02-25 Outpatient Jose STLC STLMLC [id number] Common 08:45:02 Lena [facility] 2022-02-20 Outpatient Jose, STLMLC STLMLC [id number] Common 11:10:00 Lena [facility] 2021-12-10 Outpatient CORBY, [facility] [id number] [place] 01:03:49 [facility] 2021-11-14 Outpatient Mitchel, STLMLC STLMLC [id number] Common 10:59:23 Lena 90544 [facility] 2021-10-15 Outpatient [facility] [id number] [place] 15:36:41 [facility] 2021-09-17 Outpatient BARRIENTOS, [facility] [id number] [place] 12:59:16 [facility] 2022-09-28 2022-10-18 Inpatient EM Ryann, HCACL MEDI.01 [id number] [facility] 19:05:00 17:39:[address] 2022-08-04 2022-08-15 Inpatient E JOSE MARIA, [facility] [id number] [facility] 04:14:00 23:00:00 GABRIELLE 2022-08-05 2022-08-05 Outpatient ZEV, [facility] [id number] [place] 12:30:00 12:30:00 [facility] 2022-03-12 2022-03-12 (TEL) STLMLC STLMLC [id number] Co mmon 00:00:00 00:00:00 [facility] 2022-03-11 2022-03-11 OFFICE STLMLC STLMLC [id number] Co mmon 00:00:00 00:00:00 VISIT NEW Spir it PT LEVEL 3 [facility] 2022-02-26 2022-02-26 (TEL) STLMLC STLMLC [id number] Co mmon 00:00:00 00:00:00 [facility] 2022-02-26 2022-02-26 (TEL) STLMLC STLMLC [id number] Co mmon 00:00:00 00:00:00 [facility] 2022-02-25 2022-02-25 (TEL) STLMLC STLMLC [id number] Co mmon 00:00:00 00:00:00 [facility] 2021-10-22 2021-10-22 Office NAIMA Barrientos [id number] [place] 13:30:00 14:18:39 Visit Sarah MCNEAL [id number] Health [id number] 2021-10-01 2021-10-01 Office NAIMA Barrientos [id number] [place] 12:45:00 12:54:18 Visit Sarah MCNEAL [id number] Health [id number] 2020-04-24 2020-04-24 Outpatient CHANEL_TOBY [facility] [id number] [place] 01:02:00 01:02:[place] [id number] [facility] 2020-04-17 2020-04-17 Outpatient CHANEL_TOBY [facility] [id number] [place] 08:17:00 08:17:[place] [id number] [facility] 2020-04-15 2020-04-15 Outpatient CHANEL_TOBY [facility] 109 [id number] [place] 12:03:00 12:03[place] [id number] [facility] 2020-04-15 2020-04-15 Chika SDROXANNE [place] - [id number] M atagor 00:00:00 00:00:00 Aiden Zepeda, [facility] [employer] [facility] RADIO TECHNICIAN: 1700 [facility] [id number] Kg ulloa , Ph. 2019-10-28 2019-10-28 Outpatient Bryon Loaiza [id number] Common 13:20:00 13:20:00 [facility] it [facility] 2019-08-16 2019-08-16 Outpatient Bryon Loaiza [id number] Common 11:01:00 11:01:[address] [facility] 2019-08-10 2019-08-10 [facility] [id number] Common 10:00:00 10:00:[address] Sp[address] [facility] 2019-08-02 2019-08-02 Out[facility] [id number] Common 09:50:00 09:50:[address] [facility] 2019-07-27 2019-07-27 Out[facility] [id number] Common 11:30:00 11:30:[address] Sp[address] [facility] 2019-07-19 2019-07-19 Outpatient [facility] [id number] Common 07:59:00 07:59:[address] [facility] 2019-06-23 2019-06-23 Outpatient [facility] [id number] Common 08:55:00 08:55:[address] [facility] 2019-05-28 2019-05-28 Outpatient [facility] [id number] Common 09:50:00 09:50:[address] [facility] 2019-01-25 2019-01-25 Outpatient [facility] [id number] Common 13:00:00 13:00:[address] [facility] 2019-01-20 2019-01-20 Out[facility] [id number] Common 09:14:00 09:14:[address] [facility] 2019-01-05 2019-01-05 Out[facility] [id number] Common 11:23:00 11:23:[address] [facility] 2018-11-26 2018-11-26 Outpatient [facility] [id number] Common 10:03:00 10:03:[address] [facility] 2018-08-11 2018-08-11 Outpatient Bryon Loaiza [id number] Common 14:59:00 14:59:00 [facility] Spir it Road [facility] 2018-07-27 2018-07-27 Outpatient Bryon Slatert [id number] Common 13:15:00 13:15:00 [facility] Spir it Road [facility] 2018-06-15 2018-06-15 Outpatient Bryon Slatert [id number] Common 14:00:00 14:00:00 [facility] Spir it Road [facility] Results Test Description Test Time Test Comments [...] the recommended formula for GFRby the National dney Foundation for Adults.The GFR will not calculate if th e sex is unknown or if thepatien t's age is <18 years. CREATININE (test code = CREAT) 1.2 mg/dL 0.6-1.3 N CALCIUM (test code = CA) 11.2 mg/dL 8.0-10.5 H CBC W/AUTO [id number] 07:34:00 Test Item Value Reference Range Interpretation [...] (test code NO = MDIFF) BASIC METABOLIC [id number] 08:25:00 Test Item Value Reference Range Interpretation [...] the recommended for linda for GFRby the Natformerly [facility] Kidney Foundati on for Adults.The GFR will not calculate if th e sex is unknown or if thepatient's ag e is <18 years. CREATININE (test 1.3 mg/dL 0.6-1.3 N code = CREAT) CALCIUM (test code = 10.5 mg/dL 8.0-10.5 N CA) CBC W/AUTO [id number] 07:15:00 Test Item Value Reference Range Interpretation [...] (test code NO = MDIFF) BASIC METABOLIC [id number] 08:01:00 Test Item Value Reference Range Interpretation [...] the recommended for linda for GFRby the [facility] Kidney Foundati on for Adults.The GFR will not calculate if th e sex is unknown or if thepatient's ag e is <18 years. CREATININE (test 1.3 mg/dL 0.6-1.3 N code = CREAT) CALCIUM (test code = 10.7 mg/dL 8.0-10.5 H CA) CBC W/AUTO [id number] 07:57:00 Test Item Value Reference Range Interpretation [...] (test code NO = MDIFF) BASIC METABOLIC [id number] 08:06:00 Test Item Value Reference Range Interpretation [...] the recommended for linda for GFRby the [facility] Kidney Foundati on for Adults.The GFR will not calculate if th e sex is unknown or if thepatient's ag e is <18 years. CREATININE (test 1.1 mg/dL 0.6-1.3 N code = CREAT) CALCIUM (test code = 10.4 mg/dL 8.0-10.5 N CA) CBC W/AUTO [id number] 07:30:00 Test Item Value Reference Range Interpretation [...] DIFF REQUIRED (test code NO = MDIFF) [id number] 12:09:00 Test Item Value Reference Range Interpretation Comments PHENOBARBITAL (test code 7 ug/mL 15-40 A De tection Limit = = PHENO) 3Performed At: [facility] [address] [place], [place] [id number] ra Alicia DENNIS Ph:[phone] PRIMIDONE (test code = 7.1 ug/mL 5.0-12.0 Dete ction Limit = PRIM) 0.3 <0.3 indica kirsty None Detected [id number] 12:09:00 Test Item Value Reference Range Interpretation Comments PHENOBARBITAL (test code 7.0 ug/mL 15-40 L D etection Limit = = PHENOB) 3Performed At: [facility] [address] [id number] Derrell Maher MD Ph:[phone] CBC W/AUTO [id number] 08:01:00 Test Item Value Reference Range Interpretation [...] (test code NO = MDIFF) BASIC METABOLIC [id number] 07:54:00 Test Item Value Reference Range Interpretation [...] 9.9 mg/dL 8.0-10.5 N CA) CBC W/AUTO [id number] 07:29:00 Test Item Value Reference Range Interpretation [...] (test code NO = MDIFF) BASIC METABOLIC [id number] 07:28:00 Test Item Value Reference Range Interpretation [...] the recommended for linda for GFRby the [facility] Kidney Foundati on for Adults.The GFR will not calculate if th e sex is unknown or if thepatient's ag e is <18 years. CREATININE (test 1.6 mg/dL 0.6-1.3 H code = CREAT) CALCIUM (test code = 9.7 mg/dL 8.0-10.5 N CA) CBC W/AUTO [id number] 11:48:00 Test Item Value Reference Range Interpretation [...] REQUIRED (test code NO = MDIFF) RBC [id number] 11:48:00 Test Item Value Reference Range Interpretation Comments ANISOCYTOSIS (test code = ANISO) 2+ MACROCYTOSIS (test code = MACR) 2+ BASIC METABOLIC [id number] 09:42:00 Test Item Value Reference Range Interpretation [...] the recommended for linda for GFRby the [facility] Kidney Foundati on for Adults.The GFR will not calculate if th e sex is unknown or if thepatient's ag e is <18 years. CREATININE (test 1.3 mg/dL 0.6-1.3 N code = CREAT) CALCIUM (test code = 10.0 mg/dL 8.0-10.5 N CA) [id number] 10:14:00 Test Item Value Reference Range Interpretation Comments HGBA1C% (test code = HGBA1C%) 4.7 %A1C 4.8-6.0 L VITAMIN [id number] 07:47:00 Test Item Value Reference Range Interpretation Comments VITAMIN B12 (test code = VITB12) 167 pg/mL 193-986 L Indication for Test: Malabsorption/MalnutritioFOLIC [id number] 07:47:00 Test Item Value Reference Range Interpretation Comments FOLIC ACID (test code = FOL) 17.7 ng/mL 3.1-17.5 H Indication for Test: Malabsorption/MalnutritioVITAMIN D [id number] 07:47:00 Test Item Value Reference Range Interpretation Comments VITAMIN D 25-HYDROXY 12.1 ng/mL 30-100 L SPECIME N SLIGHTLY (test code = VITD25) HEMOLYZ ED.Results known to be adversely affected by hem olysis are: Potassium Magnesium LDH Phosphorus Indication for Test: Malabsorption/MalnutritioHEPATIC FUNCTION [id number] 16:53:00 Test Item Value Reference Range Interpretation [...] Units/L 34-145 L CK) TSH REFLEX TO [id number] 16:53:00 Test Item Value Reference Range Interpretation Comments TSH REFLEX TO FT4 (test code = 1.00 IU/mL 0.42-5.47 N TSHREFLEX) TROP-I HIGH [id number] 16:53:00 Test Item Value Reference Range Interpretation [...] These resu lts were obtained using [employer] IM TnI Hreagent. Results from di fferent methodologies s hould not becompared to o ne another as quantitative results and URLs mayvary by method. BASIC METABOLIC [id number] 16:53:00 Test Item Value Reference Range Interpretation [...] the recommended for linda for GFRby the [facility] for Adults.The GFR will not calculate if th e sex is unknown or if thepatient's ag e is <18 years. CREATININE (test 1.1 mg/dL 0.6-1.3 N code = CREAT) CALCIUM (test code = 10.5 mg/dL 8.0-10.5 N CA) [id number] 16:34:00 Test Item Value Reference Range Interpretation Comments AMMONIA (test code = AMM) 26 umol/L 11-35 N LACTIC [id number] 16:28:00 Test Item Value Reference Range Interpretation Comments LACTIC ACID (test code = LACT) 0.9 mmol/L 0.4-1.9 N UA RFLX MICR CULT IF [id number] 16:16:00 Test Item Value Reference Range Interpretation [...] RiskForSepsis-no oth srcSpecimen Description: CLEAN CATCHCBC W/AUTO [id number] 15:47:00 Test Item Value Reference Range Interpretation [...] NO = MDIFF) - XR CHEST 1 [id number] 00:00:00 [facility] : 1935 Sex: F FAX: Roger Wasserman [place]: St: REG Name: KATHLEEN LERNER [facility] : 1935 Age/S: 87/F [address] [place], [place] [address] Unit #: [id number] Loc: [place] [address] Phys: Roger Zee MD Acct: [id number] Dis Date: Status: REG ER PHONE #: [phone] Exam Date: 09/27/2022 1612 FAX #: [phone] Reason:Altered Mental Status EXAMS: CPT CODE: [id number] XR CHEST 1 V 54509 PROCEDURE INFORMATION: Exam: XR Chest Exam date [...] 1. Cardiomegaly. 2. No focal consolidation. at 1657 Reported and signed by: Vikas Hernandez M.D. CC: Roger Zee MD Technologist: RT Kemar(Mukesh) Trnscrd Date/Time/By: 09/27/2022 (1656) : By: [email or web address] Orig Print D/T: S: 09/27/2022 (1656) PAGE 1 Signed Report- CT HEAD/BRAIN W/O [id number] 00:00:00 [facility] : 1935 Sex: F Name:KATHLEEN LERNER [facility] : 1935 Age/S: 87 / F [address] [place] [address] Unit #: [id number] Loc: [place] [address] Phys: Roger Zee MD Acct: [id number] Dis Date: Status: REG ER PHONE #: [phone] Exam Date: 09/27/2022 1621 FAX #: [phone] Reason: Altered Mental Status EXAMS: CPT CODE: [id number] CT HEAD/BRAIN W/O CONT 50519 PROCEDURE INFORMATION: Exam: CT Head Without Contrast [...] (1754) t.[id number].CK10 Orig Print D/T: S: 09/27/2022 (287)PAGE 1 Signed Report- XR HIP ELYSIA W/PELVIS 2-3 [id number] 00:00:00 [facility] : 1935 Sex: F FAX: Roger Wasserman [place]: St: REG Name: KATHLEEN LERNER [facility] : 1935 Age/S: 87/F [address] [place] [address] Unit #: [id number] Loc: [place] [address] Phys: Roger Zee MD Acct: [id number] Date: Status: REG ER PHONE #: [phone] Exam Date: 09/27/2022 1645 FAX #: [phone] Reason: fall, prior hip fxs s/p ORIF EXAMS: CPT CODE: [id number] XR HIP ELYSIA W/PELVIS 2-3 VIEWS 94170 PROCEDURE INFORMATION: Exam: XR Bilateral Hips Exam [...] either hip or pelvis. There is no periprosthetic fracture. The pelvic ring is intact. Postoperative change involving the left hip. There is a dynamic hip screw and [...] hip prosthesis in good position without evidence ofcomponent fracture or loosening or prosthetic dislocation. 3. Postoperative change involving the left hip. There is a dynamic hip screw and short intramedullary ranjeet. The hardware appears to be in good position. 4. Osteopenia. 5. Postoperative change involving the lower lumbosacral spine at L4- L5. at 1814 Reported and signed by: Neto Benavidez M.D. PAGE 1 Signed Report (CONTINUED) FAX: Roger Zee [place]: St: REG--- Name: KATHLEEN LERNER [facility] : 1935 Age/S: 87/F [address] [place] [address] Unit #: [id number] Loc: [place] [address] Phys: Roger Zee MD Acct: [id number] Dis Date: Status: REG ER PHONE #: [phone] Exam Date: 09/27/2022 1645 FAX #: [phone] Reason: fall, prior hip fxs s/p ORIF EXAMS: CPTCODE: [id number] XR HIP ELYSIA W/PELVIS 2-3 VIEWS 27004 (Continued) CC: Roger Zee MD Technologist: LONA ReinosoR) Megan Date/Time/By: 09/27/2022 (1814) : By: [email or web address] Orig Print D/T: S: 09/27/2022 (1815) PAGE 2 Signed ReportURINE [id number] 13:44:00 Test Item Value Reference Range Interpretation [...] code = 355) 21 meq/L 22-29 L [id number] 11:53:00 Test Item Value Reference Range Interpretation Comments GLUCOSE RANDOM (BEAKER) (test code = 97 mg/dL 70-105 652) Effective 09/06/2014: Reference Range Change-Adult onlyNew: 70-105 Previous: 70-110BUN AND [id number] 11:53:00 Test Item Value Reference Range Interpretation Comments BLOOD UREA NITROGEN 24 mg/dL 7-21 H (BEAKER) (test code = 354) CREATININE (BEAKER) 1.31 mg/dL 0.57-1.25 H (test code = 358) EGFR (BEAKER) (test 39 mL/min/1.73 ESTIMA LARUEN GFR IS code = 1092) sq m NOT ACCURATE CREATININE CLEARANCE IN PREDICTING GLOMERULAR FILTRATION RATE . ESTIMATED GFR I S NOT APPLICABLE FOR DIALYSIS PATIEN TS. URINALYSIS W/ [id number] 11:34:00 Test Item Value Reference Range Interpretation [...] SOURCE(BEAKER) (test code = 2795) HEMOGLOBIN AND [id number] 11:30:00 Test Item Value Reference Range Interpretation Comments HEMOGLOBIN (BEAKER) (test code = 13.5 GM/DL 12.0-15.0 410) HEMATOCRIT (BEAKER) (test code = 39.6 % 36.0-45.0 411)
[2022-12-24] MEDS ORDERED: LORazepam 2 MG/ML VIAL IV PRN (11:15)
[2022-12-24] MEDS ORDERED: MORPHINE 2 MG/ML SYR IV PRN (11:16)
[2022-12-24] MEDS ORDERED: ONDANSETRON 4 MG/2 ML VIAL IV PRN (11:18)
[2022-12-24] MEDS ORDERED: BISACODYL 10 MG RECTAL SUPP PR PRN (11:19)
[2022-12-24] MEDS ORDERED: ACETAMINOPHEN 650MG/RECT SUPP PR PRN (11:19)
[2022-12-24 12:10] VITALS: BMI 24.7
[2022-12-24] MEDS: SCOPOLAMINE HYDROBROMIDE PATCH TD SCH (12:16)
[2022-12-24] MEDS: LORazepam 2 MG/ML VIAL IV SCH ×3 (12:16→22:10)
[2022-12-25] MEDS: LORazepam 2 MG/ML VIAL IV SCH ×6 (01:15→21:54)
--- NOTE | 2022-12-25 08:58 | P.DS ---
Admission Date: 12/07/22 Discharge Date: 12/24/22 Disposition: HOSPICE-MEDICAL FACILITY Discharge Condition: FAIR Brief History of Present Illness: Patient was admitted for uti and deliriums. She has a history of essential tremors which were difficulty to control The patient has been having difficulty with this for the last 6 months. There has been a decline in her quality of life Hospital Course: Patient was admitted for delirious. During the stay her derlium became worse. The patient family showed up and stated the patient has been an alcoholic for several decades. I had never known this as her primary care. She continued to decline. The family and Mr Kuldip Ellington decided for hospice as the patient is no longer eating. She has been accepted into hospice. Thank you for allowing me take part in the patients care. General: Delirious HEENT: Atraumatic, PERRLA, EOMI Neck: Supple, JVD not distended Respiratory: Clear to auscultation bilaterally, Normal air movement Cardiovascular: Regular rate/rhythm, Normal S1 S2 Gastrointestinal: Normal bowel sounds, No tenderness Musculoskeletal: No tenderness Integumentary: No rashes Neurological: Normal speech, Normal tone, Normal affect Lymphatics: No axilla or inguinal lymphadenopathy Home Medications: Amlodipine Besylate [Norvasc] 10 mg PO DAILY 07/11/15 Clopidogrel Bisulfate [Plavix*] 1 tab PO DAILY 12/07/22 Furosemide 40 mg PO DAILY 12/07/22 Gabapentin 300 mg PO DAILY 12/07/22 Levothyroxine Sodium [Levothyroxine] 125 mcg PO DAILY 12/07/22 Mirabegron [Myrbetriq] 25 mg PO DAILY 12/07/22 Montelukast Sodium 10 mg PO DAILY 12/07/22 Primidone 2 tab PO BID 12/07/22 Propranolol [Inderal] 30 mg PO BID 12/07/22 Valsartan 320 mg PO DAILY 12/07/22 Activity: Fall precautions Physician Review: Patient Assessed, Agree with Above Assessment and Plan Time spent managing pt's care (in minutes): 40
[2022-12-26] MEDS: LORazepam 2 MG/ML VIAL IV SCH ×6 (00:23→22:18)
[2022-12-27 01:32] VITALS: O2SAT 96
[2022-12-27] MEDS: LORazepam 2 MG/ML VIAL IV SCH ×6 (02:02→21:00)
[2022-12-27] MEDS: SCOPOLAMINE HYDROBROMIDE PATCH TD SCH (10:01)
[2022-12-28] MEDS: LORazepam 2 MG/ML VIAL IV SCH ×6 (01:08→20:08)
[2022-12-29] MEDS: LORazepam 2 MG/ML VIAL IV SCH ×6 (01:00→21:43)
[2022-12-29] MEDS: GLYCOPYRROLATE 0.2 MG/ML SYR IV PRN ×2 (10:12→23:50)
[2022-12-30] MEDS: LORazepam 2 MG/ML VIAL IV SCH ×7 (01:00→22:20)
[2022-12-30] MEDS: SCOPOLAMINE HYDROBROMIDE PATCH TD SCH (08:23)
[2022-12-30] MEDS ORDERED: LORazepam 2 MG/ML VIAL IV PRN (13:25)
[2022-12-30] MEDS: MORPHINE 2 MG/ML SYR IV PRN (18:19)
[2022-12-31] MEDS: LORazepam 2 MG/ML VIAL IV SCH ×3 (01:35→10:21)
[2022-12-31] MEDS: MORPHINE 2 MG/ML SYR IV PRN (03:00)
[2022-12-31 08:17] VITALS: BP 83/47; TEMP 98.3
== END 2022-12-31 12:16 | disposition expired | DRG 951 ==
LOC: 2ND 11:02
PROVIDERS: ADMIT Internal Medicine Hematology & Oncology; ATTEND Internal Medicine Hematology & Oncology
DX: Z51.5 Encounter for palliative care (principal)
CPT/HCPCS: J2270